=== PATIENT | male | born 1965 | race Caucasian/White ===

== ENCOUNTER 2019-04-28 18:04 | Inpatient (IN) | payer MEDICARE ==
[~2019-04-28] VITALS: Ht 162.6 cm; Wt 76.4 kg
[2019-04-28 18:40] LABS: BASOPHILS 0.1 % (0-2); EOSINOPHILS 0 % (0-7); HEMATOCRIT 30.4 % (42.0-54.0); IMMATURE GRANULOCYTES 0.4 % (0-5); LYMPHOCYTES 8.1 % (15-50); MCH 29.1 pg (26.0-34.0); MCHC 32.9 g/dL (31.0-37.0); MCV 88.4 fL (80.0-100.0); MEAN PLATELET VOLUME 10.9 fL (7.4-10.4); MONOCYTES 7.7 % (2-11); NEUTROPHILS 83.7 % (40-80); RBC 3.44 10x6/uL (4.20-6.10); RDW 16.3 % (11.5-14.5); WBC 16.3 10x3/uL (4.8-10.8)
[2019-04-28 18:42] LABS: PLATELET COUNT 238 10x3/uL (130-400)
[2019-04-28 19:05] LABS: APTT 32.7 SECONDS (22.8-39.4); INR 1.55 (0.85-1.17)
[2019-04-28 19:07] LABS: ALBUMIN 3.6 g/dL (3.4-5.0); ALKALINE PHOSPHATASE 104 U/L (46-116); ALT (SGPT) 15 U/L (10-68); CALC OSMOLALITY 277 mosm/kg (275-300); CALCIUM 9.6 mg/dL (8.5-10.1); CARBON DIOXIDE 29.1 mmol/L (21.0-32.0); CHLORIDE - SERUM 96 mmol/L (98-107); CREATININE - SERUM 6.1 mg/dL (0.6-1.3); GLUCOSE 103 mg/dL (74-106); POTASSIUM - SERUM 4.6 mmol/L (3.5-5.1); PROTEIN - SERUM 8.3 g/dL (6.4-8.2); SODIUM 137 mmol/L (136-145); UREA NITROGEN 25 mg/dL (7-18); eGFR NON AFRICAN AMERICAN 10 mL/min (90-120)
[2019-04-28 19:19] LABS: CREATINE KINASE 72 UL (21-232); MAGNESIUM - SERUM 1.9 mg/dL (1.8-2.4); TROPONIN-I 0.028 ng/mL (0.000-0.060)
[2019-04-28 19:54] LABS: CREATINE KINASE 68 UL (21-232); TROPONIN-I 0.033 ng/mL (0.000-0.060)
[2019-04-28] MEDS ORDERED: AMBIEN10 MG PO (22:25)
[2019-04-28] MEDS ORDERED: ATIVAN1 MG PO (22:26)
[2019-04-28] MEDS ORDERED: PERCOCET 5-3251 TAB PO (22:28)
[2019-04-28 23:29] VITALS: BP 149/73; BMI 28.4
[2019-04-29] VITALS (12 sets, daily range): BP systolic 118–183; BP diastolic 60–79; Ht 162.6 cm; Wt 76.4 kg
[2019-04-29 01:42] LABS: CREATINE KINASE 70 UL (21-232); TROPONIN-I 0.046 ng/mL (0.000-0.060)
[2019-04-29 07:07] LABS: BASOPHILS 0.1 % (0-2); EOSINOPHILS 0 % (0-7); HEMOGLOBIN 10.7 g/dL (13.5-17.5); IMMATURE GRANULOCYTES 0.9 % (0-5); LYMPHOCYTES 9.5 % (15-50); MCH 29.6 pg (26.0-34.0); MCHC 33.4 g/dL (31.0-37.0); MCV 88.6 fL (80.0-100.0); MEAN PLATELET VOLUME 10.7 fL (7.4-10.4); MONOCYTES 10.2 % (2-11); NEUTROPHILS 79.3 % (40-80); PLATELET COUNT 219 10x3/uL (130-400); RBC 3.61 10x6/uL (4.20-6.10); RDW 16.4 % (11.5-14.5); WBC 16.3 10x3/uL (4.8-10.8)
[2019-04-29 07:32] LABS: ALBUMIN 3.5 g/dL (3.4-5.0); ALKALINE PHOSPHATASE 114 U/L (46-116); CALCIUM 9.2 mg/dL (8.5-10.1); CARBON DIOXIDE 26.3 mmol/L (21.0-32.0); CHLORIDE - SERUM 95 mmol/L (98-107); CKMB 1.1 U/L (0.0-3.6); CREATINE KINASE 85 UL (21-232); GLUCOSE 83 mg/dL (74-106); POTASSIUM - SERUM 4.8 mmol/L (3.5-5.1); PROTEIN - SERUM 8.4 g/dL (6.4-8.2); SODIUM 139 mmol/L (136-145)
[2019-04-29 07:33] LABS: CALC OSMOLALITY 285 mosm/kg (275-300); CREATININE - SERUM 7.9 mg/dL (0.6-1.3); UREA NITROGEN 39 mg/dL (7-18)
[2019-04-29 07:34] LABS: ALT (SGPT) 444 U/L (10-68); eGFR NON AFRICAN AMERICAN 8 mL/min (90-120)
[2019-04-29 08:32] LABS: AMYLASE - SERUM 35 U/L (25-115); LIPASE 518 U/L (73-393)
[2019-04-29] MEDS ORDERED: FOSRENOL1000 MG PO (10:04)
[2019-04-29] MEDS ORDERED: LISINOPRIL20 MG PO (10:04)
[2019-04-29] MEDS ORDERED: NEPHRO-VITE RX1 TAB PO (10:05)
[2019-04-29] MEDS ORDERED: OMEPRAZOLE20 M1 PO (10:05)
[2019-04-29] MEDS ORDERED: ZOLOFT100 MG PO (10:05)
[2019-04-29] MEDS ORDERED: LYRICA75 MG PO (10:06)
[2019-04-29] MEDS ORDERED: CATAPRES0.1 MG PO (10:06)
[2019-04-29 10:42] LABS: APTT 36.1 SECONDS (22.8-39.4); INR 1.77 (0.85-1.17)
[2019-04-29 20:55] LABS: PROTEIN - BODY FLUID 6.1 G/DL
[2019-04-29 21:00] LABS: MESOTHELIALS BF 2 %; NEUT - BF 90 %
[2019-04-30] VITALS (24 sets, daily range): BP systolic 98–156; BP diastolic 46–76
[2019-04-30 05:41] LABS: BASOPHILS 0.2 % (0-2); EOSINOPHILS 0.1 % (0-7); HEMATOCRIT 28.7 % (42.0-54.0); HEMOGLOBIN 9.4 g/dL (13.5-17.5); IMMATURE GRANULOCYTES 0.9 % (0-5); LYMPHOCYTES 7.1 % (15-50); MCH 28.9 pg (26.0-34.0); MCHC 32.8 g/dL (31.0-37.0); MCV 88.3 fL (80.0-100.0); MEAN PLATELET VOLUME 10.7 fL (7.4-10.4); MONOCYTES 6.3 % (2-11); NEUTROPHILS 85.4 % (40-80); PLATELET COUNT 177 10x3/uL (130-400); RBC 3.25 10x6/uL (4.20-6.10); RDW 16.2 % (11.5-14.5); WBC 18.5 10x3/uL (4.8-10.8)
[2019-04-30 06:04] LABS: ALBUMIN 2.9 g/dL (3.4-5.0); BILIRUBIN - TOTAL 0.46 mg/dL (0.2-1.3); CALCIUM 8.1 mg/dL (8.5-10.1); CARBON DIOXIDE 25.1 mmol/L (21.0-32.0); CREATININE - SERUM 9.5 mg/dL (0.6-1.3); PHOSPHOROUS 8.9 mg/dL (2.5-4.9); POTASSIUM - SERUM 5.1 mmol/L (3.5-5.1); PROTEIN - SERUM 6.3 g/dL (6.4-8.2)
[2019-04-30 08:34] LABS: LIPASE 1006 U/L (73-393)
--- NOTE | 2019-04-30 08:43 | OP ---
PATIENT NAME: GERALDINE HOWELL MEDICAL RECORD: [id number] :67 LOCATION:D.CVI D.CV03 ADMISSION DATE:04/29/19 SURGEON: ZACHARY GREENBERG MD DATE OF OPERATION: 04/29/2019 SURGEON: Zachary Greenberg MD DYE REEL OPERATOR HELPER: Asa Hutchinson. OPERATION PERFORMED: Subxiphoid pericardial window. PREOPERATIVE DIAGNOSIS: Pericardial effusion and chronic kidney failure. POSTOPERATIVE DIAGNOSIS: Pericardial effusion and chronic kidney failure. ANESTHESIA: General endotracheal anesthesia. ESTIMATED BLOOD LOSS: Minimal. SPECIMENS: Pericardial fluid for aerobic, anaerobic, fungal and AFB cultures, cytology, chemistry, cell count and pericardial biopsy for permanent pathology. CONDITION: Stable. DISPOSITION: ICU. OPERATIVE FINDINGS: 1. Transesophageal echocardiography confirmed circumferential pericardial effusion with possible early right ventricular collapse, no residual fluid after pericardial drainage. 2. A 1 x 1 cm pericardial window, fibrinous debris within the pericardial cavity and a total of 600 cc of bloody appearing pericardial fluid with resultant blood pressure increased by 20-mm after drainage. 3. Drain placed within the pericardial cavity. OPERATIVE INDICATION: Pericardial effusion. DESCRIPTION OF PROCEDURE: The patient was brought to the operating suite. General anesthesia was obtained. The patient was prepped and draped. Vertical incision made over the xiphoid, portion of the xiphoid was removed. Upward retraction on the costal margin. The pericardium was identified, aspirated and an incision was made. Fluid was drained and captured for a specimen. The 1 x 1 cm biopsy was removed. Direct finger palpation revealed some fibrinous debris. Suction was used to remove the remainder of the fluid. A drain was placed through a separate stab wound into the diaphragmatic surface of the pericardium. Marcaine was instilled. Fascia was closed. Subcutaneous tissue was closed. Skin was closed. Dermabond was placed. The needle and sponge counts reported as correct and the patient was taken to the cardiovascular intensive care in stable condition. TRANSINT:[id number] Voice Confirmation ID: [id number] DOCUMENT ID: [id number] OPERATIVE REPORT [id number] GERALDINE HOWELL DANIEL W MD at 0843 CC: SHERMAN DICKSON MD and CHEMO KNOWLES MD [id number] DICTATION DATE: 04/29/19 180 FIRE SUPPORT SPECIALIST: 04/29/19 4931 ADM IN [facility] [address] [id number]
[2019-04-30 08:48] LABS: AMYLASE - SERUM 55 U/L (25-115)
[2019-05-01] VITALS (21 sets, daily range): BP systolic 87–154; BP diastolic 28–68
[2019-05-01 05:53] LABS: HEMATOCRIT 31.9 % (42.0-54.0); HEMOGLOBIN 10.8 g/dL (13.5-17.5); MCH 29.3 pg (26.0-34.0); MCHC 33.9 g/dL (31.0-37.0); MCV 86.4 fL (80.0-100.0); MEAN PLATELET VOLUME 10.7 fL (7.4-10.4); RBC 3.69 10x6/uL (4.20-6.10); RDW 15.8 % (11.5-14.5); WBC 16.9 10x3/uL (4.8-10.8)
[2019-05-01 06:21] LABS: ALBUMIN 3.1 g/dL (3.4-5.0); ANION GAP 18.3 mmol/L (8-16); BILIRUBIN - DIRECT 0.19 mg/dL (0.00-0.30); BILIRUBIN - INDIRECT 0.28 mg/dL (0.00-1.00); BILIRUBIN - TOTAL 0.47 mg/dL (0.2-1.3); CALCIUM 8.7 mg/dL (8.5-10.1); CARBON DIOXIDE 26.5 mmol/L (21.0-32.0); CREATININE - SERUM 7.8 mg/dL (0.6-1.3); PHOSPHOROUS 6.8 mg/dL (2.5-4.9); POTASSIUM - SERUM 3.8 mmol/L (3.5-5.1)
[2019-05-01 07:13] LABS: HEPATITIS C ANTIBODY <0.1 (0.0-0.9)
[2019-05-01 21:06] LABS: ACID FAST SMEAR Negative (()); AFB SPECIMEN PROCESSING Concentration (())
[2019-05-02 03:00] VITALS: BP 100/61
[2019-05-02 06:04] LABS: HEMATOCRIT 26.4 % (42.0-54.0); HEMOGLOBIN 8.8 g/dL (13.5-17.5); MCH 28.7 pg (26.0-34.0); MCHC 33.3 g/dL (31.0-37.0); MEAN PLATELET VOLUME 10.8 fL (7.4-10.4); RBC 3.07 10x6/uL (4.20-6.10); RDW 16.3 % (11.5-14.5); WBC 13.1 10x3/uL (4.8-10.8)
[2019-05-02 06:24] LABS: ANION GAP 21.5 mmol/L (8-16); BILIRUBIN - TOTAL 0.41 mg/dL (0.2-1.3); CALCIUM 8.6 mg/dL (8.5-10.1); CARBON DIOXIDE 22.4 mmol/L (21.0-32.0); CREATININE - SERUM 9.1 mg/dL (0.6-1.3); POTASSIUM - SERUM 3.9 mmol/L (3.5-5.1); PROTEIN - SERUM 6.3 g/dL (6.4-8.2)
[2019-05-02 08:33] VITALS: BP 142/68
[2019-05-02 12:06] VITALS: BP 142/53
[2019-05-02 15:00] VITALS: BP 132/71
[2019-05-02 20:00] VITALS: BP 107/56
[2019-05-03] VITALS: BP 132/53
[2019-05-03 04:00] VITALS: BP 137/71
[2019-05-03 05:33] LABS: HEMOGLOBIN 7.8 g/dL (13.5-17.5); MCH 28.6 pg (26.0-34.0); MCHC 33.9 g/dL (31.0-37.0); MCV 84.2 fL (80.0-100.0); MEAN PLATELET VOLUME 9.8 fL (7.4-10.4); RBC 2.73 10x6/uL (4.20-6.10); RDW 16.1 % (11.5-14.5)
[2019-05-03 06:01] LABS: ALBUMIN 2.8 g/dL (3.4-5.0); ANION GAP 21.5 mmol/L (8-16); BILIRUBIN - TOTAL 0.43 mg/dL (0.2-1.3); CALCIUM 8.6 mg/dL (8.5-10.1); CARBON DIOXIDE 19.8 mmol/L (21.0-32.0); CREATININE - SERUM 10.7 mg/dL (0.6-1.3); POTASSIUM - SERUM 4.3 mmol/L (3.5-5.1); PROTEIN - SERUM 6.5 g/dL (6.4-8.2)
[2019-05-03 08:25] VITALS: BP 131/70
[2019-05-03 14:08] LABS: FUNGUS STAIN Final report (())
[2019-05-03 20:20] VITALS: BP 144/62
[2019-05-04] VITALS: BP 134/62
[2019-05-04 04:00] VITALS: BP 146/63
[2019-05-04 05:21] LABS: HEMATOCRIT 23.4 % (42.0-54.0); HEMOGLOBIN 7.9 g/dL (13.5-17.5); MCH 28.7 pg (26.0-34.0); MCHC 33.8 g/dL (31.0-37.0); MCV 85.1 fL (80.0-100.0); MEAN PLATELET VOLUME 10.2 fL (7.4-10.4); RBC 2.75 10x6/uL (4.20-6.10); RDW 16.3 % (11.5-14.5); WBC 9.3 10x3/uL (4.8-10.8)
[2019-05-04 05:53] LABS: ALBUMIN 2.8 g/dL (3.4-5.0); ANION GAP 16.7 mmol/L (8-16); BILIRUBIN - TOTAL 0.45 mg/dL (0.2-1.3); CALCIUM 8.7 mg/dL (8.5-10.1); CREATININE - SERUM 8.4 mg/dL (0.6-1.3); POTASSIUM - SERUM 4.1 mmol/L (3.5-5.1); PROTEIN - SERUM 6.3 g/dL (6.4-8.2)
[2019-05-04 06:13] LABS: CARBON DIOXIDE 27.4 mmol/L (21.0-32.0)
[2019-05-04 08:00] VITALS: BP 168/77
--- NOTE | 2019-05-04 14:28 | EC ---
PATIENT:GERALDINE HOWELL DATE OF SERVICE: 04/29/19 SEX: M MEDICAL RECORD: [id number] DATE OF : 67 LOCATION:D.M2 D.212 AGE OF PATIENT: 53 ADMISSION DATE: 04/29/19 REFERRING PHYSICIAN: INTERPRETING PHYSICIAN: CHEMO KNOWLES MD ECHOCARDIOGRAM REPORT ECHO CHARGES 4 ECHO COMPLETE Date: 04/28/19 CLINICAL DIAGNOSIS: PLEURAL EFFUSION/CP ECHOCARDIOGRAPHIC MEASUREMENTS (adult normal given) AC root (d.<3.7cm) 3.4 cm LV Septum d (<1.2 cm> 1.6 cm Valve Excursion 2.3 cm LV Septum (systole) 2.1 cm Left Atria (s.<4.0cm> 4.5 cm LVPW d(<1.2cm) 1.6 cm RV (d.<2.3cm) 2.3 cm LVPW (sytole) 2.6 cm LV diastole(<5.6CM) 5.0 cm MV E-F(>70mm/sec) cm LV systole 2.2 cm LVOT Diameter 1.6 cm MV exc.(>10mm) cm Est.ejection fraction (50-75%) % DOPPLER: LVIT cm/sec A 69.0 cm/sec E 168 cm/sec LA cm/sec RVSP 44.2 mmHg LVOT 136 cm/sec AOP1/2T m/s Asc. Ao 241 cm/sec RVOT 66.0 cm/sec RA cm/sec PA 104 cm/sec AV Gradient Peak 23.3 mmHg AV Mean 10.2 mmHg AV Area 1.4 cm MV Gradient Peak 16.0 mmHg MV Mean 4.1 mmHg MV Area cm COMMENTS: Vending Machine Refiller: Mario DAVIDOE Career Manager: 3 Dr. Ellis TAPE# PACS Pericardial Effusion Y DATE OF SERVICE: 04/29/2019 Adequate 2D, color flow imaging, spectral Doppler, and M-Mode LVH is present. LV internal dimension is normal. Wall motion is normal. EF is greater than or equal to 55%. Aortic valve sclerosis is without stenosis by Doppler interrogation. Left atrium is dilated at 4.5 cm. Mitral valve is thickened. Mitral annular calcification. Mild MR. Right-sided chambers are grossly normal. Mild TR. Note is made of moderate pericardial effusion with no evidence of hemodynamic compromise. ECHOCARDIOGRAM REPORT [id number] GERALDINE HOWELL TRANSINT:[id number] Voice Confirmation ID: [id number] DOCUMENT ID: [id number] CHEMO KNOWLES MD at 1428 CC: [id number] DICTATION DATE: 04/29/[address] CONTRACTOR: 04/29/19 1529 ADM IN [facility] [address] [place] [address]
--- NOTE | 2019-05-04 16:29 | MORECARE ---
CASE MANAGEMENT DISCHARGE SUMMARY PATIENT: GERALDINE HOWELL UNIT: [id number] ADM DATE: 04/29/19 AGE: 53 : 67 SEX: M ROOM/BED: D.[facility] AUTHOR: LIZBTE MCCOY PHYSICIAN: REFERRING PHYSICIAN: AMY WHITE MD DATE OF SERVICE: 05/04/19 Discharge Plan Patient Name: GERALDINE HOWELL Facility: [facility]:[place] : 1965 Planned Disposition: Home Anticipated Discharge Date: 05/05/19 Discharge Date: Expected LOS: 6 Initial Reviewer: [email or web address] Initial Review Date: 04/28/2019 Generated: 05/04/19 5:29 pm DCPIA - Discharge Planning Initial Assessment Updated by [id number]: Juan F Craven on 05/04/19 4:28 pm * Is the patient Alert and Oriented? Yes * How many steps to enter\exit or inside your home? 0-O / 2-I * PCP DR. DAMON CAMPA * Pharmacy [facility] [place] * Preadmission Environment Home with Family * ADLs Independent * Equipment Cane * Other Equipment NO MEDICAL EQUIPMENT PROVIDER PREFERNCE (USE ONE IN [place] IF NEEDED) * List name and contact numbers for known caregivers / representatives who currently or will assist patient after discharge: GURPREET HOWELL, MOTHER, * Verbal permission to speak to the caregivers and representatives has been obtained from the patient. N/A * Community resources currently utilized Other * Please name any agencies selected above. OUTPATIENT DIALYSIS, [facility], MWF, 0600, DRIVES SELF * Additional services required to return to the preadmission environment? No * Can the patient safely return to the preadmission environment? Yes * Has this patient been hospitalized within the prior 30 days at any hospital? No Coverage Notice Reviewer: [id number] - Juan F Craven Notice Issued Date-Time: 05/04/2019 14:55 Notice Type: IM Discharge Notice Notice Delivered To: Patient Relationship to Patient: Assistant Produce Manager Name: Delivery Method: HAND - Hand Delivered Kelsie Days: Prior Verbal Notification: Recipient Understood Notice: Yes Recipient Signature: Yes Med Rec Note Co-signed by Attending: Coverage Notice Comment: Patient Name: GERALDINE HOWELL Page [phone] at 1629 All edits/amendments must be made on the electronic document DICTATION DATE: 05/04/191628 APIGEE DEVELOPER: BERYL 05/04/191628 RPT#: [id number] DC DATE: STATUS: ADM IN [facility] [address] [place] [address] END OF REPORT
--- NOTE | 2019-05-04 16:38 | MORECARE ---
CASE MANAGEMENT DISCHARGE SUMMARY PATIENT: GERALDINE HOWELL UNIT: [id number] ADM DATE: 04/29/19 AGE: 53 : 67 SEX: M ROOM/BED: D.2121 AUTHOR: DARIUSDOC PHYSICIAN: REFERRING PHYSICIAN: AMY KC MD DATE OF SERVICE: 05/04/19 Discharge Plan Patient Name: GERALDINE HOWELL Facility: [facility]:[place] : 1965 Planned Disposition: Home Anticipated Discharge Date: 05/05/19 Discharge Date: Expected LOS: 6 Initial Reviewer: [email or web address] Initial Review Date: 04/28/2019 Generated: 05/04/19 5:38 pm Comments DCP- Discharge Planning Updated by [email or web address]: Juan F Craven on 05/04/19 3:[address] Patient Name: GERALDINE HOWELL Admission Status: ER Accout number: [id number] Admission Date: 04-29-2019 : 1965 Admission Diagnosis:PERICARDIAL EFFUSION (NONINFLAMMATORY) Attending: Amy Kc Current LOS: 5 Anticipated DC Date: 05-05-2019 Planned Disposition: Home Primary Insurance: MEDICARE A & B Discharge Planning Comments: CM MET WITH PT IN ROOM TO DISCUSS DISCHARGE PLANNING AND NEEDS. PT REPORTS LIVING AT HOME INDEPENDENTLY WITH HIS MOTHER. PT HAS A CANE THAT HE USES SOMETIMES WITH NO MEDICAL EQUIPMENT PROVIDER PREFERENCE. PT HAS NO OUTSIDE SERVICES ASSISTING IN THE HOME. PT GOES TO OUTPATIENT DIALYSIS IN [facility], 0600AM SCHEDULE, PT DRIVES SELF. CM DISCUSSED AVAILABILITY OF HOME HEALTH, REHAB SERVICES AND MEDICAL EQUIPMENT. PT DENIES DISCHARGE NEEDS, REPORTS HIS SISTER WILL PICK HIM UP FOR DISCHARGE HOME. IMPORTANT MESSAGE FROM MEDICARE PROVIDED AND EXPLAINED. PT PLANS TO DISCHARGE HOME WITH MOTHER, HAS NO ANTICIPATED DISCHARGE NEEDS. FAMILY TO TRANSPORT HOME. CM TO FOLLOW AND ASSIST IF NEEDED. Mailroom Coordinator: Juan F Craven DCPIA - Discharge Planning Initial Assessment Updated by [email or web address]: Juan F Craven on 05/04/19 4:28 pm * Is the patient Alert and Oriented? Yes * How many steps to enter\exit or inside your home? 0-O / 2-I * PCP DR. DAMON CAMPA * Pharmacy [facility] [place] * Preadmission Environment Home with Family * ADLs Independent * Equipment Cane * Other Equipment NO MEDICAL EQUIPMENT PROVIDER PREFERNCE (USE ONE IN [place] IF NEEDED) * List name and contact numbers for known caregivers / representatives who currently or will assist patient after discharge: GURPREET OHWELL, MOTHER, * Verbal permission to speak to the caregivers and representatives has been obtained from the patient. N/A * Community resources currently utilized Other * Please name any agencies selected above. [facility], M[facility], 0600, DRIVES SELF * Additional services required to return to the preadmission environment? No * Can the patient safely return to the preadmission environment? Yes * Has this patient been hospitalized within the prior 30 days at any hospital? No Coverage Notice Reviewer: [email or web address] Lisa Craven Notice Issued Date-Time: 05/04/2019 14:55 Notice Type: IM Discharge Notice Notice Delivered To: Patient Relationship to Patient: Crematory Attendant Name: Delivery Method: HAND - Hand Delivered Kelsie Days: Prior Verbal Notification: Recipient Understood Notice: Yes Recipient Signature: Yes Med Rec Note Co-signed by Attending: Coverage Notice Comment: Last DP export: 05/04/19 3:29 pm Patient Name: GERALDINE HOWELL Page [phone] at 1638 All edits/amendments must be made on the electronic document DICTATION DATE: 05/04/191637 SUPERVISOR GRAIN AND YEAST PLANTS: BERYL 05/04/191637 RPT#: [id number] DC DATE: STATUS: ADM IN [facility] [address] [place] [address] END OF REPORT
[2019-05-04 20:00] VITALS: BP 160/72
[2019-05-05] VITALS: BP 173/80
[2019-05-05 04:30] VITALS: BP 187/80
[2019-05-05 06:37] LABS: BASOPHILS 0.3 % (0-2); HEMATOCRIT 24.7 % (42.0-54.0); HEMOGLOBIN 8.1 g/dL (13.5-17.5); IMMATURE GRANULOCYTES 0.5 % (0-5); MCHC 32.8 g/dL (31.0-37.0); MCV 85.5 fL (80.0-100.0); MEAN PLATELET VOLUME 10.4 fL (7.4-10.4); MONOCYTES 13.2 % (2-11); PLATELET COUNT 140 10x3/uL (130-400); RBC 2.89 10x6/uL (4.20-6.10); RDW 16.6 % (11.5-14.5); WBC 9.2 10x3/uL (4.8-10.8)
[2019-05-05 07:15] LABS: ALBUMIN 2.8 g/dL (3.4-5.0); BILIRUBIN - TOTAL 0.46 mg/dL (0.2-1.3); CALCIUM 9.5 mg/dL (8.5-10.1); CARBON DIOXIDE 27.5 mmol/L (21.0-32.0); CREATININE - SERUM 7.4 mg/dL (0.6-1.3); PHOSPHOROUS 5.5 mg/dL (2.5-4.9); POTASSIUM - SERUM 3.5 mmol/L (3.5-5.1); PROTEIN - SERUM 6.8 g/dL (6.4-8.2)
[2019-05-05 07:56] VITALS: BP 174/76
[2019-05-05 11:26] VITALS: BP 188/83
[2019-05-05 20:00] VITALS: BP 203/78
[2019-05-06] VITALS: BP 169/76
[2019-05-06 04:30] VITALS: BP 165/79
[2019-05-06 05:52] LABS: AMYLASE - SERUM 114 U/L (25-115)
[2019-05-06 05:53] LABS: LIPASE 2174 U/L (73-393)
[2019-05-06 08:00] VITALS: BP 158/69
--- NOTE | 2019-05-07 07:06 | DS ---
PATIENT:GERALDINE REGALADO :[birth year] MEDICAL RECORD: [id number] DISCHARGE SUMMARY ADMISSION DATE: 04/29/19 DISCHARGE DATE: 05/06/19 HISTORY OF PRESENT ILLNESS: Mr. Regalado is a 53-year-old white male with end-stage renal disease, chronic dialysis who came to the Emergency Room with recurrent nausea, vomiting, and chest pain, found on CT to have a large pericardial effusion in [place] and transferred here. HOSPITAL COURSE: The patient was seen by Dr. Larios and cardiology confirmed a large pericardial effusion. His amylase and lipase were also elevated. He did have a pericardial window done by Dr. Larios, it was 600 cc of pericardial fluid removed. Culture thus far has been negative. His amylase and lipase all normal, was improving at the time of discharge, his lipase was still elevated, but his amylase was normal. He was eating a regular diet. His abdominal ultrasound that revealed hepatosplenomegaly, otherwise negative. He underwent acute dialysis without difficulty. He was able to restart on his home meds. He was otherwise stable for discharge. DISCHARGE DIAGNOSES: 1. Chest pain due to pericardial effusion status post pericardial window. 2. Elevated amylase and lipase, etiology unclear. X-rays negative. 3. End-stage renal disease. 4. Hypertension. 5. End-stage renal disease. PLAN: The patient will be discharged today. He will resume his home meds, diet. I will see him on dialysis in [place] next week. He will be in [place] [facility] tomorrow. He will resume his home medications. TRANSINT:[id number] Voice Confirmation ID: [id number] DOCUMENT ID: [id number] SHERMAN DICKSON MD at 0706 CC: [id number] DICTATION DATE: 05/06/19 08 ANTHROPOLOGY FACULTY MEMBER: 05/07/19 0204 DIS IN [id number] [place] [address]
--- NOTE | 2019-05-07 07:56 | MORECARE ---
CASE MANAGEMENT DISCHARGE SUMMARY PATIENT: GERALDINE HOWELL UNIT: [id number] ADM DATE: 04/29/19 AGE: 53 : 67 SEX: M ROOM/BED: D.2121 AUTHOR: LIZBET MCCOY PHYSICIAN: REFERRING PHYSICIAN: AMY KC MD DATE OF SERVICE: 05/07/19 Discharge Plan Patient Name: GERALDINE HOWELL Facility: [facility]:[place] : 1965 Planned Disposition: Home Anticipated Discharge Date: 05/06/19 Discharge Date: 05/06/2019 Expected LOS: 7 Initial Reviewer: [email or web address] Initial Review Date: 04/28/2019 Generated: 05/07/19 8:56 am DCP- Discharge Planning Updated by [email or web address]: Juan F Craven on 05/04/19 3:[address] Patient Name: GERALDINE HOWELL Admission Status: ER Accout number: [id number] Admission Date: 04-29-2019 : 1965 Admission Diagnosis:PERICARDIAL EFFUSION (NONINFLAMMATORY) Attending: Amy Kc Current LOS: 5 Anticipated DC Date: 05-05-2019 Planned Disposition: Home Primary Insurance: MEDICARE A & B Discharge Planning Comments: CM MET WITH PT IN ROOM TO DISCUSS DISCHARGE PLANNING AND NEEDS. PT REPORTS LIVING AT HOME INDEPENDENTLY WITH HIS MOTHER. PT HAS A CANE THAT HE USES SOMETIMES WITH NO MEDICAL EQUIPMENT PROVIDER PREFERENCE. PT HAS NO OUTSIDE SERVICES ASSISTING IN THE HOME. PT GOES TO OUTPATIENT DIALYSIS IN [facility], 0600AM SCHEDULE, PT DRIVES SELF. CM DISCUSSED AVAILABILITY OF HOME HEALTH, REHAB SERVICES AND MEDICAL EQUIPMENT. PT DENIES DISCHARGE NEEDS, REPORTS HIS SISTER WILL PICK HIM UP FOR DISCHARGE HOME. IMPORTANT MESSAGE FROM MEDICARE PROVIDED AND EXPLAINED. PT PLANS TO DISCHARGE HOME WITH MOTHER, HAS NO ANTICIPATED DISCHARGE NEEDS. FAMILY TO TRANSPORT HOME. CM TO FOLLOW AND ASSIST IF NEEDED. Crusher Assembler: Juan F Craven DCPIA - Discharge Planning Initial Assessment Updated by [id number]: Juan F Craven on 05/04/19 4:28 pm * Is the patient Alert and Oriented? Yes * How many steps to enter\exit or inside your home? 0-O / 2-I * PCP DR. DAMON CAMPA * Pharmacy [facility] [place] * Preadmission Environment Home with Family * ADLs Independent * Equipment Cane * Other Equipment NO MEDICAL EQUIPMENT PROVIDER PREFERNCE (USE ONE IN [place] IF NEEDED) * List name and contact numbers for known caregivers / representatives who currently or will assist patient after discharge: GURPREET HOWELL, MOTHER, * Verbal permission to speak to the caregivers and representatives has been obtained from the patient. N/A * Community resources currently utilized Other * Please name any agencies selected above. [facility], [facility], [facility], 0600, DRIVES SELF * Additional services required to return to the preadmission environment? No * Can the patient safely return to the preadmission environment? Yes * Has this patient been hospitalized within the prior 30 days at any hospital? No Coverage Notice Reviewer: [email or web address] Lisa Craven Notice Issued Date-Time: 05/04/2019 14:55 Notice Type: IM Discharge Notice Notice Delivered To: Patient Relationship to Patient: Consumer Studies Professor Name: Delivery Method: HAND - Hand Delivered Kelsie Days: Prior Verbal Notification: Recipient Understood Notice: Yes Recipient Signature: Yes Med Rec Note Co-signed by Attending: Coverage Notice Comment: Last DP export: 05/04/19 3:38 pm Patient Name: GERALDINE HOWELL Page [phone] at 0756 All edits/amendments must be made on the electronic document DICTATION DATE: 05/07/19754 ASPHALT PAVING FOREMAN: BERYL 05/07/19754 RPT#: [id number] DC DATE:05/06/19 STATUS: DIS IN [facility] [address] [place] [address] END OF REPORT
--- NOTE | 2019-05-12 14:31 | TEE ---
PATIENT:GERALDINE HOWELL MEDICAL RECORD: [id number] LOCATION:D. D.212 AGE OF PATIENT: 53 ADMISSION DATE: 04/29/19 SEX: M REFERRING PHYSICIAN: INTERPRETING PHYSICIAN: JOSE GARCIA MD TRANSESOPHAGEAL ECHOCARDIOGRAM Date: 04/29/19 OLEKSANDR CHARGE Y INDICATIONS: PERICARDIAL WINDOW PREMEDICATIONS: PATIENT'S RESPONSE PROCEDURE DOPPLER MEASUREMENTS: LVIT LA PA 104 RA LVOT 136 RVOT 66.0 Asc. Ao 241 AV Gradient Peak 23.3 AV Mean 10.2 AV Area 1.4 MV Gradient Peak 16.0 MV Mean 4.1 MV Area INTERPRETATION: Doppler: 2-D: COLOR FLOW DOPPLER NORMAL SALINE STUDY: MISCELLANOUS: DIAGNOSIS: PLAN: Cloth Shader:Mary Ellis Direct Chill Caster: Mario HONRER COMMENTS: DATE OF SERVICE: 04/29/2019 PROCEDURE: Transesophageal echo evaluation during pericardial window procedure. FINDINGS: 1. Left ventricular chamber size is within normal limits. Left ventricular systolic function is normal. Overall ejection fraction estimated at 55% to 60%. 2. Left atrium, right atrium, and right ventricular chamber sizes are within normal limits. TRANSESOPHAGEAL ECHOCARDIOGRAM REPORT [id number] GERALDINE HOWELL 3. Valvular structures have normal structure and motion. 4. Doppler interrogation reveals no significant valvular insufficiency or stenosis. 5. Moderate pericardial effusion is present. After pericardial window was present, no discernible pericardial effusion was present any longer. TRANSINT:[id number] Voice Confirmation ID: [id number] DOCUMENT ID: [id number] at 1431 CC: [id number] DICTATION DATE: 04/30/1942 BEVERAGE SALES CONSULTANT: 04/30/19 2359 DIS IN [address] [place] [address]
[2019-05-28 16:08] LABS: FUNGUS MYCOLOGY CULTURE Final report (())
== END 2019-05-06 10:50 | disposition home or self-care (01) | DRG 270 ==
LOC: D.ER 18:04 → D.M2 19:02 → OBSVTIME 19:02 → D.M2 04-29 08:52 → D.CVICU 04-29 08:52 → D.M2 05-02 06:04
PROVIDERS: Family Medicine; Internal Medicine; Internal Medicine Nephrology; Thoracic Surgery (Cardiothoracic Vascular Surgery); ADMIT Internal Medicine Nephrology; ATTEND Internal Medicine Nephrology
PROC: B24BZZ4 Ultrasonography of Heart with Aorta, Transesophageal (ICD-10-PCS; 2019-04-29)
PROC: 0W9D0ZZ Drainage of Pericardial Cavity, Open Approach (ICD-10-PCS; principal; 2019-04-29 15:00)
DX: I31.3 Pericardial effusion (noninflammatory) (principal); N18.6 End stage renal disease; I12.0 Hypertensive chronic kidney disease with stage 5 chronic kidney disease or end stage renal disease; Z99.2 Dependence on renal dialysis; I25.10 Atherosclerotic heart disease of native coronary artery without angina pectoris; J44.9 Chronic obstructive pulmonary disease, unspecified; D63.1 Anemia in chronic kidney disease; R74.8 Abnormal levels of other serum enzymes

== ENCOUNTER 2020-02-20 22:26 | Inpatient (IN) | payer MEDICARE ==
[~2020-02-20] VITALS: Ht 162.6 cm; Wt 79.2 kg
--- NOTE | 2020-02-20 | NUR ---
A&O X 4. PT SOB. REPORTS PAIN/NAUSEA. SPO2 93% ON 10L HIGHFLOW. BP 193/101. INCONT BM, REPORTS NEED TO PASS ANOTHER BM. HERNESTO DURAN PAGED.
--- NOTE | ~2020-02-20 | TEE ---
PATIENT:GERALDINE HOWELL MEDICAL RECORD: [id number] LOCATION:[place] [address] AGE OF PATIENT: 54 ADMISSION DATE: 02/20/20 SEX: M REFERRING PHYSICIAN: INTERPRETING PHYSICIAN: MAMADOU GOODRICH MD TRANSESOPHAGEAL ECHOCARDIOGRAM Date: 02/25/20 OLEKSANDR CHARGE Y INDICATIONS: CABG PREMEDICATIONS: PATIENT'S RESPONSE PROCEDURE DOPPLER MEASUREMENTS: LVIT LA PA 90 RA LVOT 105 RVOT 86 Asc. Ao 166 AV Gradient Peak 11.1 AV Mean 4.9 AV Area 1.4 MV Gradient Peak 18.9 MV Mean 9.1 MV Area INTERPRETATION: Doppler: 2-D: COLOR FLOW DOPPLER NORMAL SALINE STUDY: MISCELLANOUS: DIAGNOSIS: PLAN: Field Nurse:Radha Goodrich Licensing Officer: Vipin JAFFE COMMENTS: DATE OF SERVICE: The transesophageal echocardiogram during coronary artery bypass grafting. Left ventricle shows mild left ventricular hypertrophy. Left atrium is dilated. Pre-CABG. The ejection fraction to 45% with mild aortic insufficiency and trace TRANSESOPHAGEAL ECHOCARDIOGRAM REPORT [id number] GERALDINE HOWELL tricuspid regurgitation and mild mitral regurgitation. Post-coronary artery bypass grafting. The ejection fraction is 55% to 60%. There is mild mitral regurgitation and trace tricuspid regurgitation. Dimensions of the left ventricle were maintained. TRANSINT:[id number] Voice Confirmation ID: [id number] DOCUMENT ID: [id number] MAMADOU GOODRICH MD CC: [id number] DICTATION DATE: 02/25/201747 GLASS CARRIER: 02/26/20 0506 ADM IN [facility] [address] [place] [address]
--- NOTE | ~2020-02-20 | HEMODYNAMI ---
PATIENT:GERALDINE HOWELL MEDICAL RECORD: [id number] : 67 LOC[id number] ADMISSION DATE: 02/20/20 Generatedon:02/23/202010:18 Patient name: GERALDINE HOWELL Patient #: [id number] SSN: [id number] : 1965 Date of study: 02/23/2020 Page: Of Hemodynamic Procedure Report Patient Data Patient Demographics Procedure consent was obtained First Name: GERALDINE Gender: Male Last Name: DANTE : 1965 Middle Initial: MONALISA Age: 54 year(s) Patient #: [id number] Race: SSN: [id number] Additional ID: [id number] Contact details [address]: [address] [place] [address] State: [place] City: [place] Zip code: [address] Past Medical History Allergies Allergen Reaction Date Comments Reported Other allergy 02/23/2020 PCN, SULFA, SUDAFED Admission Admission Data Admission Date: 02/20/2020 Admission Time: 23:06 Arrival Date: 02/23/2020 Arrival Time: 0:00 Admit Source: Other Insurance Payor: Medicare Room #: D.2134 [facility] #: [id number] Height (in.): 64 BSA: 1.74 (m2) Height (cm.): 162.56 BMI: 26.09 (kg/m2) Weight (lbs.): 151.99 Weight (kg.): 68.94 Lab Results Lab Result Date: 02/23/2020 Lab Result Time: 0:00 Biochemistry Name Units Result Min Max BUN mg/dl 43 --(----)-* 7 18 Creatinine mg/dl 8.9 --(----)-* 0.6 1.3 eGFR ml/min 7.728163 *-(----)-- 90 120 NONAFRICAN CBC Name Units Result Min Max Hematocrit % 32.3 *-(----)-- 42 54 Hemoglobin g/dl 10.1 *-(----)-- 13.5 17.5 Procedure Procedure Types Cath Procedure Diagnostic Procedure [facility] w/Coronaries Sedation Charges Moderate Sedation up to 15 minutes Peripheral Cath Diagnostic Procedure Abd/Extremity Aortagram Procedure Description Procedure Date Procedure Date: 02/23/2020 Procedure Start Time: 9:48 Procedure End Time: 10:16 Procedure Staff Name Function Kalyan Conner MD Performing Physician Emile Garcia RN Nurse Sophie Smith RT Scrub Traci Ziegler RT Monitor Indication COPD CAD Procedure Data Cath Procedure Fluoroscopy Diagnostic fluoroscopy Total fluoroscopy Time: 4.7 time: 4.7 min min Diagnostic fluoroscopy Total fluoroscopy dose: 334 dose: 334 mGy mGy Contrast Material Contrast Material Type Amount (ml) Isovue 370 45 Entry Location Entry Primary Successful Side Size Upsize Upsize Entry Closure Succes sful Closure Location (Fr) 1 (Fr) 2 (Fr) Remarks Device Remarks Femoral Right 6 Fr 6 Fr Exoseal artery Long Short Estimated blood loss: 5 ml Diagnostic catheters Device Type Used For End Catheter Placement MULTIPACK Pigtail 5 Fr Procedure catheter MULTIPACK JL 4.0 5Fr Procedure catheter MULTIPACK 3DRC 5Fr Procedure catheter Procedure Complications No complications Procedure Medications Medication Administration Route Dosage Oxygen etCO2 Nasal cannula 3 l/min Plavix P.O. 300 mg Lidocaine 2% added to field 20 Heparin Flush Bag added to field 2 bags (1000units/500ml NS) 0.9% NaCl I.V. Versed I.V. 0.5 mg Hemodynamics Rest BSA: 1.74 (m2) HGB: 10.1 (g/dl) O2 Consumption: Estimated: 205.06 (ml/min) O2 Co nsumption indexed: Estimated:117.85 (ml/min/m) Heart Rate: 67 (bpm) Pressure Samples Time Site Value (mmHg) Purpose Heart Use Rate(bpm) 9:57 LV 157/-2,28 Snapshot 66 9:58 AO 141/68(95) Pullback 65 9:58 LV 139/16,24 Pullback 65 Gradients Valve Time Site 1 Site 2 Mean SEP/DFP Peak To Heart Use (mmHg) (sec/min) Peak Rate (mmHg) (bpm) Aortic 9:58 LV AO 0 15 0 65 139/16,24 141/68(95) Calculations Valve P-P Mean Valve Index Valve Source Name Gradient Area Flow (cm2) Aortic 0 0 0 0 Snapshots Pre Cath Intra NCS Post Cath Vital Signs Time Heart Resp SPO2 etCO2 NIBP (mmHg) Rhythm Pain Sedation Rate (ipm) (%) (mmHg) Status Level (bpm) 9:31:09 67 13 88 33.6 129/81(107) NSR 0 (11) 10(A) , No pain 9:35:42 66 19 90 32.9 133/70(95) NSR 0 (11) 10(A) , No pain 9:40:12 67 36 90 32.1 126/77(104) NSR 0 (11) 10(A) , No pain 9:44:42 66 17 92 28.4 133/70(100) NSR 0 (11) 10(A) , No pain 9:49:14 65 17 93 32.9 139/117(127) NSR 0 (11) 10(A) , No pain 9:54:00 65 21 93 23.9 135/54(104) NSR 0 (11) 10(A) , No pain 10:00:15 65 22 94 29.1 94/53(72) NSR 0 (11) 10(A) , No pain 10:05:40 65 19 95 27.7 131/89(104) NSR 0 (11) 10(A) , No pain 10:11:32 66 19 94 27.6 93/53(88) NSR 0 (11) 10(A) , No pain 10:16:58 65 22 93 28.4 137/79(109) NSR 0 (11) 10(A) , No pain Medications Time Medication Route Dose Verified Delivered Reason Notes Effe ctiveness by by 9:32:35 Oxygen etCO2 3 Norred Buffie used for Nasal l/min Ubaldo Garcia RN procedure cannula 9:32:42 Plavix P.O. 300 Norred Buffie Per mg Ubaldo Garcia RN physician 9:32:53 Lidocaine 2% added 20ml Norred Norred for local to vial Ubaldo Conner MD anesthetic field 9:32:59 Heparin Flush added 2 Norred Norred used for Bag to bags Ubaldo Conner MD procedure (1000units/500ml field NS) 9:33:08 0.9% NaCl I.V. kvo Norred Buffie Per ml/hr Ubaldo Garcia RN physician 9:45:45 Versed I.V. 0.5 Kalyan perez mg Ubaldo Garcia RN sedation Procedure Log Time Note 8:34:21 Informed consent obtained and on chart 8:34:39 Diagnostic Cath Status : Elective 8:35:32 Indication : COPD 8:35:37 Indication : CAD 8:36:25 Lab Result : Hemoglobin 10.1 g/dl 8:36:25 Lab Result : eGFR NONAFRICAN 7.228558 ml/min 8:36:25 Lab Result : BUN 43 mg/dl 8:36:25 Lab Result : Creatinine 8.9 mg/dl 8:36:26 Lab Result : Hematocrit 32.3 % 8:36:31 Admit Source: Other 8:36:34 Patient Height : 64 inches 8:36:39 Patient Weight : 151.99 lbs 8:36:44 Arrival Date: 02/23/2020 12:00:00 AM 8:37:08 Insurance Payor : Medicare 8:40:48 Time tracking: Regular hours (M-F 7:00 - 5:00) 8:40:53 Plan of Care:Hemodynamics will remain stable., Cardiac rhythm will remain stable., Comfort level will be maintained., Respiratory function will remain adequate., Patient/ family verbilizes understanding of procedure., Procedure tolerated without complication., Recovers from procedure without complications.. 8:41:01 Procedure Status Elective Heart Cath (OP). 8:42:52 Lab results completed and on chart. 8:42:57 Risk of Mortality: 1.9 8:43:00 Risk of blood transfusion: 7.8 8:43:04 Risk of JULIO: 19.8 8:46:19 Stress Test: no; N/A ? 9:12:48 Emile Garcia RN sent for patient. Start room use. 9:21:22 Patient received from Med II to CCL 1 Alert and oriented. Tansferred to table in Supine position. 9:21:24 Warm blankets applied, and jordan hugger turned on for patient comfort. 9:21:24 Correct patient and procedure confirmed by team. 9:21:24 ECG and BP/O2 sat monitors applied to patient. 9:29:41 Vital chart was started 9:32:35 Oxygen 3 l/min etCO2 Nasal cannula was administered by Emile Garcia RN; used for procedure; Verbal order read back and verified. 9:32:42 Plavix 300 mg P.O. was administered by Emile Garcia RN; Per physician; Verbal order read back and verified. 9:32:53 Lidocaine 2% 20ml vial added to field was administered by Kalyan Conner MD; for local anesthetic; Verbal order read back and verified. 9:32:59 Heparin Flush Bag (1000units/500ml NS) 2 bags added to field was administered by Kalyan Conner MD; used for procedure; Verbal order read back and verified. 9:33:08 0.9% NaCl kvo ml/hr I.V. was administered by Emile Garcia RN; Per physician; Verbal order read back and verified. 9:39:22 Baseline sample Acquired. 9:39:23 Full Disclosure recording started 9:39:34 H&P Date Dictated: 02/20/2020 Within 30 days and on chart.. 9:39:35 Pre-procedure instructions explained to patient. 9:39:36 Pre-op teaching completed and patient verbalized understanding. 9:39:39 Family unavailable. 9:39:40 Patient NPO since Midnight. 9:39:52 Patient allergic to Other allergyPCN, SULFA, SUDAFED 9:39:55 Is the patient allergic to Iodine/contrast media? No. 9:39:57 Was the patient premedicated? N/A 9:39:59 Is patient on blood thinner?Yes 9:40:02 ACC The patient was administered the following blood thiners within the last 24 hours: ACCPlavix 9:40:04 Patient diabetic? No. 9:40:05 If diabetic: On Metformin? N/A 9:40:07 ----Pre-sedation anethsthesia assessment.---- 9:40:11 Previous problem with sedation/anesthesia? No ? 9:40:15 Snore? Unknown 9:40:17 Sleep apnea? Unknown 9:40:18 Deviated septum? No 9:40:20 Opens mouth fully? Yes 9:40:21 Sticks out tongue? Yes 9:40:30 Airway obstruction? Yes COPD 9:40:33 Dentures? No ? 9:40:36 Modified Jamison's test Ulnar < 7 seconds 9:40:38 Patient pain scale 0/10 ?. 9:40:48 IV patent on arrival in right antecubital with 0.9% NaCl at O. 9:40:55 Right Radial & Right Groin area was prepped with chlora-prep and draped in sterile fashion 9:40:57 Alarms reviewed by R. N. 9:40:57 Sharps counted by scrub and verified by R.N. 9:41:00 Use device set Radial Dx or PCI 9:41:02 ACIST Syringe (35354) opened to sterile field. 9:41:02 Medline Cath Pack ([id number]) opened to sterile field. 9:41:03 Bag Decanter (2002S) opened to sterile field. 9:41:03 ACIST Hand Control (37681) opened to sterile field. 9:41:04 ACIST Manifold (15463) opened to sterile field. 9:41:05 Tegaderm 4 x 4 (1626W) opened to sterile field. 9:41:06 MBrace Wrist Support ([id number]) opened to sterile field. 9:41:07 EMERALD Guide Wire (345-141) opened to sterile field. 9:41:08 SHEATH 6FR RAIN (0668189) opened to sterile field. 9:41:14 --------ALL STOP TIME OUT------ 9:41:16 Final Timeout: patient, procedure, and site verified with staff and physician. All members of the team are in agreement. 9:41:18 Right Radial & Right Groin site verified by team. 9:41:21 Fire Safety Assessment: A--An alcohol-based skin anteseptic being used preoperatively., C--Open oxygen or nitrous oxide is being used., D--An ESU, laser, or fiber-optic light is being used. 9:41:25 Physical assessment completed. ASA score P 2 - A patient with mild systemic disease as per Kalyan Conner MD. 9:41:30 4) 15-29 Severley reduced kidney function. 9:41:32 Maximum allowable contrast dose (3.7 X eGFR X 0.75)19 ml. 9:41:36 Sedation plan: IV Moderate Sedation Medication:Versed, Fentanyl 9:45:45 Versed 0.5 mg I.V. was administered by Emile Garcia RN; for sedation; Verbal order read back and verified. 9:48:00 Rhythm: sinus rhythm 9:48:06 Procedure started. 9:48:12 Local anesthetic to right radial artery with Lidocaine 2% by Kalyan Conner MD.INITIAL ACCESS ONLY 9:49:23 RADIAL NO GODD PROCEDDING TO GROIN. 9:49:28 Local anesthetic to right femoral artery with Lidocaine 2% by Kalyan Conner MD.ADDITIONAL ACCESS 9:50:22 MICROPUNCTURE 4FR Cook ([id number]) opened to sterile field. 9:51:28 Access obtained with 4Fr micropunture. 9:52:07 Use device set Femoral Dx 9:52:10 SHEATH 5FR Columbia (TSP753) opened to sterile field. 9:52:14 DIAGNOSTIC Multipack 5Fr catheter set (YH9501) opened to sterile field. 9:53:36 GLIDE WIRE Super Stiff Angled 260cm (WX3330) opened to sterile field. 9:53:58 GLIDEWIRE ANGLES STIFF 260 wire advanced. 9:55:02 SHEATH 6FR ARROW 45cm (CL-76028) opened to sterile field. 9:55:17 A 6 Fr Long sheath was inserted into the Right Femoral artery 9:57:10 Zero performed for pressure channel P1 9:57:50 LV hemodynamics recorded. 9:57:51 A MULTIPACK Pigtail 5 Fr catheter was advanced over the wire and used for Procedure. 9:57:53 LV gram done using NUNEZ 9:57:56 Injector settings: Ml/sec: 12, Volume: 8, 9:58:39 EF : 60 % 9:58:42 Catheter exchanged over wire. 9:58:53 A MULTIPACK JL 4.0 5Fr catheter was advanced over the wire and used for Procedure. 9:59:39 LCA angiography performed. 9:59:52 Injector settings: Ml/sec: 2, Volume: 4, 10:01:52 Catheter exchanged over wire. 10:02:01 A MULTIPACK 3DRC 5Fr catheter was advanced over the wire and used for Procedure. 10:02:49 RCA angiography performed. 10:02:51 Injector settings: Ml/sec: 2, Volume: 4, 10:02:55 ACCDominant side:Right 10:04:38 Abdominal angiogram w/ runoff was performed. 10:05:16 Sheath upsized to a 6 Fr Short. 10:06:28 EXCHANGING 6FR LONG SHEATH FOR 6 FR SHORT SHEATH. 10:06:45 Sheath removed intact; hemostasis achieved with Exoseal to the Right Femoral artery. 10:07:20 EXOSEAL 6Fr (EX600) opened to sterile field. 10:07:35 Procedure ended.(Physican Out) 10:07:46 Fluoroscopy time 04.70 minutes. 10:07:50 Fluoroscopy dose: 334 mGy 10:07:50 Flurop Dose total: 334 10:07:56 Dose Area Product 59772 mGy/cm. 10:08:14 Contrast amount:Isovue 370 45ml. 10:08:16 Maximum allowable dose exceeded? Yes. 10:08:17 Sharps counted by scrub and verified by R.N. 10:08:34 Post-op/insertion site Right Femoral artery dressed using a 4 x 4 and Tegaderm. 10:08:40 Post right femoral artery:stable, soft, clean and dry 10:09:21 Post Procedure Pulses reassessed and unchanged 10:09:27 Post-procedure physical assessment completed. ASA score P 2 - A patient with mild systemic disease as per Kalyan Conner MD. 10:09:34 Post procedure rhythm: unchanged. 10:09:37 Estimated blood loss: 5 ml 10:09:38 Post procedure instruction explained to patient.Patient verbalizes understanding. 10:09:39 Patient needs reinforcement of post procedure teaching. 10:10:31 Procedure type changed to Cath procedure, Diagnostic procedure, LHC, C w/Coronaries, Sedation Charges, Moderate Sedation up to 15 minutes, Peripheral Cath Diagnostic Procedure, Abd/Extremity, Aortagram 10:16:09 Procedure and supply charges have been captured, reviewed, submitted and are correct. 10:16:13 Procedure Complication : No complications 10:16:16 Vital chart was stopped 10:16:29 [facility] Findings: MVD- CABG consult 10:16:31 Operative report dictated upon procedure completion. 10:16:31 See physician's report for complete and final results. 10:16:33 Report given to Med II. 10:16:37 Patient transfered to Med II with Bed. 10:16:45 Procedure ended. 10:16:45 Full Disclosure recording stopped 10:16:55 End room use (Document Last) 10:17:43 End room use (Document Last) 10:18:21 End room use (Document Last) Device Usage Item Name Manufacture Quantity Catalog Hospital Part Current Mini mal Lot# / Number Charge Number Stock Stock Serial# Code ACIST Syringe Acist 1 87170 207203 450877 811362 20 (82579) Medical Systems Inc Medline Cath Medline 1 [id number] 654846 88847 573848 5 Pack ([id number]) Bag Decanter Microtek 1 2001S 776908 64008 001562 5 (2001S) Medical Inc. ACIST Hand Acist 1 83175 059502 598360 263903 5 Control Medical (90316) Systems Inc ACIST Acist 1 07497 311377 306721 099815 5 Manifold Medical (81725) Systems Inc Tegaderm 4 x 3M 1 1626W 520136 097680 243887 5 4 (1626W) MBrace Wrist Advanced 1 140-0250-00 961023 80755 986582 5 Support Vascular (407694890) Dynamics EMERALD Guide Cardinal 1 502-455 913352 312132 952857 5 WolfGIS (502-455) SHEATH 6FR Cardinal 1 1276316 366571 7308990 507586 5 [facility] (7817235) MICROPUNCTURE Cook Medical 1 W91270 284300 678752 740958 5 4FR Cook (J44143) SHEATH 5FR Terumo 1 ETV032 763175 523810 228550 5 Columbia (YLA358) DIAGNOSTIC Cardinal 1 EF0631 612590 73439 881665 30 Multipack 5Fr Health catheter set (NU7644) GLIDE WIRE Terumo 1 RR9778 209820 285678 603067 5 Super Stiff Angled 260cm (YI4643) SHEATH 6FR Teleflex 1 CL-38553 905639 876509 638070 5 ARROW 45cm (CL-02235) MULTIPACK Cardinal 1 529433 5 Pigtail 5 Fr Health catheter MULTIPACK JL Cardinal 1 847412 5 4.0 5Fr Health catheter MULTIPACK Cardinal 1 717573 5 3DRC 5Fr Health catheter EXOSEAL 6Fr Cardinal 1 EX600 571707 354771 021827 10 (EX600) Health Signature Audit [place] Stage Time Signature Unsigned Intra-Procedure 02/23/2020 Traci Ziegler 10:17:43 AM RT(R) Intra-Procedure 02/23/2020 Emile Garcia RN 10:18:21 AM Intra-Procedure 02/23/2020 Kalyan Conner MD 10:18:55 AM [place] [id number] [place] [address]
[~2020-02-20 22:26] MED LIST: AMBIEN10 MG PO; ATIVAN1 MG PO; CATAPRES0.1 MG PO; FOSRENOL1000 MG PO; LISINOPRIL20 MG PO; LYRICA75 MG PO; NEPHRO-VITE RX1 TAB PO; OMEPRAZOLE20 M1 PO; PERCOCET 5-3251 TAB PO; ZOLOFT100 MG PO
[2020-02-20] MEDS ORDERED: LISINOPRIL40 MG PO (22:45)
[2020-02-20 22:46] LABS: HEMATOCRIT 38.1 % (42.0-54.0); HEMOGLOBIN 12.2 g/dL (13.5-17.5); LYMPHOCYTES 4.9 % (15-50); MCH 30.6 pg (26.0-34.0); MCV 95.5 fL (80.0-100.0); MEAN PLATELET VOLUME 8.2 fL (7.4-10.4); PLATELET COUNT 224 10x3/uL (130-400); RBC 3.99 10x6/uL (4.20-6.10); RDW 17.8 % (11.5-14.5); WBC 17.9 10x3/uL (4.8-10.8)
[2020-02-20] MEDS ORDERED: HYDROCODON-ACE1 EAC7 PO (22:47)
[2020-02-20] MEDS ORDERED: NORMODYNE / TR200 MG PO (22:47)
[2020-02-20] MEDS ORDERED: LIPITOR20 MG PO (22:47)
[2020-02-20] MEDS ORDERED: HYDRALAZINE HCL25 MG PO (22:48)
[2020-02-20] MEDS ORDERED: BENTYL 20 MG TA20 MG PO (22:48)
[2020-02-20] MEDS ORDERED: NORVASC5 MG PO (22:49)
[2020-02-20] MEDS ORDERED: PLAVIX75 MG PO (22:49)
[2020-02-20] MEDS ORDERED: BAYER CHEWABLE81 MG PO (22:49)
[2020-02-20] MEDS ORDERED: RENA-VITE TABL0.8 MG PO (22:50)
[2020-02-20] MEDS ORDERED: TEMAZEPAM30 MG PO (22:50)
[2020-02-20] MEDS ORDERED: FUROSEMIDE40 MG PO (22:51)
[2020-02-20] MEDS ORDERED: GABAPENTIN100 MG PO (22:51)
[2020-02-20 22:55] LABS: APTT 33.2 SECONDS (22.8-39.4); INR 1.17 (0.85-1.17); PROTIME 14.9 SECONDS (11.6-15.0)
[2020-02-20 22:56] LABS: D-DIMER-QUANTITATIVE 1.22 ug/mLFEU (0.20-0.54)
[2020-02-20 23:06] LABS: ANION GAP 28.3 mmol/L (8-16); CALCIUM 8.6 mg/dL (8.5-10.1); CARBON DIOXIDE 24.9 mmol/L (21.0-32.0); CREATININE - SERUM 10.6 mg/dL (0.6-1.3); POTASSIUM - SERUM 5.2 mmol/L (3.5-5.1)
[2020-02-20 23:08] VITALS: BP 187/96
[2020-02-20 23:18] LABS: ALBUMIN 3.4 g/dL (3.4-5.0); BILIRUBIN - TOTAL 0.49 mg/dL (0.2-1.3); C-REACTIVE PROTEIN 12.6 mg/dL (0.0-0.9); MAGNESIUM - SERUM 1.7 mg/dL (1.8-2.4); PROTEIN - SERUM 8.2 g/dL (6.4-8.2)
[2020-02-20 23:25] LABS: TROPONIN-I 0.237 ng/mL (0.000-0.060)
[2020-02-21 02:18] VITALS: BP 155/84
--- NOTE | 2020-02-21 03:54 | NUR ---
STANDBY ASSIST TO BSC, NO SOB NOTED. CTM.
[2020-02-21 04:00] VITALS: BP 175/89
--- NOTE | 2020-02-21 04:40 | NUR ---
DR. GOODE INTO SEE/ASSESS PATIENT. STATES WILL CALL CARDIOLOGY PERSONALLY FOR CONSULT.
[2020-02-21 05:02] VITALS: BP 193/101; BMI 31.4
[2020-02-21 06:30] LABS: HEMATOCRIT 33.9 % (42.0-54.0); HEMOGLOBIN 10.9 g/dL (13.5-17.5); LYMPHOCYTES 8.4 % (15-50); MCH 30.6 pg (26.0-34.0); MCHC 32.2 g/dL (31.0-37.0); MCV 95.2 fL (80.0-100.0); MEAN PLATELET VOLUME 8.7 fL (7.4-10.4); NEUTROPHILS 86.1 % (40-80); PLATELET COUNT 218 10x3/uL (130-400); RBC 3.56 10x6/uL (4.20-6.10); RDW 18.1 % (11.5-14.5); WBC 15.3 10x3/uL (4.8-10.8)
[2020-02-21 06:58] LABS: ALBUMIN 2.9 g/dL (3.4-5.0); ANION GAP 29.6 mmol/L (8-16); BILIRUBIN - TOTAL 0.4 mg/dL (0.2-1.3); CALCIUM 8.4 mg/dL (8.5-10.1); CARBON DIOXIDE 25.2 mmol/L (21.0-32.0); CREATININE - SERUM 10.8 mg/dL (0.6-1.3); POTASSIUM - SERUM 5.8 mmol/L (3.5-5.1); PROTEIN - SERUM 6.8 g/dL (6.4-8.2)
[2020-02-21 07:48] LABS: TROPONIN-I 5.549 ng/mL (0.000-0.060)
[2020-02-21 07:49] LABS: PHOSPHOROUS 11.8 mg/dL (2.5-4.9)
[2020-02-21 09:13] VITALS: BP 173/90
[2020-02-21 12:39] LABS: % SATURATION 14 % (15-55); IRON 23 ug/dl (35-150); TOTAL IRON BIND CAPACITY 162 ug/dl (260-445); UNSAT IRON BIND CAPACITY 139 ug/dl (150-375)
--- NOTE | 2020-02-21 12:52 | NUR ---
I have reviewed this patient and I concur with the Shift Assessment completed by the Licensed Practical Nurse today this shift.
[2020-02-21 13:05] LABS: FERRITIN 757 ng/mL (3-244); LDH 267 U/L (85-227)
[2020-02-21 13:12] VITALS: BP 173/90
[2020-02-21 14:00] VITALS: BMI 26.1
--- NOTE | 2020-02-21 15:02 | NUR ---
SPOKE WITH DR. BEARD AND WENT OVER PT'S HOME MED LIST AND SHE STATES TO RESTART ALL MEDS EXCEPT LISIONOPRIL. I VERBALIZED UNDERSTANDING.
--- NOTE | 2020-02-21 15:45 | NUR ---
SCD'S PLACED ON PT'S LEGS BILATERALLY.
--- NOTE | 2020-02-21 15:56 | NUR ---
PT TAKEN TO DIALYSIS VIA BED.
--- NOTE | 2020-02-21 16:34 | NUR ---
UNABLE TO COLLECT URINE. PT ANURIC. UNABLE TO COLLECT VALERIA. PT HAS NOT HAD A BM.
--- NOTE | 2020-02-21 17:40 | NUR ---
DIALYSIS CALLED AND STATES PT'S BP IS 232/93 IF PT HAS PRN MED FOR BP. ASKED VERONICA ALBA IF SHE WANTS HYDRALAZINE 10MG IV OR CLONIDINE 0.1MG PO. SHE STATES TO BRING CLONODINE. WENT TO DIALYSIS AND GAVE PT CLONODINE 0.1MG PO. THIS NURSE STATED TO VERONICA ALBA TO LET ME KNOW IF BP DOESN'T CHANGE AND PT'S NEEDS HYDRALAZINE IV. SHE VERBALIZED UNDERSTANDING AND STATED SHE WOULD.
--- NOTE | 2020-02-21 19:16 | NUR ---
PATIENT IN DIALYSIS, WHITE BOARD UPDATED.
[2020-02-21 20:00] VITALS: BP 190/62
[2020-02-22] VITALS: BP 141/50
[2020-02-22 04:00] VITALS: BP 165/82
[2020-02-22 07:11] LABS: BASOPHILS 0.2 % (0-2); EOSINOPHILS 0.8 % (0-7); HEMATOCRIT 32.3 % (42.0-54.0); HEMOGLOBIN 10.1 g/dL (13.5-17.5); IMMATURE GRANULOCYTES 0.3 % (0-5); LYMPHOCYTES 12.2 % (15-50); MCH 30.1 pg (26.0-34.0); MCHC 31.3 g/dL (31.0-37.0); MCV 96.1 fL (80.0-100.0); MEAN PLATELET VOLUME 9.4 fL (7.4-10.4); MONOCYTES 5.6 % (2-11); NEUTROPHILS 80.9 % (40-80); RBC 3.36 10x6/uL (4.20-6.10); RDW 17.5 % (11.5-14.5)
[2020-02-22 07:18] LABS: PLATELET COUNT 164 10x3/uL (130-400); WBC 10.8 10x3/uL (4.8-10.8)
[2020-02-22 07:32] LABS: ALBUMIN 2.7 g/dL (3.4-5.0); ANION GAP 21.6 mmol/L (8-16); BILIRUBIN - TOTAL 0.34 mg/dL (0.2-1.3); CALCIUM 9.3 mg/dL (8.5-10.1); CARBON DIOXIDE 25.5 mmol/L (21.0-32.0); CREATININE - SERUM 8.9 mg/dL (0.6-1.3); POTASSIUM - SERUM 5.1 mmol/L (3.5-5.1); PROTEIN - SERUM 7.4 g/dL (6.4-8.2)
--- NOTE | 2020-02-22 07:54 | NUR ---
PT SITTING ON SIDE O FBED. HEAD DOWN ON BEDSIDE TABLE. RR EVEN AND UNLABORED ON 5L HF. DENIES NEEDS OR PAIN AT THIS TIME. CALL LIGHT WITHIN REACH. BED IN LOWEST POSITION. WILL CONTINUE TO MONITOR.
[2020-02-22 08:39] VITALS: BP 145/77
--- NOTE | 2020-02-22 09:37 | NUR ---
I have reviewed this patient and I concur with the Shift Assessment completed by the Licensed Practical Nurse today this shift.
--- NOTE | 2020-02-22 11:31 | NUR ---
NO UPDRAFT GIVEN PT IN DIALYSIS
--- NOTE | 2020-02-22 14:02 | EC ---
PATIENT:GERALDINE HOWELL DATE OF SERVICE: 02/20/20 SEX: M MEDICAL RECORD: [id number] DATE OF : 67 LOCATION:D.M2 D.213 AGE OF PATIENT: 54 ADMISSION DATE: 02/20/20 REFERRING PHYSICIAN: INTERPRETING PHYSICIAN: MAMADOU GOODRICH MD ECHOCARDIOGRAM REPORT ECHO CHARGES 4 ECHO COMPLETE Date: 02/21/20 CLINICAL DIAGNOSIS: CHF, PULMONARY EDEMA ECHOCARDIOGRAPHIC MEASUREMENTS (adult normal given) AC root (d.<3.7cm) 3.2 cm LV Septum d (<1.2 cm> 1.0 cm Valve Excursion 1.8 cm LV Septum (systole) 1.4 cm Left Atria (s.<4.0cm> 5.1 cm LVPW d(<1.2cm) 0.6 cm RV (d.<2.3cm) 3.3 cm LVPW (sytole) 0.8 cm LV diastole(<5.6CM) 5.7 cm MV E-F(>70mm/sec) cm LV systole 4.4 cm LVOT Diameter 1.7 cm MV exc.(>10mm) cm Est.ejection fraction (50-75%) % DOPPLER: LVIT cm/sec A 144 cm/sec E 185 cm/sec LA cm/sec RVSP 29.3 mmHg LVOT 105 cm/sec AOP1/2T m/s Asc. Ao 166 cm/sec RVOT 86 cm/sec RA cm/sec PA 90 cm/sec AV Gradient Peak 11.1 mmHg AV Mean 4.9 mmHg AV Area 1.4 cm MV Gradient Peak 18.9 mmHg MV Mean 9.1 mmHg MV Area cm COMMENTS: Tamale Machine Feeder: Vipin JAFFE Customer Support Manager: Radha Goodrich TAPE# PACS Pericardial Effusion N DATE OF SERVICE: 02/21/2020 PROCEDURE: Transthoracic echocardiograph. FINDINGS: Left ventricle shows wall motion abnormalities with inferior posterior hypokinesis. There is fairly enlarged papillary muscle structure which may be normal for the patient. Overall, ejection fraction is in the 40% to 45% range. There is mild mitral regurgitation. Left atrium is severely dilated. ECHOCARDIOGRAM REPORT [id number] GERALDINE HOWELL Tricuspid valve has mild tricuspid regurgitation. The RVSP is 29 mmHg. Right ventricle is mildly dilated. Right atrium is mildly dilated. Pericardium and pulmonary valve appeared to be normal. TRANSINT:[id number] Voice Confirmation ID: [id number] DOCUMENT ID: [id number] MAMADOU GOODRICH MD at 1402 CC: [id number] DICTATION DATE: 02/21/20 1639 [employer] SALES CONSULTANT: 02/22/20 0249 ADM IN [facility] [address] [place] [address]
[2020-02-22 15:29] LABS: ANION GAP 22.4 mmol/L (8-16); CALCIUM 9.2 mg/dL (8.5-10.1); CARBON DIOXIDE 26.6 mmol/L (21.0-32.0); CHOL - HDL RATIO 2.2 ratio (2.3-4.9); CREATININE - SERUM 9.2 mg/dL (0.6-1.3); LDL-HDL RATIO 0.8 ratio (1.5-3.5)
[2020-02-22 16:38] VITALS: BP 185/52
--- NOTE | 2020-02-22 19:56 | NUR ---
PT LYING IN BED AWAKE ALERT AND ORIENTED. N OSIGNS OF DISTRESS NOTED. PT HAS NO COMPLAINTS AT THIS TIME. CALL LIGHT AND OTHER PERSONAL ITEMS WITH IN REACH. WILL CONTINUE TO MONITOR
[2020-02-22 20:00] VITALS: BP 183/79
[2020-02-23] VITALS (15 sets, daily range): BP systolic 149–206; BP diastolic 57–87
--- NOTE | 2020-02-23 00:50 | NUR ---
PT PULLED IV OUT WITH END STILL INTACT WHILE SLEEPING. NO SIGNS OF DISTRESS NOTED. WILL TRY TO RESITE. CONSENT FOR PROCEDURE IS SIGNED AND ON CHART. CALL LIGHT AND OTHER PERSONAL ITEMS WITH IN REACH. WILL CONTINUE TO MONITOR
--- NOTE | 2020-02-23 01:10 | NUR ---
I have reviewed this patient and I concur with the Shift Assessment completed by the Licensed Practical Nurse today this shift.
[2020-02-23 07:22] LABS: ALBUMIN 2.7 g/dL (3.4-5.0); ANION GAP 22.5 mmol/L (8-16); BILIRUBIN - TOTAL 0.44 mg/dL (0.2-1.3); CALCIUM 9.5 mg/dL (8.5-10.1); CARBON DIOXIDE 24.4 mmol/L (21.0-32.0); CREATININE - SERUM 10.4 mg/dL (0.6-1.3); POTASSIUM - SERUM 4.9 mmol/L (3.5-5.1); PROTEIN - SERUM 7.3 g/dL (6.4-8.2)
[2020-02-23 07:43] LABS: BASOPHILS 0.2 % (0-2); EOSINOPHILS 2.9 % (0-7); HEMATOCRIT 30.7 % (42.0-54.0); HEMOGLOBIN 9.8 g/dL (13.5-17.5); IMMATURE GRANULOCYTES 0.3 % (0-5); LYMPHOCYTES 14.6 % (15-50); MCH 30.7 pg (26.0-34.0); MCHC 31.9 g/dL (31.0-37.0); MCV 96.2 fL (80.0-100.0); MEAN PLATELET VOLUME 9.2 fL (7.4-10.4); MONOCYTES 7.6 % (2-11); NEUTROPHILS 74.4 % (40-80); PLATELET COUNT 148 10x3/uL (130-400); RBC 3.19 10x6/uL (4.20-6.10); RDW 16.8 % (11.5-14.5); WBC 10.9 10x3/uL (4.8-10.8)
--- NOTE | 2020-02-23 08:12 | NUR ---
RESTING IN BED, NO DISTRESS NOTED, SL IN PLACE, NPO FOR CATH, CONT TO MONITOR
--- NOTE | 2020-02-23 09:30 | NUR ---
TAKEN TO PRINTED CIRCUIT BOARDS PINNER PER BED,
--- NOTE | 2020-02-23 11:30 | NUR ---
refused dialysis, states my back hurts and i dont feel like it
[2020-02-23 11:57] LABS: PLT FUNCT.(P2Y12) PLAVIX 330 PRU (194-418)
--- NOTE | 2020-02-23 13:47 | MORECARE ---
CASE MANAGEMENT DISCHARGE SUMMARY PATIENT: GERALDINE HOWELL UNIT: [id number] ADM DATE: 02/20/20 AGE: 54 : 67 SEX: M ROOM/BED: D.6223 AUTHOR: DARIUSDOC PHYSICIAN: REFERRING PHYSICIAN: NAVEED MIX MD DATE OF SERVICE: 02/23/20 Discharge Plan Patient Name: GERALDINE HOWELL Facility: [facility]:[place] : 1965 Planned Disposition: Anticipated Discharge Date: Discharge Date: Expected LOS: Initial Reviewer: [email or web address] Initial Review Date: 02/21/2020 Generated: 02/23/20 2:46 pm Comments DCP- Discharge Planning Updated by [email or web address]: Tiffanie Houston on 02/23/20 12:[address] Patient Name: GERALDINE HOWELL Admission Status: ER Accout number: [id number] Admission Date: 02-20-2020 : 1965 Admission Diagnosis:NON-ST ELEVATION (NSTEMI) MYOCARDIAL INFARCTION Attending: NAVEED MIX Current LOS: 3 Anticipated DC Date: Planned Disposition: Primary Insurance: MEDICARE A & B Discharge Planning Comments: CM met with patient to complete initial dc planning assessment. CM educated patient on the CM role and verbal consent given by patient to complete assessment. CM verified patient's address, phone number, and emergency contact phone numbers. Patient lives at home with his mother. 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 At discharge patient plans to return home and feels this is a safe discharge. 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 HALLIE signed for [employer] [facility] for [facility], IP rehab at [facility], and [facility]. Pt has a can, walker, shower chair at home. Pt drives to dialysis [facility] in [place]. Patient denies other known discharge needs at this time. Transportation provider at discharge will be . CM will continue to follow and will assist as needed with dc plans/needs. Biological Science Aide: Tiffanie Houston MSN,RN,CM DCPIA - Discharge Planning Initial Assessment Updated by [email or web address]: Tiffanie Houston on 02/23/20 1:41 pm * Is the patient Alert and Oriented? Yes * How many steps to enter\exit or inside your home? 4/0 * PCP Juan * [facility] in [place] * Preadmission Environment Home with Family * ADLs Independent * Equipment Cane Grab Bars Rolling Walker Shower Chair Walker * List name and contact numbers for known caregivers / representatives who currently or will assist patient after discharge: Annalee Steiner [phone] * Verbal permission to speak to the caregivers and representatives has been obtained from the patient. Yes * Community resources currently utilized None * Additional services required to return to the preadmission environment? Yes * Can the patient safely return to the preadmission environment? Yes * Has this patient been hospitalized within the prior 30 days at any hospital? No Patient Name: GERALDINE HOWELL Page 11601 at 1347 All edits/amendments must be made on the electronic document DICTATION DATE: 02/23/20 1346 PNEUMATIC TOOL OPERATOR: BERYL 02/23/20 1346 RPT#: [id number] DC DATE: STATUS: ADM IN [facility] [address] [place] [address] END OF REPORT
--- NOTE | 2020-02-23 14:20 | NUR ---
Nutrition Follow-up: Cath this AM; noted CTS recs CABG. Diet: Renal/AHA PO intake: 100% x 3 yesterday Wt: 156# (02/22); 152# (02/19 - stated) Last recorded BM: 02/20 Labs noted: K+ 4.9, Alb 2.7 Meds noted: Lasix, Protonix, Nephrovite -Encourage PO intake and honor food preferences within diet restrictions. -Monitor wt. -RD following.
--- NOTE | 2020-02-23 19:32 | NUR ---
PT RESTING IIN BED QUIETLY WITH EYES CLOSED. EASILY AWAKEN WITH VOICE STIMULATION. NO SIGNS OR SYMPTOMS OF DISTRESS NOTED. RESPIRATIONS EVEN AND UNLABORED. PT HAS NO COMPLAINTS AT THIS TIME. CALL LIGHT AND OTHER PERSONAL ITEMS WITH IN REACH. BED IS IN ITS LOWEST POSITON. SIDE RAILSx2. WILL CONTINUE TO MONITOR
[2020-02-24] VITALS (35 sets, daily range): BP systolic 125–221; BP diastolic 58–87; Ht 162.6 cm; Wt 79.2 kg
[2020-02-24 05:28] LABS: BASOPHILS 0.3 % (0-2); EOSINOPHILS 2.5 % (0-7); HEMATOCRIT 29.4 % (42.0-54.0); HEMOGLOBIN 9.3 g/dL (13.5-17.5); IMMATURE GRANULOCYTES 0.3 % (0-5); LYMPHOCYTES 10.8 % (15-50); MCHC 31.6 g/dL (31.0-37.0); MCV 94.8 fL (80.0-100.0); MEAN PLATELET VOLUME 9.6 fL (7.4-10.4); MONOCYTES 7.2 % (2-11); NEUTROPHILS 78.9 % (40-80); PLATELET COUNT 176 10x3/uL (130-400); RDW 16.8 % (11.5-14.5)
[2020-02-24 05:37] LABS: INR 1.2 (0.85-1.17); PROTIME 15.2 SECONDS (11.6-15.0)
[2020-02-24 05:38] LABS: APTT 49.6 SECONDS (22.8-39.4)
[2020-02-24 06:10] LABS: ALBUMIN 2.7 g/dL (3.4-5.0); ANION GAP 23.6 mmol/L (8-16); BILIRUBIN - TOTAL 0.48 mg/dL (0.2-1.3); CALCIUM 9.3 mg/dL (8.5-10.1); CARBON DIOXIDE 23.9 mmol/L (21.0-32.0); CREATININE - SERUM 12.3 mg/dL (0.6-1.3); POTASSIUM - SERUM 5.5 mmol/L (3.5-5.1); PROTEIN - SERUM 6.8 g/dL (6.4-8.2); T4 THYROXIN - FREE 0.66 ng/dL (0.76-1.46); THYROID STIMULATING HORMONE 1.49 uIU/mL (0.36-3.74); URIC ACID 6.5 mg/dL (2.6-7.2)
[2020-02-24 06:43] LABS: PHOSPHOROUS 10.9 mg/dL (2.5-4.9)
--- NOTE | 2020-02-24 10:10 | NUR ---
LAB CALLED TO [facility] FOR RENAL. WILL HAVE DIALYSIS THIS AFTERNOON.
--- NOTE | 2020-02-24 11:45 | NUR ---
PT HAS HX OF PVD. BOTH LOWER LEGS ARE DISCOLORED AND HAIRLESS. ON THE LEFT GREAT TOE IS A WOUND MEASURING 0.5CM X 0.5CM. IT IS COVERED WITH SOFT SCAB AND NO DRAINAGE OR ODOR IS NOTED. IN BETWEEN #3 & #4 TOES IS AN OPEN AREA THAT IS SLIGHTLY MACERATED. HE IS UNSURE HOW EITHER OF THESE WOUNDS STARTED, BUT SAYS HE HAS HAD THEM FOR "MONTHS". LEFT #2 TOE HAS BEEN AMPUTATED AND IS COMPLETELY HEALED. RECOMMENDED CALCIUM ALGINATE BETWEEN #3 AND #4 TOES TO HELP IT DRY AND COVERING WOUND ON LEFT GREAT TOE FOR PROTECTION. WOUND CARE WILL CONTINUE MONITORING.
--- NOTE | 2020-02-24 15:40 | NUR ---
PT ARRIVED TO UNIT IN WHEELCHAIR ACCOMPANIED BY DIALYSIS STAFF. TRANSFERRED OVER TO CVICU BED UNDER OWN POWER. HOOKED UP TO MONITOR. BP SYSTOLIC ELEVATED IN 200'S. NO COMPLAINTS NOTED AT THIS TIME. WILL CONTINUE TO MONITOR
--- NOTE | 2020-02-24 15:55 | NUR ---
CALLED DR GOODRICH. UPDATED ON PT VITALS. ORDER RECEIVED TO GIVE 5MG LOPRESSOR IV X1. WILL CONTINUE TO MONITOR
--- NOTE | 2020-02-24 18:30 | NUR ---
SPOKE WITH DR GREENBERG CONCERNING PT BP. UPDATE GIVEN. NEW ORDERS RECEIVED TO START PT ON NITRO DRIP AND GIVE 10MG LOPRESSOR IV PUSH X1. DR FLOOD AT BEDSIDE. UPDATE GIVEN. NO NEW ORDERS FROM DR FLOOD. WILL CONTINUE TO MONITOR
--- NOTE | 2020-02-24 19:00 | NUR ---
REPORT RECEIVED. RECEIVED PATIENT IN BED, AWAKE AND ALERT. ORIENTED X 4. ASSESSMENT COMPLETED PER FLOW SHEET WITH NO ACUTE DISTRESS OBSERVED. CONTINUES HYPERTENSIVE WITH IV NITRO GTT TITRATED TO EFFECT. MONITORS CONNECTED TO PATIENT WITH ALARMS SET. CALL LIGHT IN REACH AND ABLE TO UTILIZE TO MAKE NEEDS KNOWN. WILL CONTINUE CURRENT POC
--- NOTE | 2020-02-24 21:00 | NUR ---
AWAKE AND ALERT. PM MEDS TAKEN WITHOUT DIFF. CALL LIGHT IN REACH
--- NOTE | 2020-02-24 23:00 | NUR ---
RESTING WITH EYES CLOSED, EASILY ROUSED AND ALERT. REASSESSMENT COMPLETED PER FLOW SHEET WITH NO ACUTE DISTRESS OBSERVED. VSS. CALL LIGHT IN REACH
[2020-02-25] VITALS (66 sets, daily range): BP systolic 113–186; BP diastolic 44–82
--- NOTE | 2020-02-25 03:00 | NUR ---
REASSESSMENT COMPLETED PER FLOW SHEET WITH NO ACUTE DISTRESS OBSERVED. VSS. CALL LIGHT IN REACH
--- NOTE | 2020-02-25 05:00 | NUR ---
AWAKE AND ALERT. CHG BATH GIVEN AND CLIPPED FOR OR THIS AM. JOHNNY WELL. CALL LIGHT IN REACH
[2020-02-25 05:50] LABS: BASOPHILS 0.3 % (0-2); EOSINOPHILS 3.6 % (0-7); HEMATOCRIT 28.5 % (42.0-54.0); IMMATURE GRANULOCYTES 0.4 % (0-5); LYMPHOCYTES 14.4 % (15-50); MCH 30.1 pg (26.0-34.0); MCHC 31.6 g/dL (31.0-37.0); MCV 95.3 fL (80.0-100.0); MEAN PLATELET VOLUME 9.2 fL (7.4-10.4); MONOCYTES 8.3 % (2-11); PLATELET COUNT 174 10x3/uL (130-400); RBC 2.99 10x6/uL (4.20-6.10); RDW 16.6 % (11.5-14.5)
[2020-02-25 05:51] LABS: WBC 7.4 10x3/uL (4.8-10.8)
[2020-02-25 05:52] LABS: ALBUMIN 2.6 g/dL (3.4-5.0); BILIRUBIN - TOTAL 0.52 mg/dL (0.2-1.3); CARBON DIOXIDE 22.2 mmol/L (21.0-32.0); CREATININE - SERUM 9.5 mg/dL (0.6-1.3); POTASSIUM - SERUM 5.2 mmol/L (3.5-5.1); PROTEIN - SERUM 7.2 g/dL (6.4-8.2)
--- NOTE | 2020-02-25 06:30 | NUR ---
PT TO OR VIA BED. ACCOMPANIED BY OR STAFF
--- NOTE | 2020-02-25 11:21 | NUR ---
Nutrition Follow-up: CABG today. HD yesterday. Wt: 168.6# (02/24); 156# (02/22) Last recorded BM: 02/20 Labs noted: Na 133, K+ 5.2, Alb 2.6 Meds noted: Lasix, Protonix, Nephrovite -Rec ADAT to renal when medically feasible following surgery. -Monitor wt. -RD following.
--- NOTE | 2020-02-25 14:45 | NUR ---
REC'D FROM OR VIA BED ACCOMPANIED BY OR TEAM. SEDATED. PLACED ON VENT AND MONITOR. VITALS OBTAINED.
--- NOTE | 2020-02-25 19:00 | NUR ---
REPORT RECEIVED. RECEIVED PATIENT IN BED, SEDATED/INTUBATED. ETT INTACT/SECURE/PATENT CONNECTED TO MECHANICAL VENT AT ORDERED SETTINGS. MEDIASTINAL CHEST TUBES INTACT/SECURE/PATENT DRAINING SMALL AMOUNT OF BLOODY DRAINAGE INTO COLLECTION CHAMBERS. CT TO 20CM WALL SUCTION WITH NO AIR LEAK OBSERVED. ASSESSMENT COMPLETED PER FLOW SHEET WITH NO ACUTE DISTRESS OBSERVED. MONITORS CONNECTED TO PAITENT WITH ALARMS SET.VSS.
--- NOTE | 2020-02-25 21:00 | NUR ---
SEDATED/INTUBATED. VSS.
--- NOTE | 2020-02-25 23:00 | NUR ---
REASSESSMENT COMPLETED PER FLOW SHEET WITH NO ACUTE DISTRESS OBSERVED. VSS. SEDATED/INTUBATED. CONTINUE CURRENT POC
[2020-02-26] VITALS (95 sets, daily range): BP systolic 114–149; BP diastolic 43–93
--- NOTE | 2020-02-26 01:00 | NUR ---
SEDATED/INTUBATED. VSS. CONT CURRENT POC
--- NOTE | 2020-02-26 03:00 | NUR ---
SEDATED/INTUBATED. REASSESSMENT COMPLETED PER FLOW SHEET WITH NO ACUTE DISTRESS OBSERVED. VSS.
--- NOTE | 2020-02-26 05:00 | NUR ---
SEDATED/INTUBATED. ORAL CARE GIVEN. CHG BATH, LINEN CHANGE, AND DRSG CHANGE PERFORMED. TURNED AND POSITIONED FOR COMFORT. JOHNNY WELL. VSS
[2020-02-26 05:07] LABS: HEMATOCRIT 25.9 % (42.0-54.0); HEMOGLOBIN 8.3 g/dL (13.5-17.5); MCH 30.1 pg (26.0-34.0); MCV 93.8 fL (80.0-100.0); MEAN PLATELET VOLUME 9.1 fL (7.4-10.4); RBC 2.76 10x6/uL (4.20-6.10); RDW 18.1 % (11.5-14.5)
[2020-02-26 05:08] LABS: WBC 12.6 10x3/uL (4.8-10.8)
[2020-02-26 05:31] LABS: ALBUMIN 2.6 g/dL (3.4-5.0); ANION GAP 22.5 mmol/L (8-16); BILIRUBIN - TOTAL 0.6 mg/dL (0.2-1.3); CALCIUM 9.5 mg/dL (8.5-10.1); CARBON DIOXIDE 23.7 mmol/L (21.0-32.0); CREATININE - SERUM 10.1 mg/dL (0.6-1.3); POTASSIUM - SERUM 6.2 mmol/L (3.5-5.1); PROTEIN - SERUM 6.3 g/dL (6.4-8.2)
--- NOTE | 2020-02-26 06:10 | NUR ---
INFORMED DR. GREENBERG OF SERUM POTASSIUM 6.2. NO NEW ORDERS
--- NOTE | 2020-02-26 06:18 | NUR ---
TRANSIT BUS DRIVER MD FOR DR. KISHA GARIBAY
--- NOTE | 2020-02-26 06:48 | NUR ---
ARISTIDES ERIC IN TO SEE PATIENT. INFORMED OF POTASSIUM 6.2.
--- NOTE | 2020-02-26 08:29 | NUR ---
0700 PT RECIEVED SEDATED ON VENT ETT SECURED, R IJ CVL DRESSING CDI SWAM HARRY CATHETER LOCKED, APPROX 50CM, SEE IV FLOWSHEET FOR DETAILS, MIDSTERNAL AND SUBSTERNAL DRESSINGS CDI, SUBSTERNAL DRESSING CHANGED BY EPIC PROFESSIONAL, CTX3 WITH 2 Y'D TOGETHER AND ONE SINGLE TO 20CM SUCTION NO AIR LEAK BLOODY DRAINAGE, TIFFANIE DRAIN COMPRESSED, TPM WIRES ATTACHED AND TPM OFF, JORGENSEN CATHETER IN PLACE NO URINE OUTPUT, R BRACHIAL A LINE ZEROED, GOOD WAVEFORM, LUE FISTULA THRILL AND BRUIT PRESENT, TEDS/SCDS IN PLACE, WOUNDS TO L FOOT PRESENT 0800 PTS SISTER CALLED FOR UPDATE [address] GREENBERG, ORDERS TO DC AMIO IV AND PO, KEEP SBP<150, UPDATED ON ABGS, CALLED [facility]NAL TO ASK WHEN DIALYSIS WAS AND ARISTIDES ERIC STATED SHE HAD TOLD THEM TO DO PT FIRST AND THAT SHOULD BE ANY TIME NOW, DR GREENBERG NOTIFIED, STATED TO WEAN VENT AFTER DIALYSIS. RT AWARE.
[2020-02-26 09:13] LABS: BASOPHILS 0.3 % (0-2); EOSINOPHILS 0.5 % (0-7); HEMATOCRIT 25.9 % (42.0-54.0); HEMOGLOBIN 8.3 g/dL (13.5-17.5); IMMATURE GRANULOCYTES 0.4 % (0-5); LYMPHOCYTES 7.1 % (15-50); MCH 29.9 pg (26.0-34.0); MCV 93.2 fL (80.0-100.0); MEAN PLATELET VOLUME 9.1 fL (7.4-10.4); MONOCYTES 8.3 % (2-11); NEUTROPHILS 83.4 % (40-80); PLATELET COUNT 207 10x3/uL (130-400); RBC 2.78 10x6/uL (4.20-6.10)
[2020-02-26 09:31] LABS: ALBUMIN 2.6 g/dL (3.4-5.0); ANION GAP 21.8 mmol/L (8-16); BILIRUBIN - TOTAL 0.62 mg/dL (0.2-1.3); CALCIUM 9.5 mg/dL (8.5-10.1); CARBON DIOXIDE 24.5 mmol/L (21.0-32.0); CREATININE - SERUM 10.4 mg/dL (0.6-1.3); PROTEIN - SERUM 6.3 g/dL (6.4-8.2)
[2020-02-26 09:33] LABS: POTASSIUM - SERUM 6.3 mmol/L (3.5-5.1)
--- NOTE | 2020-02-26 09:44 | NUR ---
DIALYSIS NURSE IN ROOM
--- NOTE | 2020-02-26 10:06 | NUR ---
WILL GIVE ROCEPHIN AFTER DIALYSIS
--- NOTE | 2020-02-26 11:44 | NUR ---
DR GREENBERG IN ROOM, NEW ORDERS TO LOWER DOPAMINE TO 1MCG/KG/MIN, NO NEW ORDERS
--- NOTE | 2020-02-26 11:45 | OP ---
PATIENT NAME: GERALDINE HOWELL MEDICAL RECORD: [id number] :67 LOCATION:[id number] ADMISSION DATE:02/20/20 SURGEON: ZACHARY GREENBERG MD DATE OF OPERATION: 02/25/2020 SURGEON: Zachary Greenberg MD DOUGHNUT MACHINE OPERATOR: Stephania Thorne MD PROCEDURE PERFORMED: 1. Coronary artery bypass graft times 1 (left internal mammary to LAD utilizing beating heart technique). 2. Endoscopic saphenous vein harvest. 3. Right common femoral artery exposure. ANESTHESIA: General endotracheal anesthesia. ESTIMATED BLOOD LOSS: Total cardiopulmonary bypass with Cell Saver, 2 packed red blood cells, 2 FFP, and 3 platelets. PREOPERATIVE DIAGNOSIS: Myocardial infarction, coronary artery disease, chronic kidney failure with dialysis, anticoagulation with Plavix, and severe peripheral vascular disease. COMPLICATIONS: Coagulopathy. CONDITION: Critical. DISPOSITION: CV ICU. OPERATIVE FINDINGS: 1. Transesophageal echocardiography revealed 40-45% ejection fraction, 1+ mitral regurgitation and aortic insufficiency. 2. Good quality greater saphenous vein harvested endoscopically. 3. Good quality left internal mammary artery. 4. Previous pericarditis with dense intrapericardial adhesions. 5. Severely calcified ascending aorta. The right common femoral was exposed for cannulation, but also had severe disease. Clamping of the ascending aorta was deemed unwise due to the calcification, but one soft, relatively calcium free area in the mid ascending aorta was used for cannulation and the patient was placed on cardiopulmonary bypass to allow dissection of the heart from the severe intrapericardial adhesions. 6. The LAD was 4-5 mm in the intraepicardial tissue and had to be dissected out from where it was calcified in the proximal to mid vessel all the way down to the distal utilizing the off pump system. The softest site on the artery was used for the anastomosis. A 2 mm probe passed proximally. A 1.5 mm probe passed distally and pumped assisted beating heart anastomosis was performed. 7. The PDA was not palpable and dissection in the inferior wall of the heart revealed no vessel for coronary artery bypass graft. 8. Coagulopathy after separation from cardiopulmonary bypass requiring platelets and FFP. Blood was noted to be clotting prior to closing the chest and after platelet of FFP transfusions. Good Doppler signal in the internal mammary prior to closing the chest. 9. Atrial paced due to bradycardia. OPERATIVE REPORT [id number] GERALDINE HOWELL OPERATIVE INDICATION: Severe left main coronary artery disease with acute coronary syndrome. DESCRIPTION OF PROCEDURE: The patient was brought to the operating suite. General anesthesia was obtained, the patient was prepped and draped. The greater saphenous vein harvested endoscopically from the right lower extremity. Side branches were divided with electrocautery. Vessel was removed. Side branches were tied. Thin sites were oversewn. Later, the leg was closed in 2 layers. Median sternotomy incision was made connecting with the old pericardial window incision. Subcutaneous tissue was divided with electrocautery. Sternum was divided with a saw. Hemostasis along the edge of the sternum was performed. Left hemisternum was elevated. Left pleural cavity was entered. Left internal mammary artery and veins were taken down as a pedicle graft. Sternal retractor was placed. The prepericardial fat was opened and the large innominate vein was dissected out to ensure no tension. The pericardium was opened over the aorta and with relative ease was dissected off the ascending aorta; however the aorta was noted to be near circumferentially calcified for the distal third and some calcium in the right lateral wall extending down below the midpoint. The right atrium was dissected out, but attempts to dissect on the diaphragmatic surface or even across the anterior portion of the right ventricle to the LAD, which was shifted significantly to the left and was palpable through the left pleural space was unsuccessful due to hypotension. Due to the ascending aortic calcification, exposure of the right common femoral artery was made with a cutdown but the vessel had severe disease and it was felt that likely would require an endarterectomy and patch so the softest spot on the mid ascending aorta was identified. Heparin was given. The aorta was cannulated. Dual stage venous cannula was inserted and after activated clotting time was appropriately elevated, the patient was placed on cardiopulmonary bypass to decompress the heart. The remainder of the right atrium inferior cava diaphragmatic surface and the left side of the heart were dissected free. The heart was elevated on a laparotomy pad. The internal mammary was divided and made ready for anastomosis. Opening of the left pericardium was made. The inflow to LAD was occluded and the vessel was opened. End-to-side anastomosis was performed. Good Doppler signal was noted. Pedicles tacked to the heart. Good Doppler signal after removing the inflow occlusion and the heart was then returned to the anatomic position. Attempt was made to visualize an inferior wall vessel again by dissecting down the right coronary artery, but no sizable vessel with no calcification was noted. There was some firm areas, but no vessel was identified. It was felt also be deep within the epicardial fat as was the LAD and as this vessel appeared to be amenable to later percutaneous intervention, any further effort for coronary bypass graft was aborted. The patient was stable. He was fully rewarmed. He was weaned from cardiopulmonary bypass. The patient was decannulated. The cannula sites were oversewn. Atrial pacing wires were placed and the patient was paced. Ventricular pacing wires were placed. Thorough irrigation was undertaken. Left chest was evacuated and irrigated. The internal mammary harvest site was inspected for bleeding. Drains were placed in the mediastinum with pleural cavity. The sternum was closed with wires. Fascia was closed. Subcutaneous tissue was closed. Skin was closed. Dermabond was placed. The needle and sponge counts were correct. OPERATIVE REPORT [id number] GERALDINE HOWELL The patient was taken to ICU in stable condition. TRANSINT:[id number] Voice Confirmation ID: [id number] DOCUMENT ID: [id number] ZACHARY GREENBERG MD at 1145 CC: AXEL MACEDO M.D. and SUSANA BEARD DO [id number] DICTATION DATE: 02/25/20 1402 PHARMACOEPIDEMIOLOGIST: 02/25/20 1915 ADM IN [place] [id number] [place] [id number]
--- NOTE | 2020-02-26 12:29 | NUR ---
DR FLOOD IN ROOM OK TO WEAN VENT AFTER DIALYSIS, RT IN ROOM AND AWARE
--- NOTE | 2020-02-26 13:16 | NUR ---
dialysis done, pt repositioned, rt notified
--- NOTE | 2020-02-26 13:59 | NUR ---
RT ATTEMPTED TO WEAN VENT, DECREASED SEDATION, PT UNABLE TO FOLLOW COMMANDS, BEGAN BUCKING IN BED, CHEWING ETT, BROKE SCDS, KICKING AT STAFF, ATTEMPTED TO REORIENT SEVERAL TIMES WITH SEVERAL STAFF MEMBERS, BITE BLOCK PLACED BY RT, PAGED AND SPOKE WITH DR FLOOD, ORDERS TO PLACE BACK ON A RATE AND SEDATE.
--- NOTE | 2020-02-26 15:11 | NUR ---
PT CONTINUALLY ATTEMPTING TO SIT UPRIGHT, ALARMING VENT AND KICKING LEGS, DR ALEENA GARIBAY, ORDERS FOR VERSED
--- NOTE | 2020-02-26 17:59 | NUR ---
UPDATED DR GREENBERG ON PT, ORDERS TO DC DOPAMINE AND USE HYDRALAZINE PRN TO WEAN GTTS
--- NOTE | 2020-02-26 19:00 | NUR ---
REPORT RECEIVED. RECEIVED PATIENT IN BED SEDATED/INTUBATED. ETT INTACT/SECURE/PATENT CONNECTED TO MECHANICAL VENT AT ORDERED SETTINGS MEDIASTINAL CHEST TUBES INTACT/SECURE/PATENT DRAINING SMALL AMOUNT OF BLOODY FLUID INTO COLLECTION CHAMBERS. CT TO 20 CM WALL SUCTION WITH NO AIR LEAKS SEEN. ASSESSMENT COMPLETED PER FLOW SHEET WITH NO ACUTE DISTRESS OBSERVED. MONITORS CONNECTED TO PATIENT WITH ALARMS SET. VSS
--- NOTE | 2020-02-26 20:15 | NUR ---
DR. GREENBERG UPDATED ON PATIENT NEW ORDERS RECEIVED
--- NOTE | 2020-02-26 20:30 | NUR ---
PHARMACY NOT OPEN. NEW ORDER FAXED TO BLUE LINE OPERATOR
--- NOTE | 2020-02-26 23:00 | NUR ---
SEDATED/INTUBATED. REASSESSMENT COMPLETED PER FLOW SHEET WITH NO ACUTE DISTRESS OBSERVED. VSS.
[2020-02-27] VITALS (109 sets, daily range): BP systolic 123–169; BP diastolic 29–578
--- NOTE | 2020-02-27 00:35 | NUR ---
MIXED VENOUS GAS DRAWN FOR VIGILANCE CALIBRATION NURSE MERLIN NOTIFIED
--- NOTE | 2020-02-27 00:35 | NUR ---
VIGILANCE DISCONNECTED ACCIDENTALLY. VIGILANCE RECALIBRATED SVO2 CURRENTLY 75
--- NOTE | 2020-02-27 01:00 | NUR ---
SEDATED/INTUBATED. ORAL CARE GIVEN. TURNED AND POSITIONED FOR COMFORT. VSS
--- NOTE | 2020-02-27 03:00 | NUR ---
SEDATED/INTUBATED. REASSESSMENT COMPLETED PER FLOW SHEET WITH NO ACUTE DISTRESS OBSERVED. VSS.
--- NOTE | 2020-02-27 05:00 | NUR ---
SEDATED/INTUBATED. CHG BATH, ORAL CARE AND LINEN CHANGE PROVIDED. SUBSTERNAL DRSG CHANGE AND MELINDA A LINE DRSG CHANGED. JOHNNY WELL . VSS
[2020-02-27 06:47] LABS: BASOPHILS 0.3 % (0-2); HEMATOCRIT 26.4 % (42.0-54.0); HEMOGLOBIN 8.3 g/dL (13.5-17.5); IMMATURE GRANULOCYTES 0.8 % (0-5); LYMPHOCYTES 5.3 % (15-50); MCH 29.7 pg (26.0-34.0); MCHC 31.4 g/dL (31.0-37.0); MCV 94.6 fL (80.0-100.0); MEAN PLATELET VOLUME 9.2 fL (7.4-10.4); MONOCYTES 9.7 % (2-11); NEUTROPHILS 80.9 % (40-80); PLATELET COUNT 230 10x3/uL (130-400); RBC 2.79 10x6/uL (4.20-6.10); RDW 17.9 % (11.5-14.5)
[2020-02-27 06:49] LABS: WBC 15.3 10x3/uL (4.8-10.8)
[2020-02-27 07:13] LABS: ALBUMIN 2.4 g/dL (3.4-5.0); BILIRUBIN - TOTAL 0.57 mg/dL (0.2-1.3); CALCIUM 9.9 mg/dL (8.5-10.1); CARBON DIOXIDE 26.6 mmol/L (21.0-32.0); PROTEIN - SERUM 6.5 g/dL (6.4-8.2)
--- NOTE | 2020-02-27 07:36 | NUR ---
DR. GREENBERG NOTIFIED OF BP 148/50. ORDERS RECEIVED.
[2020-02-27 07:44] LABS: ANION GAP 19.2 mmol/L (8-16); CREATININE - SERUM 6.8 mg/dL (0.6-1.3); POTASSIUM - SERUM 4.8 mmol/L (3.5-5.1)
--- NOTE | 2020-02-27 09:09 | NUR ---
TINO SAENZ AT THIS TIME PER ORDER. TOLERATED WELL.
--- NOTE | 2020-02-27 12:45 | NUR ---
PT EXTUBATED AT 1240. PLACED ON 6L O2 VIA NC. PROPOFOL TURNED OFF PRIOR TO EXTUBATION. WILL CONTINUE TO MONITOR.
--- NOTE | 2020-02-27 13:24 | NUR ---
ON 6L NC WITH O2 SAT 95%. PT RESTLESS AT THIS TIME. MORPHINE GIVEN FOR PAIN. RESTRAINTS REMAIN IN PLACE TO HELP KEEP PT SAFE. WILL CONTINUE TO MONITOR CLOSELY.
--- NOTE | 2020-02-27 13:33 | NUR ---
CALL RECEIVED FROM PT'S SISTER. PASSCODE VERIFIED. BRIEF UPDATE GIVEN.
--- NOTE | 2020-02-27 14:23 | NUR ---
PT CONTINUES TO BE RESTLESS. YELLING "HELP ME." DOES NOT SAY WHAT HE NEEDS HELP WITH. PULLED UP IN BED AND REPOSITIONED FOR COMFORT. WILL CONTINUE TO MONITOR CLOSELY.
--- NOTE | 2020-02-27 17:00 | NUR ---
BED MAYEN PROVIDED. NO BM NOTED. PULLED UP AND REPOSITIONED FOR COMFORT. MORPHINE 2MG IV WAS GIVEN FOR PAIN. PT CONTINUES TO SAY "HELP ME, HELP ME." UNABLE TO LET NURSE KNOW WHAT HE NEEDS HELP WITH. WILL CONTINUE TO MONITOR.
--- NOTE | 2020-02-27 17:28 | NUR ---
O2 SAT DROPPED TO 88% ON 4L NC. INCREASED TO 6L. O2 SAT INCREASED TO 93%. PULLED AND REPOSITIONED FOR COMFORT. NO FURTHER NEEDS AT THIS TIME.
--- NOTE | 2020-02-27 17:58 | NUR ---
UPDATE GIVEN TO DR. GREENBERG. NO NEW ORDERS RECEIVED.
--- NOTE | 2020-02-27 19:10 | NUR ---
PT RECEIVED IN BED WITH EYES OPEN ON BIPAP 08/05 45%. CONFUSION NOTED. PT YELLING OUT FOR HELP AND CONTINUES TO SAY HELP WHEN ASKED WHAT HE NEEDS HELP WITH. PT KICKING LEGS NOT ATTEMPTING TO KICK STAFF, DID KICK THIS NURSE LIGHTLY AND PT QUICKLY SAYING HE WAS SORRY, BUT CONTINUED TO KICK LEGS JUST IN DIFFERENT DIRECTION. CHEST TUBES X3 TO SUCTION, TIFFANIE DRAIN COMPRESSED. JORGENSEN IN PLACE. RIGHT IJ WITH PLASMALYTE AND CLEVIPREX TO TITRATE NEEDED. WILL CONTINUE TO OBSERVE.
--- NOTE | 2020-02-27 21:58 | NUR ---
PT RESTING WITH EYES CLOSED AND CHEST RISING. PT CALM AT THIS TIME. WILL CONTINUE TO OBSERVE.
--- NOTE | 2020-02-27 23:45 | NUR ---
PT CONTINUES TO YELL OUT HELP AND NOT STOP WHEN ASKED WHAT HE NEEDS HELP. PT RESTLESS CONSTANTLY SLIDING DOWN IN BED. PULLING AGAINST RESTRAINTS. PT PULLED UP IN BED. WILL CONTINUE TO OBSERVE.
[2020-02-28] VITALS (95 sets, daily range): BP systolic 124–178; BP diastolic 45–78
--- NOTE | 2020-02-28 06:00 | NUR ---
PT RESTING WITH EYES CLOSED AND CHEST RISING. NO S/S OF DISTRESS. WILL CONTINUE TO OBSERVE.
[2020-02-28 06:19] LABS: ALBUMIN 2.5 g/dL (3.4-5.0); ANION GAP 21.9 mmol/L (8-16); BILIRUBIN - TOTAL 0.84 mg/dL (0.2-1.3); CALCIUM 9.6 mg/dL (8.5-10.1); CARBON DIOXIDE 23.3 mmol/L (21.0-32.0); CREATININE - SERUM 8.4 mg/dL (0.6-1.3); POTASSIUM - SERUM 5.2 mmol/L (3.5-5.1); PROTEIN - SERUM 6.7 g/dL (6.4-8.2)
--- NOTE | 2020-02-28 06:45 | NUR ---
PT WITH EYES CLOSED AND CHEST RISING. EASILY AWOKEN TO VERBAL STIMULI. PT ABLE TO STATE NAME AND HE WAS IN HOSPITAL. WILL CONTINUE TO OBSERVE.
[2020-02-28 07:07] LABS: HEMOGLOBIN 7.9 g/dL (13.5-17.5); MCHC 31.6 g/dL (31.0-37.0); MCV 95.1 fL (80.0-100.0); MEAN PLATELET VOLUME 9.5 fL (7.4-10.4); PLATELET COUNT 237 10x3/uL (130-400); RBC 2.63 10x6/uL (4.20-6.10); RDW 17.9 % (11.5-14.5); WBC 20.2 10x3/uL (4.8-10.8)
--- NOTE | 2020-02-28 08:09 | NUR ---
DR GREENBERG IN THE UNIT. PER DR GREENBERG. DANGLE THE PT AND PREPARE TO PULL CT. PT DANGLED AT THE SIDE OF THE BED. SCANT AMOUNT OF DRAINAGE NOTED. PT VERY CONFUSED. PT DESATURATED TO 85%. O2 INCREASED TO 7L VIA NC. PT CT PULLED BY DR GREENBERG. DRESSING CHANGED. CT SITES SHOW NO S/SX OF INFECTION. TPM WIRES COILED PER DR GREENBERG. OK TO PULL CANDIS AND FC. PT PUT ON BIPAP AT 45% AND O2 SATURATION INCREASED TO 95. VSS WILL CONT POC.
--- NOTE | 2020-02-28 08:20 | NUR ---
DR LAWRENCE AT THE PTS BEDSIDE. PLAN FOR DIALYSIS TODAY.
--- NOTE | 2020-02-28 09:36 | NUR ---
MEDICATION CRUSHED, THAT WERE ABLE, AND PUT IN APPLE SAUCE. PT TOOK THE MEDICATION WITH NO ISSUES AND NO DYSPAGIA NOTED. VSS. CALL LIGHT IN REACH. WILL CONT POC.
--- NOTE | 2020-02-28 11:29 | NUR ---
LUCHOSYS NURSE AT THE PTS BEDSIDE.
[2020-02-28 11:42] LABS: ANISOCYTOSIS OCC; EOSINOPHILS 3 % (0-7); LYMPHOCYTES 9 % (15-50); MONOCYTES 12 % (2-11); NEUTROPHILS 75 % (40-80); PLATELET ESTIMATE NORMAL
--- NOTE | 2020-02-28 12:35 | NUR ---
Nutrition Follow-up: POD 3 CABG. Extubated yesterday. Remains NPO. ST eval pending. HD today. Wt: 173# (02/27); 156# (02/22) Last BM: 02/20 Labs noted: Na 132, K+ 5.2, Alb 2.5 Meds noted: Colace, Nephrovite -Rec ADAT as medically feasible to renal diet with consistencies per ST. If unable to advance diet, rec consider nutrition support. -Monitor wt. -RD following.
--- NOTE | 2020-02-28 13:00 | NUR ---
PT RECIEVED CONFUSED, ON BIPAP AND DIALYSIS, NO NEEDS NOTED
--- NOTE | 2020-02-28 19:00 | NUR ---
PT ASSESSMENT COMPLETED AT THIS TIME, NO CHANGES NOTED FROM NURSE REPORT, PT IS AWAKE AND ALERT YELLING OUT "HELP" WHEN QUESTIONES ABOUT WHAT THE PATIENT IS NEEDING HE DOES NOT REPLY ONLY YELLS HELP. RESP ARE EVEN AND SHALLOW, VSS, NO ACUTE DISTRESS OR CHANGES FROM PREVIOUS NURSES REPORT, WILL MONITOR FOR CHANGES
--- NOTE | 2020-02-28 21:00 | NUR ---
PT RESTING ON BIPAP, RESP EVEN AND IMPROVED DEPTH, VSS ON CLEVIPREX, WILL MONITOR AND TITRATE NEEDED
--- NOTE | 2020-02-28 23:15 | NUR ---
PT REMAINS CONFUSED, ON BIPAP, CONSTANTLY YELLS OUT, UNABLE TO REDIRECT
[2020-02-29] VITALS (66 sets, daily range): BP systolic 133–166; BP diastolic 51–80
--- NOTE | 2020-02-29 01:00 | NUR ---
PT REMAINS CONFUSED, YELLS OUT CONSTANTLY, VITALS STABLE
--- NOTE | 2020-02-29 04:41 | NUR ---
UNABLE TO GIVE VIBRAMYCIN ANTIBIOTIC, UNAVAILABLE FROM PHARMACY AT THIS TIME
[2020-02-29 06:07] LABS: BASOPHILS 0.3 % (0-2); EOSINOPHILS 2.4 % (0-7); IMMATURE GRANULOCYTES 0.9 % (0-5); LYMPHOCYTES 7.2 % (15-50); MCH 29.3 pg (26.0-34.0); MCHC 30.4 g/dL (31.0-37.0); MCV 96.4 fL (80.0-100.0); MEAN PLATELET VOLUME 9.3 fL (7.4-10.4); MONOCYTES 8.9 % (2-11); NEUTROPHILS 80.3 % (40-80); PLATELET COUNT 240 10x3/uL (130-400); RBC 2.49 10x6/uL (4.20-6.10); RDW 17.8 % (11.5-14.5)
--- NOTE | 2020-02-29 06:30 | NUR ---
DRESSING CHANGED TO SUBSTERNAL TIFFANIE DRAIN AND TPM WIRE SITE, PT CONFUSED, KICKING, SAYING STOP IT BILL, UNABLE TO REORIENT OR REDIRECT
[2020-02-29 06:31] LABS: ALBUMIN 2.3 g/dL (3.4-5.0); ANION GAP 19.8 mmol/L (8-16); BILIRUBIN - TOTAL 0.84 mg/dL (0.2-1.3); CALCIUM 9.7 mg/dL (8.5-10.1); CARBON DIOXIDE 24.7 mmol/L (21.0-32.0); CREATININE - SERUM 5.9 mg/dL (0.6-1.3); POTASSIUM - SERUM 4.5 mmol/L (3.5-5.1); PROTEIN - SERUM 6.6 g/dL (6.4-8.2)
[2020-02-29 06:51] LABS: WBC 14.8 10x3/uL (4.8-10.8)
[2020-02-29 06:52] LABS: HEMOGLOBIN 7.3 g/dL (13.5-17.5)
--- NOTE | 2020-02-29 07:10 | NUR ---
DR GREENBERG NOTIFIED OF H&H
--- NOTE | 2020-02-29 11:37 | NUR ---
0730 PT RECIEVED IN BED, CONFUSED AND BELIEVES HE SPENT NIGHT IN A HOME, UNABLE TO REORIENT, REMINDED PT HE WAS IN HOSPITAL FOR HEART SURGERY AND ATTEMPTED TO DIRECT ATTENTION TO MIDSTERNAL DRESSING, PT STATED HE DID NOT HAVE HEART SURGERY AND THAT HE HAD LOOKED AND HAD NO INCISION, UNABLE TO REOREINT, MOOD MAJORITY PLEASANT BUT REFUSES TO DO IS AND ATTEMPTS TO PULL LINES THAT ARE WITHIN REACH, 0900 TOOK AM MEDS WITHOUT DIFFICULTY 1130 TOLERATED SWALLOW EVAL WITHOUT DIFFICULTY
[2020-03-01] VITALS (23 sets, daily range): BP systolic 131–176; BP diastolic 62–97
[2020-03-01 04:57] LABS: BASOPHILS 0.4 % (0-2); EOSINOPHILS 4.5 % (0-7); HEMATOCRIT 26.4 % (42.0-54.0); HEMOGLOBIN 8.3 g/dL (13.5-17.5); IMMATURE GRANULOCYTES 1.8 % (0-5); LYMPHOCYTES 10.4 % (15-50); MCH 29.9 pg (26.0-34.0); MCHC 31.4 g/dL (31.0-37.0); MEAN PLATELET VOLUME 9.1 fL (7.4-10.4); MONOCYTES 10.6 % (2-11); NEUTROPHILS 72.3 % (40-80); PLATELET COUNT 234 10x3/uL (130-400); RBC 2.78 10x6/uL (4.20-6.10); RDW 18.1 % (11.5-14.5); WBC 13.4 10x3/uL (4.8-10.8)
[2020-03-01 05:03] LABS: ALBUMIN 2.2 g/dL (3.4-5.0); ANION GAP 17.3 mmol/L (8-16); BILIRUBIN - TOTAL 0.76 mg/dL (0.2-1.3); CALCIUM 9.4 mg/dL (8.5-10.1); CARBON DIOXIDE 26.5 mmol/L (21.0-32.0); POTASSIUM - SERUM 4.8 mmol/L (3.5-5.1); PROTEIN - SERUM 6.6 g/dL (6.4-8.2)
[2020-03-01 05:04] LABS: CREATININE - SERUM 7.5 mg/dL (0.6-1.3)
--- NOTE | 2020-03-01 05:15 | NUR ---
DRESSING CHANGED TO TIFFANIE DRAIN AND TPM WIRES, PT COOPERATIVE WITH CARE
--- NOTE | 2020-03-01 07:30 | NUR ---
PATIENT UP IN CHAIR. AWAKE AND ALERT ORIENTATED X 4. COOPERATIVE. TALKATIVE A LITTLE LOUD. RIJ CENTRAL LINE DRESSING DRY AND INTACT. MID LINE CHEST DRESSING DRY AND INTACT. SUBSTERANL DRESSING DRY AND INTACT. EDWIN DRAIN COMPRESSED SERSANG DRAINAGE. RIGHT LEG INCISION WITHOUT REDNESS OR DRAINAGE. ONITOR SR. NO DISTRESS. WEANING OXYGEN.
--- NOTE | 2020-03-01 08:00 | NUR ---
BREAKFAST SERVED ATE 100%. FEEDING SELF. NO DISTRESS. CONTINUE TO WEAN OXYGEN
--- NOTE | 2020-03-01 09:00 | NUR ---
DR. GREENBERG HERE. NEW ORDERS RECEIVED. FOR REHAB EVAL AND DC RIJ CENTRAL LINE
--- NOTE | 2020-03-01 10:57 | NUR ---
Rehab Note- Acute Inpatient Rehab prescreen order received. The patient is noted to be aggitated, in & out of restraints at times, inappropriate with participating with Physical Therapy- the patient is not appropriate at this time for Inpatient Acute Rehab. Thank you for this referral! Amie Wright RN Clinical Liaison, [facility] Rehab
--- NOTE | 2020-03-01 11:00 | NUR ---
DIALYSIS IN PROGRESS WITH PATIENT UP IN CHAIR. PATIENT TOLERATING WELL. COOPERATIVE. NO DISTRESS. VERY TALKATIVE.
--- NOTE | 2020-03-01 11:19 | NUR ---
Nutrition Follow-up: POD 5 CABG. Pt still somewhat confused. Nursing reports pt ate 100% of breakfast this AM. Diet: Renal, Mech Soft, Chopped Meats PO intake: 75-100% Wt: 176.3# (03/01); 156# (02/22) Last recorded BM: 02/20 Labs noted: Na 135, K+ 4.8, Alb 2.2 Meds noted: Colace, Nephrovite -Encourage PO intake and honor food preferences within diet restrictions. -Monitor wt. -RD following.
--- NOTE | 2020-03-01 12:00 | NUR ---
LUNCH TRAY SERVED ATE WELL. NO DISTRESS. DIALYSIS CONTINUES.
--- NOTE | 2020-03-01 13:00 | NUR ---
FAMILY HERE UPDATE GIVEN
--- NOTE | 2020-03-01 14:25 | MORECARE ---
CASE MANAGEMENT DISCHARGE SUMMARY PATIENT: GERALDINE HOWELL UNIT: [id number] ADM DATE: 02/20/20 AGE: 54 : 67 SEX: M ROOM/BED: [facility] AUTHOR: DARIUS,DOC PHYSICIAN: REFERRING PHYSICIAN: NAVEED MIX MD DATE OF SERVICE: 03/01/20 Discharge Plan Patient Name: GERALDINE HOWELL Facility: [facility]:[place] : 1965 Planned Disposition: Anticipated Discharge Date: Discharge Date: Expected LOS: Initial Reviewer: [id number] Initial Review Date: 02/21/2020 Generated: 03/01/20 3:24 pm Comments DCP- Discharge Planning Updated by [email or web address]: Karon Bravo on 03/01/20 1:[address] REHAB PRESCREEN COMPLETED TODAY. SCREENER DIDN'T FEEL HE WAS APPROPRIATE. PATIENT HAD PHYSICAL THERAPY EVAL 02/29/2020. HE WAS NOT COOPERATIVE AND CONFUSED. AWAIT PHYSICAL THERAPY TODAY. REPORTEDLY HE WAS COOPERATIVE TODAY W/ PT. AMBULATED 250 FEET BUT HAD TO STOP TO REST 3 TIMES. NURSE REPORTS MORE ALERT AND COOPERATIVE. WILL REQUEST REHAB EVAL AGAIN. DCP- Discharge Planning Updated by [email or web address]: Tiffanie Houston on 02/23/20 12:[address] Patient Name: GERALDINE HOWELL Admission Status: ER Accout number: [id number] Admission Date: 02-20-2020 : 1965 Admission Diagnosis:NON-ST ELEVATION (NSTEMI) MYOCARDIAL INFARCTION Attending: NAVEED MIX Current LOS: 3 Anticipated DC Date: Planned Disposition: Primary Insurance: MEDICARE A & B Discharge Planning Comments: CM met with patient to complete initial dc planning assessment. CM educated patient on the CM role and verbal consent given by patient to complete assessment. CM verified patient's address, phone number, and emergency contact phone numbers. Patient lives at home with his mother. 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 At discharge patient plans to return home and feels this is a safe discharge. 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 HALLIE signed for [employer] [facility] for or [facility], IP rehab at [facility], and [facility]. Pt has a can, walker, shower chair at home. Pt drives to dialysis MWF in [place]. Patient denies other known discharge needs at this time. Transportation provider at discharge will be . CM will continue to follow and will assist as needed with dc plans/needs. Shot Core Drill Operator Helper: Tiffanie Houston MSN,RN,CM DCPIA - Discharge Planning Initial Assessment Updated by [id number]: Tiffanie Houston on 02/23/20 1:41 pm * Is the patient Alert and Oriented? Yes * How many steps to enter\exit or inside your home? 4/0 * PCP Juan * [facility] [place] * Preadmission Environment Home with Family * ADLs Independent * Equipment Cane Grab Bars Rolling Walker Shower Chair Walker * List name and contact numbers for known caregivers / representatives who currently or will assist patient after discharge: Annalee Steiner [phone] * Verbal permission to speak to the caregivers and representatives has been obtained from the patient. Yes * Community resources currently utilized None * Additional services required to return to the preadmission environment? Yes * Can the patient safely return to the preadmission environment? Yes * Has this patient been hospitalized within the prior 30 days at any hospital? No Coverage Notice Reviewer: [id number] - Tiffanie Houston Notice Issued Date-Time: 02/23/2020 13:30 Notice Type: Patient Choice Letter Notice Delivered To: Patient Relationship to Patient: Guard Immigration Name: Delivery Method: HAND - Hand Delivered Kelsie Days: Prior Verbal Notification: Recipient Understood Notice: Yes Recipient Signature: Yes Med Rec Note Co-signed by Attending: Coverage Notice Comment: Choice signed for [facility] in [place], [place], IP rehab at [facility], and [place] Last DP export: 02/23/20 12:47 p Patient Name: GERALDINE HOWELL Page 11111 at 1425 All edits/amendments must be made on the electronic document DICTATION DATE: 03/01/201424 CCNA: BERYL 03/01/201424 RPT#: [id number] DC DATE: STATUS: ADM IN [facility] [address] [place] [address] END OF REPORT
--- NOTE | 2020-03-01 15:00 | NUR ---
DIALYSIS COMPLETED REMOVED 3 LITERS OF FLUID. PHYSICAL THERAPY HERE AMBULATED IN ALL. ONLY HAD TO STOP FOR SHORTNESS OF BREATH ONCE IN THE 250 FEET. RETURNED TO BED RIJ CENTRAL LINE REMOVED. NO BLEEDING OR HEMATOMA NOTED. DRESSING APPLIED. PATIENT TOLERATED FAIR. PRUNE JUICE GIVEN FOR BOWELS.
--- NOTE | 2020-03-01 16:30 | NUR ---
DR. WHITE CALL ABOUT BLOOD PRESSURE. CLOINDINE 0.1 MG PO Q 4 HOURS PRN. ORDERED
--- NOTE | 2020-03-01 17:00 | NUR ---
UP IN CHAIR AT BEDSIDE. GAIT STILL UNSTEADY. NEEDS ASSISTANCES. DINNER TRAY SERVED.
--- NOTE | 2020-03-01 17:37 | NUR ---
AMBULATED TO BATHROOM FOR BM. GAIT UNSTEADY. HAS TO HOLD ON TO SOMEONE TO STEADY GAIT. TOLERATED FAIR. GOOD APPETITE FOR DINNER.
--- NOTE | 2020-03-01 19:30 | NUR ---
PT AWAKE, TALKING LOUDLY ON PHONE, ASSESSMENT COMPLETED, WILL CONT TO MONITOR
--- NOTE | 2020-03-01 21:15 | NUR ---
PT REMAINS AWAKE, TALKING ON PHONE, TAKES PO MEDS WITHOUT DIFFICULTY, INSTRUCTED PT HE NEEDED TO RELAX DUE TO ELEVATED B/P
--- NOTE | 2020-03-01 23:00 | NUR ---
PT RESTING QUIETLY WITH EYES CLOSED, VITALS STABLE
[2020-03-02] VITALS (19 sets, daily range): BP systolic 138–167; BP diastolic 57–71
[2020-03-02 05:03] LABS: HEMATOCRIT 27.2 % (42.0-54.0); HEMOGLOBIN 8.4 g/dL (13.5-17.5); MCH 29.7 pg (26.0-34.0); MCHC 30.9 g/dL (31.0-37.0); MCV 96.1 fL (80.0-100.0); MEAN PLATELET VOLUME 8.7 fL (7.4-10.4); RBC 2.83 10x6/uL (4.20-6.10); RDW 17.6 % (11.5-14.5); WBC 11.4 10x3/uL (4.8-10.8)
[2020-03-02 05:22] LABS: ALBUMIN 2.2 g/dL (3.4-5.0); ANION GAP 13.4 mmol/L (8-16); BILIRUBIN - TOTAL 0.78 mg/dL (0.2-1.3); CALCIUM 9.4 mg/dL (8.5-10.1); CARBON DIOXIDE 29.8 mmol/L (21.0-32.0); CREATININE - SERUM 6.1 mg/dL (0.6-1.3); POTASSIUM - SERUM 4.2 mmol/L (3.5-5.1); PROTEIN - SERUM 6.4 g/dL (6.4-8.2)
--- NOTE | 2020-03-02 09:01 | NUR ---
0700 PT RECIEVED UP IN CHAIR, PLEASANTLY CONFUSED, VSS DENIES PAIN AND ALL NEEDS, CALL LIGHT WITHIN REACH, SEE SHIFT ASSESSMENT FOR DETAILS 0900 TOOK AM MEDS WITHOUT DIFFICULTY, ATE 75% BREAKFAST
[2020-03-02 09:34] LABS: BASOPHILS 0.3 % (0-2); EOSINOPHILS 4.3 % (0-7); HEMATOCRIT 26.9 % (42.0-54.0); HEMOGLOBIN 8.5 g/dL (13.5-17.5); IMMATURE GRANULOCYTES 1.8 % (0-5); LYMPHOCYTES 9.8 % (15-50); MCH 30.5 pg (26.0-34.0); MCHC 31.6 g/dL (31.0-37.0); MCV 96.4 fL (80.0-100.0); MEAN PLATELET VOLUME 8.8 fL (7.4-10.4); MONOCYTES 8.3 % (2-11); NEUTROPHILS 75.5 % (40-80); PLATELET COUNT 219 10x3/uL (130-400); RBC 2.79 10x6/uL (4.20-6.10); RDW 17.6 % (11.5-14.5)
--- NOTE | 2020-03-02 09:42 | NUR ---
PT ASSISTED TO BED AND TIFFANIE DRAIN AND TPM WIRES DCD BY DR GREENBERG
--- NOTE | 2020-03-02 10:20 | MORECARE ---
CASE MANAGEMENT DISCHARGE SUMMARY PATIENT: GERALDINE HOWELL UNIT: [id number] ADM DATE: 02/20/20 AGE: 54 : 67 SEX: M ROOM/BED: [facility] AUTHOR: DARIUS,DOC PHYSICIAN: REFERRING PHYSICIAN: NAVEED MIX MD DATE OF SERVICE: 03/02/20 Discharge Plan Patient Name: GERALDINE HOWELL Facility: [facility]:[place] : 1965 Planned Disposition: Anticipated Discharge Date: Discharge Date: Expected LOS: Initial Reviewer: [id number] Initial Review Date: 02/21/2020 Generated: 03/02/20 11:19 am Comments DCP- Discharge Planning Updated by [id number]: Karon Bravo on 03/02/20 9:[address] CM SPOKE W/ EBER, REHAB SCREENER AT 1630 03/01/2020. DISCUSSED PATIENT'S PRESENT STATUS AND HIS PROGRESS W/ PHYSICAL THERAPY TODAY. SHE WILL RE-EVAL IN THE AM. DCP- Discharge Planning Updated by [email or web address]: Karon Bravo on 03/01/20 1:[address] REHAB PRESCREEN COMPLETED TODAY. SCREENER DIDN'T FEEL HE WAS APPROPRIATE. PATIENT HAD PHYSICAL THERAPY EVAL 02/29/2020. HE WAS NOT COOPERATIVE AND CONFUSED. AWAIT PHYSICAL THERAPY TODAY. REPORTEDLY HE WAS COOPERATIVE TODAY W/ PT. AMBULATED 250 FEET BUT HAD TO STOP TO REST 3 TIMES. NURSE REPORTS MORE ALERT AND COOPERATIVE. WILL REQUEST REHAB EVAL AGAIN. DCP- Discharge Planning Updated by [id number]: Tiffanie Houston on 02/23/20 12:[address] Patient Name: GERALDNIE HOWELL Admission Status: ER Accout number: [id number] Admission Date: 02-20-2020 : 1965 Admission Diagnosis:NON-ST ELEVATION (NSTEMI) MYOCARDIAL INFARCTION Attending: NAVEED MIX Current LOS: 3 Anticipated DC Date: Planned Disposition: Primary Insurance: MEDICARE A & B Discharge Planning Comments: CM met with patient to complete initial dc planning assessment. CM educated patient on the CM role and verbal consent given by patient to complete assessment. CM verified patient's address, phone number, and emergency contact phone numbers. Patient lives at home with his mother. 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 At discharge patient plans to return home and feels this is a safe discharge. 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 HALLIE signed for [employer] [facility] for or [place], IP rehab at [facility], and [facility]. Pt has a can, walker, shower chair at home. Pt drives to dialysis MWF in [place]. Patient denies other known discharge needs at this time. Transportation provider at discharge will be . CM will continue to follow and will assist as needed with dc plans/needs. Jet Handler: Tiffanie Houston MSN,RN,CM DCPIA - Discharge Planning Initial Assessment Updated by [email or web address]: Tiffanie Houston on 02/23/20 1:41 pm * Is the patient Alert and Oriented? Yes * How many steps to enter\exit or inside your home? 4/0 * PCP Juan * [facility] [place] * Preadmission Environment Home with Family * ADLs Independent * Equipment Cane Grab Bars Rolling Walker Shower Chair Walker * List name and contact numbers for known caregivers / representatives who currently or will assist patient after discharge: Annalee Mother [phone] * Verbal permission to speak to the caregivers and representatives has been obtained from the patient. Yes * Community resources currently utilized None * Additional services required to return to the preadmission environment? Yes * Can the patient safely return to the preadmission environment? Yes * Has this patient been hospitalized within the prior 30 days at any hospital? No Coverage Notice Reviewer: [id number] - Tiffanie Houston Notice Issued Date-Time: 02/23/2020 13:30 Notice Type: Patient Choice Letter Notice Delivered To: Patient Relationship to Patient: Bunch Breaker Machine Operator Name: Delivery Method: HAND - Hand Delivered Kelsie Days: Prior Verbal Notification: Recipient Understood Notice: Yes Recipient Signature: Yes Med Rec Note Co-signed by Attending: Coverage Notice Comment: Choice signed for [facility] in [place], [facility], IP rehab at [facility], and [facility] Last DP export: 03/01/20 1:25 pm Patient Name: GERALDINE HOWELL Page 73270 at 1020 All edits/amendments must be made on the electronic document DICTATION DATE: 03/02/20 [address] [place]: BERYL 03/02/20 1019 RPT#: [id number] DC DATE: STATUS: ADM IN [facility] [address] [facility] [place] [address] END OF REPORT
--- NOTE | 2020-03-02 11:13 | NUR ---
PT OK TO DC TO REHAB PER DR GREENBERG, ACCEPTED AND AWAITING DC ORDER FROM DR MIX PER DR [facility]
--- NOTE | 2020-03-02 11:40 | MORECARE ---
CASE MANAGEMENT DISCHARGE SUMMARY PATIENT: GERALDINE HOWELL UNIT: [id number] ADM DATE: 02/20/20 AGE: 54 : 67 SEX: M ROOM/BED: [facility] AUTHOR: DARIUS,DOC PHYSICIAN: REFERRING PHYSICIAN: NAVEED MIX MD DATE OF SERVICE: 03/02/20 Discharge Plan Patient Name: GERALDINE HOWELL Facility: [facility]:[place] : 1965 Planned Disposition: Inpatient Rehab Anticipated Discharge Date: 03/02/20 Discharge Date: Expected LOS: 11 Initial Reviewer: [email or web address] Initial Review Date: 02/21/2020 Generated: 03/02/20 12:39 pm Comments DCP- Discharge Planning Updated by [email or web address]: Karon Bravo on 03/02/20 9:[address] CM SPOKE W/ EBER, REHAB SCREENER AT 1630 03/01/2020. DISCUSSED PATIENT'S PRESENT STATUS AND HIS PROGRESS W/ PHYSICAL THERAPY TODAY. SHE WILL RE-EVAL IN THE AM. DCP- Discharge Planning Updated by [id number]: Karon Bravo on 03/01/20 1:[address] REHAB PRESCREEN COMPLETED TODAY. SCREENER DIDN'T FEEL HE WAS APPROPRIATE. PATIENT HAD PHYSICAL THERAPY EVAL 02/29/2020. HE WAS NOT COOPERATIVE AND CONFUSED. AWAIT PHYSICAL THERAPY TODAY. REPORTEDLY HE WAS COOPERATIVE TODAY W/ PT. AMBULATED 250 FEET BUT HAD TO STOP TO REST 3 TIMES. NURSE REPORTS MORE ALERT AND COOPERATIVE. WILL REQUEST REHAB EVAL AGAIN. DCP- Discharge Planning Updated by [id number]: Tiffanie Houston on 02/23/20 12:[address] Patient Name: GERALDINE HOWELL Admission Status: ER Accout number: [id number] Admission Date: 02-20-2020 : 1965 Admission Diagnosis:NON-ST ELEVATION (NSTEMI) MYOCARDIAL INFARCTION Attending: NAVEED MIX Current LOS: 3 Anticipated DC Date: Planned Disposition: Primary Insurance: MEDICARE A & B Discharge Planning Comments: CM met with patient to complete initial dc planning assessment. CM educated patient on the CM role and verbal consent given by patient to complete assessment. CM verified patient's address, phone number, and emergency contact phone numbers. Patient lives at home with his mother. 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 At discharge patient plans to return home and feels this is a safe discharge. 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 HALLIE signed for [facility], IP rehab at [facility], and [facility]. Pt has a can, walker, shower chair at home. Pt drives to dialysis MWF in [place]. Patient denies other known discharge needs at this time. Transportation provider at discharge will be . CM will continue to follow and will assist as needed with dc plans/needs. Supervisor Pit And Auxiliaries: Tiffanie Houston MSN,RN,CM DCPIA - Discharge Planning Initial Assessment Updated by [email or web address]: Tiffanie Houston on 02/23/20 1:41 pm * Is the patient Alert and Oriented? Yes * How many steps to enter\exit or inside your home? 4/0 * PCP Juan * [facility] [place] * Preadmission Environment Home with Family * ADLs Independent * Equipment Cane Grab Bars Rolling Walker Shower Chair Walker * List name and contact numbers for known caregivers / representatives who currently or will assist patient after discharge: Annalee Mother [phone] * Verbal permission to speak to the caregivers and representatives has been obtained from the patient. Yes * Community resources currently utilized None * Additional services required to return to the preadmission environment? Yes * Can the patient safely return to the preadmission environment? Yes * Has this patient been hospitalized within the prior 30 days at any hospital? No Coverage Notice Reviewer: [id number] - Tiffanie Houston Notice Issued Date-Time: 02/23/2020 13:30 Notice Type: Patient Choice Letter Notice Delivered To: Patient Relationship to Patient: Pipe Chipper Name: Delivery Method: HAND - Hand Delivered Kelsie Days: Prior Verbal Notification: Recipient Understood Notice: Yes Recipient Signature: Yes Med Rec Note Co-signed by Attending: Coverage Notice Comment: Choice signed for [facility] in [place], [place], IP rehab at [facility], and [facility] Last DP export: 03/02/20 9:20 am Patient Name: GERALDINE HOWELL Page [phone] at 1140 All edits/amendments must be made on the electronic document DICTATION DATE: 03/02/201138 SHIP ERECTOR: BERYL 03/02/20 113 RPT#: [id number] DC DATE: STATUS: ADM IN [facility] [address] [place] [address] END OF REPORT
[2020-03-02] MEDS ORDERED: CATAPRES TTS-20.2 MG TRANSDERM (11:55)
[2020-03-02] MEDS ORDERED: BETADINE OINTMENT TP ×2 (11:56)
[2020-03-02] MEDS ORDERED: MUPIROCIN22 GM NASAL (11:56)
[2020-03-02] MEDS ORDERED: COLACE100 MG PO (11:57)
[2020-03-02] MEDS ORDERED: FLORAJEN3 CAPS460 MG PO (11:57)
[2020-03-02] MEDS ORDERED: SINGULAIR10 MG PO (11:57)
[2020-03-02] MEDS ORDERED: METOPROLOL TART50 MG PO (11:59)
[2020-03-02] MEDS ORDERED: ALBUTEROL2.5 MG/3 M UPD (11:59)
--- NOTE | 2020-03-02 14:46 | NUR ---
Rehab Note- Continued to follow the patient during his acute hospital stay. Hs confusion is clearing and realizes he was confused and is participating in therapy. Spoke with Dr Harriet Browning's nurse and will accept the patient when ready for discharge from the acute hospital. Thank you for this referral! Amie Wright RN Clinical Liaison, [facility] Rehab
--- NOTE | 2020-03-02 16:32 | NUR ---
1200 PT ATE 100% LUNCH PT OK TO DC TO REHAB WHEN AVAILABLE, ABLE TO REPOSITION SELF AND DENIES ALL NEEDS
--- NOTE | 2020-03-02 17:26 | NUR ---
PT ATE 75% DINNER
--- NOTE | 2020-03-02 18:48 | NUR ---
REPORT CALLED, PT TO DC TO REHAB [id number]
--- NOTE | 2020-03-02 19:06 | NUR ---
PT DCD TO REHAB
--- NOTE | 2020-03-03 09:56 | MORECARE ---
CASE MANAGEMENT DISCHARGE SUMMARY PATIENT: GERALDINE HOWELL UNIT: [id number] ADM DATE: 02/20/20 AGE: 54 : 67 SEX: M [facility] AUTHOR: DARIUS,DOC PHYSICIAN: REFERRING PHYSICIAN: NAVEED MIX MD DATE OF SERVICE: 03/03/20 Discharge Plan Patient Name: GERALDINE HOWELL Facility: [facility]:[place] : 1965 Planned Disposition: Inpatient Rehab Anticipated Discharge Date: 03/02/20 Discharge Date: 03/02/2020 Expected LOS: 11 Initial Reviewer: [id number] Initial Review Date: 02/21/2020 Generated: 03/03/20 10:56 am DCP- Discharge Planning Updated by [id number]: Karon Bravo on 03/02/20 9:[address] CM SPOKE W/ EBER, REHAB SCREENER AT 1630 03/01/2020. DISCUSSED PATIENT'S PRESENT STATUS AND HIS PROGRESS W/ PHYSICAL THERAPY TODAY. SHE WILL RE-EVAL IN THE AM. DCP- Discharge Planning Updated by [id number]: Karon Bravo on 03/01/20 1:[address] REHAB PRESCREEN COMPLETED TODAY. SCREENER DIDN'T FEEL HE WAS APPROPRIATE. PATIENT HAD PHYSICAL THERAPY EVAL 02/29/2020. HE WAS NOT COOPERATIVE AND CONFUSED. AWAIT PHYSICAL THERAPY TODAY. REPORTEDLY HE WAS COOPERATIVE TODAY W/ PT. AMBULATED 250 FEET BUT HAD TO STOP TO REST 3 TIMES. NURSE REPORTS MORE ALERT AND COOPERATIVE. WILL REQUEST REHAB EVAL AGAIN. DCP- Discharge Planning Updated by [id number]: Tiffanie Houston on 02/23/20 12:[address] Patient Name: GERALDINE HOWELL Admission Status: ER Accout number: [id number] Admission Date: 02-20-2020 : 1965 Admission Diagnosis:NON-ST ELEVATION (NSTEMI) MYOCARDIAL INFARCTION Attending: NAVEED MIX Current LOS: 3 Anticipated DC Date: Planned Disposition: Primary Insurance: MEDICARE A & B Discharge Planning Comments: CM met with patient to complete initial dc planning assessment. CM educated patient on the CM role and verbal consent given by patient to complete assessment. CM verified patient's address, phone number, and emergency contact phone numbers. Patient lives at home with his mother. 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 At discharge patient plans to return home and feels this is a safe discharge. 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 HALLIE signed for [facility] for [address] [place] [address], IP rehab at [facility], and [facility]. Pt has a can, walker, shower chair at home. Pt drives to dialysis MWF in [place]. Patient denies other known discharge needs at this time. Transportation provider at discharge will be . CM will continue to follow and will assist as needed with dc plans/needs. Carding Supervisor: Tiffanie Houston MSN,RN,CM DCPIA - Discharge Planning Initial Assessment Updated by [email or web address]: Tiffanie Houston on 02/23/20 1:41 pm * Is the patient Alert and Oriented? Yes * How many steps to enter\exit or inside your home? 4/0 * PCP Juan * [facility] [place] * Preadmission Environment Home with Family * ADLs Independent * Equipment Cane Grab Bars Rolling Walker Shower Chair Walker * List name and contact numbers for known caregivers / representatives who currently or will assist patient after discharge: Annalee Mother [phone] * Verbal permission to speak to the caregivers and representatives has been obtained from the patient. Yes * Community resources currently utilized None * Additional services required to return to the preadmission environment? Yes * Can the patient safely return to the preadmission environment? Yes * Has this patient been hospitalized within the prior 30 days at any hospital? No Coverage Notice Reviewer: [id number] - Tiffanie Houston Notice Issued Date-Time: 02/23/2020 13:30 Notice Type: Patient Choice Letter Notice Delivered To: Patient Relationship to Patient: Spice Cleaner Name: Delivery Method: HAND - Hand Delivered Kelsie Days: Prior Verbal Notification: Recipient Understood Notice: Yes Recipient Signature: Yes Med Rec Note Co-signed by Attending: Coverage Notice Comment: Choice signed for [facility] in [place], [place], IP rehab at [facility], and [facility] Reviewer: [id number] Lisa Bravo Notice Issued Date-Time: 03/02/2020 16:00 Notice Type: IM Discharge Notice Notice Delivered To: Patient Relationship to Patient: Self Spice Cleaner Name: Delivery Method: HAND - Hand Delivered Kelsie Days: Prior Verbal Notification: Recipient Understood Notice: Yes Recipient Signature: Yes Med Rec Note Co-signed by Attending: Coverage Notice Comment: DISCHARGE IMM SERVED. ORIGINAL COPY TO THE PATIENT AND ORIGINAL COPY TO THE CHART. Last DP export: 03/02/20 10:40 am Patient Name: GERALDINE HOWELL Page 73651 at 0956 All edits/amendments must be made on the electronic document DICTATION DATE: 03/03/20955 OSTOMY CARE NURSE: BERYL 03/03/2056 RPT#: [id number] DC DATE:03/02/20 STATUS: DIS IN [facility] [address] [place] [address] END OF REPORT
== END 2020-03-02 19:06 | DRG 233 ==
LOC: D.ER 22:26 → D.M2 23:06 → D.CVICU 23:06 → D.M2 02-23 22:04 → D.CVICU 02-24 12:41
PROVIDERS: Family Medicine; Internal Medicine Cardiovascular Disease; Thoracic Surgery (Cardiothoracic Vascular Surgery); ADMIT Family Medicine; ATTEND Family Medicine
PROC: B2151ZZ Fluoroscopy of Left Heart using Low Osmolar Contrast (ICD-10-PCS; 2020-02-23)
PROC: 4A023N7 Measurement of Cardiac Sampling and Pressure, Left Heart, Percutaneous Approach (ICD-10-PCS; 2020-02-23)
PROC: B2111ZZ Fluoroscopy of Multiple Coronary Arteries using Low Osmolar Contrast (ICD-10-PCS; principal; 2020-02-23 09:00)
PROC: 02100Z9 Bypass Coronary Artery, One Artery from Left Internal Mammary, Open Approach (ICD-10-PCS; 2020-02-25)
PROC: B24BZZ4 Ultrasonography of Heart with Aorta, Transesophageal (ICD-10-PCS; 2020-02-25)
DX: I21.4 Non-ST elevation (NSTEMI) myocardial infarction (principal); J96.01 Acute respiratory failure with hypoxia; N18.6 End stage renal disease; J69.0 Pneumonitis due to inhalation of food and vomit; J44.1 Chronic obstructive pulmonary disease with (acute) exacerbation; F17.203 Nicotine dependence unspecified, with withdrawal; I73.9 Peripheral vascular disease, unspecified; I10 Essential (primary) hypertension; E83.39 Other disorders of phosphorus metabolism; E87.5 Hyperkalemia; E83.42 Hypomagnesemia; I12.9 Hypertensive chronic kidney disease with stage 1 through stage 4 chronic kidney disease, or unspecified chronic kidney disease; K21.9 Gastro-esophageal reflux disease without esophagitis; J30.9 Allergic rhinitis, unspecified; R05 Cough; E78.5 Hyperlipidemia, unspecified; D50.9 Iron deficiency anemia, unspecified; M19.90 Unspecified osteoarthritis, unspecified site; Z99.2 Dependence on renal dialysis

== ENCOUNTER 2020-03-02 19:20 | Inpatient (IN) | payer MEDICARE ==
[~2020-03-02] VITALS: Ht 167.6 cm; Wt 69.2 kg
[~2020-03-02 19:20] MED LIST changes: +ALBUTEROL2.5 MG/3 M UPD; +BAYER CHEWABLE81 MG PO; +BENTYL 20 MG TA20 MG PO; +BETADINE OINTMENT TP; +CATAPRES TTS-20.2 MG TRANSDERM; +COLACE100 MG PO; +FLORAJEN3 CAPS460 MG PO; +FUROSEMIDE40 MG PO; +GABAPENTIN100 MG PO; +HYDRALAZINE HCL25 MG PO; +HYDROCODON-ACE1 EAC7 PO; +LIPITOR20 MG PO; +LISINOPRIL40 MG PO; +METOPROLOL TART50 MG PO; +MUPIROCIN22 GM NASAL; +NORMODYNE / TR200 MG PO; +NORVASC5 MG PO; +PLAVIX75 MG PO; +RENA-VITE TABL0.8 MG PO; +SINGULAIR10 MG PO; +TEMAZEPAM30 MG PO
[2020-03-02 21:45] VITALS: BP 166/74
--- NOTE | 2020-03-03 03:47 | NUR ---
PT A&O, IN BED AROUSES EASILY TO VOICE, NO NEEDS NOTED, FALL PRECAUTIONS IN PLACE, FLUIDS/CALL LIGHT WITHIN REACH, NEW ADMIT, TRANSFERS SELF WELL,SBA ONLY
[2020-03-03 05:58] LABS: BASOPHILS 0.3 % (0-2); EOSINOPHILS 5.2 % (0-7); HEMATOCRIT 29.5 % (42.0-54.0); HEMOGLOBIN 9.2 g/dL (13.5-17.5); IMMATURE GRANULOCYTES 1.6 % (0-5); LYMPHOCYTES 11.6 % (15-50); MCH 29.9 pg (26.0-34.0); MCHC 31.2 g/dL (31.0-37.0); MCV 95.8 fL (80.0-100.0); MEAN PLATELET VOLUME 8.8 fL (7.4-10.4); MONOCYTES 8.8 % (2-11); NEUTROPHILS 72.5 % (40-80); RBC 3.08 10x6/uL (4.20-6.10); RDW 17.6 % (11.5-14.5); WBC 13.8 10x3/uL (4.8-10.8)
[2020-03-03 06:07] LABS: ANION GAP 16.4 mmol/L (8-16); CALCIUM 10.2 mg/dL (8.5-10.1); CARBON DIOXIDE 27.3 mmol/L (21.0-32.0); CREATININE - SERUM 8.3 mg/dL (0.6-1.3); POTASSIUM - SERUM 4.7 mmol/L (3.5-5.1)
[2020-03-03 06:10] LABS: PLATELET COUNT 265 10x3/uL (130-400)
[2020-03-03 06:36] VITALS: BP 151/65; BMI 26.5
--- NOTE | 2020-03-03 08:00 | NUR ---
SITTING UP IN BED EATING BREAKFAST, DENIES ANY NEEDS AT THIS TIME, C/L AND FLUIDS IN REACH.
[2020-03-03 08:18] VITALS: BP 151/65
--- NOTE | 2020-03-03 12:00 | NUR ---
SITTING UP IN BED EATING LUNCH, DENIES ANY NEEDS AT THIS TIME, C/L AND FLUIDS IN REACH.
[2020-03-03 12:14] VITALS: BP 107/68
[2020-03-03 12:45] VITALS: Ht 167.6 cm; Wt 69.2 kg
--- NOTE | 2020-03-03 20:47 | NUR ---
PT UP IN ROOM, NO NEEDS NOTED, FLUIDS/CALL LIGHT WITHIN REACH
[2020-03-04 00:20] VITALS: BP 161/68
[2020-03-04 06:04] VITALS: BP 162/76
--- NOTE | 2020-03-04 08:00 | NUR ---
STAFF INFORMED CHARGE NURSE PT WANTED TO LEAVE AMA. THIS NURSE TALKED TO PT AND MAKE SURE HE DID WANT TO GO AMA AND UNDERSTOOD WHAT LEAVING AMA MEANT. HE WAS WALKER X4 AND STATED UNDERSTANDING. PT SIGNED AMA FORM AND WAS SIGNED BY TWO NURSES
--- NOTE | 2020-03-04 08:00 | NUR ---
UP WITH THERAPY EATING BREAKFAST, DENIES ANY NEEDS AT THIS TIME.
--- NOTE | 2020-03-04 10:40 | RHP ---
PATIENT: GERALDINE HOWELL MEDICAL RECORD: [id number] ACCOUNT: [id number] [facility] [birth year] ADMISSION DATE: 03/02/20 REHABILITATION HISTORY AND PHYSICAL EXAMINATION POST ADMISSION PHYSICIAN EXAMINATION ADMITTING DIAGNOSIS: Critical illness myopathy. HISTORY OF PRESENT ILLNESS: The patient is status post coronary artery bypass grafting, got a history of oropharyngeal dysphagia, pulmonary edema, end-stage renal dialysis is on hemodialysis. He is a 54-year-old gentleman who arrived via ambulance after experiencing shortness of breath and chest pain. He has got a history of chronic obstructive pulmonary disease and has frequent exacerbations. The patient was resting comfortably, but was pretty short of breath. His pulse ox was low at that time. He did respond to some nebulizer treatments. The patient had been seen at [facility] for nonhealing wounds of his left foot and toes. He is status post amputation of his second toe on his left foot. States he underwent a stent to his left leg post his amputation. He has a nonhealing wound to his great toe. EKG showed a sinus tachycardia with a right bundle branch block. Cardiology was concerned for non-ST segment elevation myocardial infarction. CTA was negative for PE, but was suggestive of pulmonary congestion. He was found to have an [place] with severe left main coronary artery stenosis, moderately diminished left ventricular function. He had a cardiovascular surgeon and underwent coronary artery bypass grafting. He has been followed by nephrology, pulmonary and cardiovascular surgery during his stay. He had some postop confusion, but this has been slowly clearing. He had been seen in physical and occupational and speech therapy throughout his stay. He needs to be monitored closely with telemetry. He is a new coronary artery bypass patient. He has required some blood products. He has had some mental status changes, acute confusion. He is on end-stage renal dialysis. He had some medication adjustments. He has had some low blood sugars, electrolyte protocol is in place. He has got proximal muscle weakness, balance deficits, decreased activity tolerance, impaired mobility, gait disturbance. He has got limited safety awareness. He fatigues easily, inability to care for himself. These are all barriers to his discharge home. He was independent with ADLs and mobility prior to this. Currently set up for mod assist for ADLs and mod assist for mobility with supplemental O2. He has got acute confusion that has been clearing. He and his family would like for him to return home at his prior level of functioning. COMORBIDITIES: In this patient include oropharyngeal dysphagia, pericardial effusion, chronic renal failure, elevated LFTs, elevated lipase, pneumonia, COPD, hypophosphatemia, hyperlipidemia, allergic rhinitis, hyperkalemia, low magnesium, low sodium. He has had a history of CVA. He has got tobacco use. He has got peripheral vascular disease with nonhealing wounds, leukocytosis. PAST MEDICAL HISTORY: Significant for CVA in the past. He has got history of hypertension, coronary artery disease with stents, angioplasty and coronary artery bypass grafting, COPD, skin cancers, joint pain, tobacco use, end-stage renal disease. PAST SURGICAL HISTORY: Includes gallbladder, tonsillectomy, adenoidectomy, he has got dialysis access and skin cancer to his ear. ALLERGIES: PENICILLIN, SULFA AND SUDAFED. HISTORY AND PHYSICAL [id number] GERALDINE HOWELL CURRENT MEDICATIONS: Include Catapres TTS 2 patch that he applies weekly, Floranex daily, he is on Betadine to apply topically as needed, Zoloft 100 mg daily, furosemide 40 mg daily, folic acid 1 tab daily, Plavix 75 mg daily, aspirin 81 mg daily, Protonix 40 mg daily, Bactroban nasal to apply b.i.d., Singulair 10 mg at bedtime, metoprolol 50 mg b.i.d., lisinopril 40 mg b.i.d., Apresoline 25 mg b.i.d., Neurontin 100 mg b.i.d., Colace 100 mg b.i.d., Bentyl 20 mg b.i.d., atorvastatin 20 mg at bedtime, amlodipine 5 mg b.i.d., Restoril 30 mg at bedtime, Ativan 1 mg b.i.d., [place] 5/325 one tab every 6 hours p.r.n., he uses clonidine p.r.n. elevated systolic blood pressure greater than 160 and Ventolin updrafts as needed. HABITS: Does have a history of tobacco use. FAMILY HISTORY: Noncontributory. SOCIAL HISTORY: The patient hopes to return back home and get back to his prior level of functioning. REVIEW OF SYSTEMS: GENERAL: Does complain of weakness and fatigue. HEENT: Denies cold, cough, or congestion. CARDIOVASCULAR: Denies any chest pain. PHYSICAL EXAMINATION: VITAL SIGNS: Stable, afebrile. GENERAL: A well-developed gentleman, older than stated age appearing. HEENT: Normocephalic and atraumatic. Mucosa moist. NECK: Supple. No lymphadenopathy. LUNGS: Clear in upper soler, decreased breath sounds in the bases. HEART: Regular rate and rhythm. No murmurs, rubs or gallops. ABDOMEN: Soft, benign, and nondistended. Positive bowel sounds times 4. EXTREMITIES: No clubbing, cyanosis, but he does have some nonhealing areas to his feet. NEUROLOGIC: He has got proximal muscle weakness. LABORATORY DATA: His white count is 13,000, H&H of 9.2 and 29.5 and platelet count is 265. Sodium 133, potassium 4.7, BUN and creatinine of 55 and 8.3 and blood sugar is noted to be 104. ASSESSMENT: This is a 54-year-old gentleman admitted to the rehab with a working diagnosis of critical illness myopathy. The patient has potential to make improvement. We instituted the following multidisciplinary therapies including, but not limited to physical, occupational, respiratory, speech, nutritional services, prosthetics and orthotics. Given his complex medical condition and risks for more complications, rehabilitation services cannot be provided at a low level of care such as half-way facility. PLAN: 1. Admit to [facility] for inpatient therapy to include the following disciplines; A. Physical therapy to improve gait, all transfer skills and bed mobility to a modified independent level. B. Occupational therapy to improve activities of daily living. C. Case management to help with discharge planning and placement options. HISTORY AND PHYSICAL [id number] GERALDINE HOWELL Nutrition to assist with nutritional needs. E. Rehabilitation nursing to assist in monitoring the patient's underlying medical conditions and to assist with any type of bowel or bladder management. 2. The patient's current medication and medical care will be continued. 3. The patient will be placed on standard fall precautions. 4. The patient's estimated length of stay is approximately 7-10 days. 5. We will discuss the patient during care team staff meeting this week. TRANSINT:[id number] Voice Confirmation ID: [id number] DOCUMENT ID: [id number] COREY notes whether there has been none or any medical/functional change since admission: - No change since preadmission screen. COREY attests patient continues to be appropriate for IRF: - Continues to be appropriate. SURJIT DE GUZMAN MD at 1040 CC: [id number] DICTATION DATE: 03/03/20 1012 CHILD PSYCHOLOGIST: 03/03/20 1215 ADM IN [facility] [address] [id number]
--- NOTE | 2020-03-04 11:20 | NUR ---
PATIENT D/C TO HOME VIA W/C WITH FAMILY MEMBER, PATIENT HAS ALL PERSONAL BELONGINGS. REVIEWED MEDICATIONS, PT. REFUSED ANY MEDS TO BE CALLED INTO PHARMACY, STATED THEY HAD EVERYTHING THEY NEEDED AT HOME.
== END 2020-03-04 12:01 | disposition left against medical advice (07) | DRG 91 ==
LOC: D.REHAB 19:20
PROVIDERS: ADMIT Emergency Medicine; ATTEND Emergency Medicine
DX: G72.81 Critical illness myopathy (principal); N18.6 End stage renal disease; J18.1 Lobar pneumonia, unspecified organism; J96.01 Acute respiratory failure with hypoxia; I21.4 Non-ST elevation (NSTEMI) myocardial infarction; I13.2 Hypertensive heart and chronic kidney disease with heart failure and with stage 5 chronic kidney disease, or end stage renal disease; I31.3 Pericardial effusion (noninflammatory); E87.1 Hypo-osmolality and hyponatremia; F17.203 Nicotine dependence unspecified, with withdrawal; I50.9 Heart failure, unspecified; Z99.2 Dependence on renal dialysis; R13.12 Dysphagia, oropharyngeal phase; J44.9 Chronic obstructive pulmonary disease, unspecified; I25.10 Atherosclerotic heart disease of native coronary artery without angina pectoris; I73.9 Peripheral vascular disease, unspecified; E87.5 Hyperkalemia; K21.9 Gastro-esophageal reflux disease without esophagitis; J30.9 Allergic rhinitis, unspecified; E78.5 Hyperlipidemia, unspecified; D50.9 Iron deficiency anemia, unspecified

== ENCOUNTER → 2020-03-22 14:51 | Outpatient (CLI) | payer MEDICARE ==
[2020-03-03 12:45] VITALS: BMI 26.5
[2020-03-22 15:25] LABS: BASOPHILS 0.4 % (0-2); EOSINOPHILS 4.9 % (0-7); HEMATOCRIT 30.5 % (42.0-54.0); HEMOGLOBIN 9.4 g/dL (13.5-17.5); LYMPHOCYTES 18.2 % (15-50); MCH 30.7 pg (26.0-34.0); MCHC 30.8 g/dL (31.0-37.0); MCV 99.7 fL (80.0-100.0); MEAN PLATELET VOLUME 8.8 fL (7.4-10.4); MONOCYTES 10.6 % (2-11); NEUTROPHILS 65.9 % (40-80); PLATELET COUNT 185 10x3/uL (130-400); RBC 3.06 10x6/uL (4.20-6.10); RDW 18.1 % (11.5-14.5); WBC 6.9 10x3/uL (4.8-10.8)
[2020-03-22 15:40] LABS: ALBUMIN 3.1 g/dL (3.4-5.0); ANION GAP 13.2 mmol/L (8-16); BILIRUBIN - TOTAL 0.32 mg/dL (0.2-1.3); CALCIUM 8.4 mg/dL (8.5-10.1); CARBON DIOXIDE 29.9 mmol/L (21.0-32.0); CREATININE - SERUM 4.2 mg/dL (0.6-1.3); POTASSIUM - SERUM 5.1 mmol/L (3.5-5.1); PROTEIN - SERUM 7.8 g/dL (6.4-8.2)
== END | disposition home or self-care (01) ==
LOC: D.LAB 14:51
PROVIDERS: ATTEND Thoracic Surgery (Cardiothoracic Vascular Surgery)
DX: Z95.1 Presence of aortocoronary bypass graft (principal); I25.10 Atherosclerotic heart disease of native coronary artery without angina pectoris

== ENCOUNTER → 2020-06-08 11:24 | Outpatient (CLI) | payer MEDICARE ==
[2020-03-03 12:45] VITALS: BMI 26.5
== END | disposition home or self-care (01) ==
LOC: D.HCCECHO 11:24
PROVIDERS: ATTEND Internal Medicine Cardiovascular Disease
DX: I25.10 Atherosclerotic heart disease of native coronary artery without angina pectoris (principal)

== ENCOUNTER 2020-10-16 11:35 | Inpatient (IN) | payer MEDICARE ==
[~2020-10-16] VITALS: Ht 167.6 cm; Wt 70.5 kg
[~2020-10-16 11:35] MED LIST changes: +ADALAT CC90 MG PO; +CARDURA4 MG PO; +CATAPRES TTS-20.2 MG TD; +HYDRALAZINE HCL50 MG PO; +ISOSORBIDE MONO60 M1 PO; +LOPRESSOR25 MG PO; +NORVASC10 MG PO; +PROTONIX40 MG PO; +SENSIPAR60 MG PO; +WELLBUTRIN XL150 M1 PO
--- NOTE | 2020-10-16 12:08 | NUR ---
RIGHT EJ INSERTED BY Mir CORDERO APN (18 GA.)
[2020-10-16 12:24] LABS: APTT 36.3 SECONDS (22.8-39.4); PROTIME 21.1 SECONDS (11.6-15.0)
[2020-10-16 12:30] LABS: INFLUENZA TYPE A NEGATIVE (NEGATIVE); INFLUENZA TYPE B NEGATIVE (NEGATIVE)
[2020-10-16 12:31] LABS: SARS-CoV-2 ANTIGEN NEGATIVE- SARS-COV-2 (NEGATIVE)
[2020-10-16 12:36] LABS: HEMATOCRIT 24.1 % (42.0-54.0); LYMPHOCYTES 5.9 % (15-50); MCH 31.1 pg (26.0-34.0); MCHC 33.2 g/dL (31.0-37.0); MCV 93.8 fL (80.0-100.0); MEAN PLATELET VOLUME 9.3 fL (7.4-10.4); NEUTROPHILS 88.8 % (40-80); RBC 2.57 10x6/uL (4.20-6.10); RDW 18.1 % (11.5-14.5); WBC 17.7 10x3/uL (4.8-10.8)
[2020-10-16 12:40] LABS: ALBUMIN 2.9 g/dL (3.4-5.0); ALKALINE PHOSPHATASE 70 U/L (30-120); ALT (SGPT) 96 U/L (10-68); BILIRUBIN - TOTAL 0.59 mg/dL (0.2-1.3); CALC OSMOLALITY 280 mosm/kg (275-300); CALCIUM 9.6 mg/dL (8.5-10.1); CARBON DIOXIDE 20.8 mmol/L (21.0-32.0); CHLORIDE - SERUM 90 mmol/L (98-107); CKMB 0.3 U/L (0.0-3.6); CREATINE KINASE 64 UL (21-232); CREATININE - SERUM 14.7 mg/dL (0.6-1.3); GLUCOSE 91 mg/dL (74-106); PROTEIN - SERUM 7.1 g/dL (6.4-8.2); SODIUM 130 mmol/L (136-145); UREA NITROGEN 69 mg/dL (7-18); eGFR NON AFRICAN AMERICAN 4 mL/min (90-120)
[2020-10-16 12:43] LABS: PRO BNP > 125 pg/mL (0-125)
[2020-10-16 12:45] LABS: POTASSIUM - SERUM 6.5 mmol/L (3.5-5.1)
[2020-10-16 12:46] LABS: TROPONIN-I 0.715 ng/mL (0.000-0.060)
[2020-10-16 12:54] LABS: PLATELET COUNT 132 10x3/uL (130-400)
[2020-10-16 14:01] VITALS: BP 188/84
[2020-10-16 14:53] VITALS: BP 132/66
--- NOTE | 2020-10-16 15:02 | NUR ---
PT TO ROOM ON CART FROM ER. DEEPIKA HELP ME. FISTULA TO LEFT ARM NOTED. IV INFUSING VIA RIGHT EJ. OXYGEN AT 2LNC. RESTLESS AND BED ALARM SET.
--- NOTE | 2020-10-16 18:40 | NUR ---
PT TO DIALYSIS VIA WHEELCHAIR.
[2020-10-16 18:56] LABS: CKMB 0.8 U/L (0.0-3.6); CREATINE KINASE 66 UL (21-232)
[2020-10-16 18:58] LABS: TROPONIN-I 0.969 ng/mL (0.000-0.060)
[2020-10-16 22:02] VITALS: BP 156/82
--- NOTE | 2020-10-16 23:03 | NUR ---
PT ARRIVED AT UNIT @ 2250 FROM DIALYSIS. 3.5 L WERE REMOVED. LAB REPORTED CRITICAL, GRAM + COCCI IN BLOOD CULTURE. REPORTED TO PASHA DURAN APN. NO NEW ORDERS GIVEN. WILL CONT TO MONITOR.
--- NOTE | 2020-10-16 23:15 | NUR ---
REPORT RECEIVED WILL CONT POC. PT A&O, UP IN BED WATCHING TV. NO S/S OF DISTRESS OBSERVED. RR EVEN & UNLABORED AT THIS TIME. PT COMPLAINS OF MUSCLE CRAMPS. DENIES NEEDS AT THIS TIME. BED LOCKED AND LOWERED, CL IN REACH. ASSESSMENT COMPLETED AT THIS TIME. WILL CONT TO MONITOR.
[2020-10-16 23:25] VITALS: BP 127/55
[2020-10-17] VITALS (7 sets, daily range): BP systolic 99–134; BP diastolic 55–67; Ht 167.6 cm; Wt 70.5 kg
[2020-10-17 01:17] LABS: CKMB 0.8 U/L (0.0-3.6); CREATINE KINASE 57 UL (21-232); TROPONIN-I 0.876 ng/mL (0.000-0.060)
[2020-10-17 05:52] LABS: BASOPHILS 0.1 % (0-2); EOSINOPHILS 0 % (0-7); HEMATOCRIT 23.8 % (42.0-54.0); HEMOGLOBIN 7.6 g/dL (13.5-17.5); IMMATURE GRANULOCYTES 0.3 % (0-5); LYMPHOCYTE ABS# 1.01 10x3/uL (1.32-3.57); LYMPHOCYTES 5.8 % (15-50); MCH 30.2 pg (26.0-34.0); MCHC 31.9 g/dL (31.0-37.0); MCV 94.4 fL (80.0-100.0); MEAN PLATELET VOLUME 9.6 fL (7.4-10.4); MONOCYTES 6.2 % (2-11); NEUTROPHIL ABS# 15.26 10x3/uL (1.78-5.38); NEUTROPHILS 87.6 % (40-80); PLATELET COUNT 126 10x3/uL (130-400); RBC 2.52 10x6/uL (4.20-6.10); WBC 17.4 10x3/uL (4.8-10.8)
[2020-10-17 06:11] LABS: INR 1.64 (0.85-1.17)
[2020-10-17 06:16] LABS: APTT 50.5 SECONDS (22.8-39.4)
[2020-10-17 06:40] LABS: ALBUMIN 2.7 g/dL (3.4-5.0); ALKALINE PHOSPHATASE 67 U/L (30-120); BILIRUBIN - TOTAL 0.62 mg/dL (0.2-1.3); CHLORIDE - SERUM 96 mmol/L (98-107); CKMB 0.7 U/L (0.0-3.6); CREATINE KINASE 43 UL (21-232); GLUCOSE 89 mg/dL (74-106); LDH 274 U/L (85-227); MAGNESIUM - SERUM 2.2 mg/dL (1.8-2.4); PHOSPHOROUS 8.6 mg/dL (2.5-4.9); PROTEIN - SERUM 6.9 g/dL (6.4-8.2); SODIUM 135 mmol/L (136-145)
[2020-10-17 06:43] LABS: CALC OSMOLALITY 277 mosm/kg (275-300); UREA NITROGEN 37 mg/dL (7-18)
[2020-10-17 06:44] LABS: ALT (SGPT) 211 U/L (10-68); CARBON DIOXIDE 28.7 mmol/L (21.0-32.0); FERRITIN 2920 ng/mL (3-244); POTASSIUM - SERUM 4.5 mmol/L (3.5-5.1); TROPONIN-I 0.762 ng/mL (0.000-0.060); eGFR NON AFRICAN AMERICAN 7 mL/min (90-120)
[2020-10-17 06:57] LABS: C-REACTIVE PROTEIN 33.1 mg/dL (0.0-0.9)
[2020-10-17 09:46] LABS: ERYTHROCYTE SEDIMENTATION RATE 78 mm/hr (0-20)
[2020-10-18 05:24] VITALS: BP 136/60
[2020-10-18 07:01] LABS: BASOPHILS 0 % (0-2); EOSINOPHILS 0 % (0-7); HEMATOCRIT 24.8 % (42.0-54.0); HEMOGLOBIN 7.9 g/dL (13.5-17.5); IMMATURE GRANULOCYTES 0.4 % (0-5); LYMPHOCYTE ABS# 0.79 10x3/uL (1.32-3.57); LYMPHOCYTES 5.7 % (15-50); MCH 29.8 pg (26.0-34.0); MCHC 31.9 g/dL (31.0-37.0); MCV 93.6 fL (80.0-100.0); MEAN PLATELET VOLUME 9.9 fL (7.4-10.4); MONOCYTES 7.8 % (2-11); NEUTROPHIL ABS# 11.99 10x3/uL (1.78-5.38); NEUTROPHILS 86.1 % (40-80); RBC 2.65 10x6/uL (4.20-6.10); RDW 17.7 % (11.5-14.5); WBC 13.9 10x3/uL (4.8-10.8)
[2020-10-18 07:02] LABS: ALBUMIN 2.7 g/dL (3.4-5.0); ANION GAP 14.7 mmol/L (8-16); BILIRUBIN - TOTAL 0.61 mg/dL (0.2-1.3); CALCIUM 9.9 mg/dL (8.5-10.1); CARBON DIOXIDE 27.2 mmol/L (21.0-32.0); CREATININE - SERUM 9.5 mg/dL (0.6-1.3); MAGNESIUM - SERUM 2.2 mg/dL (1.8-2.4); PHOSPHOROUS 8.2 mg/dL (2.5-4.9); POTASSIUM - SERUM 3.9 mmol/L (3.5-5.1); PROTEIN - SERUM 7.1 g/dL (6.4-8.2)
[2020-10-18 07:05] LABS: PLATELET COUNT 171 10x3/uL (130-400)
[2020-10-18 08:00] VITALS: BP 136/61
--- NOTE | 2020-10-18 10:00 | NUR ---
NOTIFIED PASHA OF PATIENT D-DIMER AND MRSA RESULTS.
--- NOTE | 2020-10-18 10:17 | NUR ---
ELEVATED D-DIMER CALLED TO DR. FLOOD. NO NEW ORDERS GIVEN AT THIS TIME.
[2020-10-18 12:00] VITALS: BP 141/61
[2020-10-18 15:00] VITALS: BP 132/59
--- NOTE | 2020-10-18 19:50 | NUR ---
REPORT RECEIVED, WILL CONT POC. PT A&O. DIALYZING IN ROOM. BED LOCKED AND LOWERED, CL IN REACH. DENIES NEEDS AT THIS TIME. NO S/S OF DISTRESS OBSERVED. RR EVEN & UNLABORED ON RA. ASSESSMENT TO BE COMPLETED AFTER DIALYSIS COMPLETE.
[2020-10-18 22:11] VITALS: BP 120/52
[2020-10-18 23:47] VITALS: BP 104/41
--- NOTE | 2020-10-18 23:53 | NUR ---
PTS R EJ LEAKING WHILE INFUSING DOXY. PT REFUSES ANOTHER IV. SPOKE WITH PASHA DURAN APN. HOLDING IV MEDS UNTIL RENAL CAN BE CONSULTED IN THE AM.
[2020-10-19 04:54] VITALS: BP 139/57
[2020-10-19 06:09] LABS: ALBUMIN 2.8 g/dL (3.4-5.0); ANION GAP 12.2 mmol/L (8-16); BILIRUBIN - TOTAL 0.67 mg/dL (0.2-1.3); CALCIUM 9.5 mg/dL (8.5-10.1); CARBON DIOXIDE 30.3 mmol/L (21.0-32.0); MAGNESIUM - SERUM 2.1 mg/dL (1.8-2.4); POTASSIUM - SERUM 3.5 mmol/L (3.5-5.1); PROTEIN - SERUM 7.6 g/dL (6.4-8.2)
[2020-10-19 06:10] LABS: CREATININE - SERUM 6.7 mg/dL (0.6-1.3)
[2020-10-19 06:13] LABS: BASOPHILS 0 % (0-2); EOSINOPHILS 0 % (0-7); HEMOGLOBIN 8.2 g/dL (13.5-17.5); IMMATURE GRANULOCYTES 0.3 % (0-5); LYMPHOCYTE ABS# 0.86 10x3/uL (1.32-3.57); LYMPHOCYTES 7.5 % (15-50); MCH 29.9 pg (26.0-34.0); MCHC 31.5 g/dL (31.0-37.0); MCV 94.9 fL (80.0-100.0); MEAN PLATELET VOLUME 9.3 fL (7.4-10.4); MONOCYTES 7.1 % (2-11); NEUTROPHIL ABS# 9.78 10x3/uL (1.78-5.38); NEUTROPHILS 85.1 % (40-80); PLATELET COUNT 198 10x3/uL (130-400); RBC 2.74 10x6/uL (4.20-6.10); RDW 17.8 % (11.5-14.5); WBC 11.5 10x3/uL (4.8-10.8)
--- NOTE | 2020-10-19 07:29 | NUR ---
AM ROUNDING DONE WITH PATIENT IN DROPLET ISOLATION FOR COVID PUI. ON HEART MONITOR SHOWING SR, HR 71. UP IN DOORWAY LOOKING OUT, ASKED HIM TO PLEASE CLOSE THE DOOR, HE DID. LEFT AVF WITH + BRUIT AND THRILL. RIGHT IJ INTACT WITH REPORT THAT IT IS LEAKING. WILL CHECK AND IF IT IS WILL REMOVE. ON EP, K+ IS 3.5, WILL COVER PER PROTOCL. CPOC.
[2020-10-19 08:42] VITALS: BP 146/57
[2020-10-19 11:18] VITALS: BP 144/56
--- NOTE | 2020-10-19 12:03 | NUR ---
RIGHT IJ PIV REMOVED WITH PATIENT YELLING OUT I SLOWLY REMOVED THE DRESSING. PRESSURE HELD. NO BLEEDING SEEN, ASKED THAT HE LAY FLAT X 15 MIN. PATIENT TO REFUSE THE CENTRAL LINE PLACEMENT. PAGE INTO DR WHITE TO LET HIM KNOW THAT AND TO SEE IF DIALYSIS CAN GIVEN THE VANC. DR FITZGERALD CALLED AND NOTIFIED THAT PATIENT IS REFUSING THE CENTRAL LINE PLACEMENT. I LEFT THIS ON HIS VOICEMAIL.
--- NOTE | 2020-10-19 14:33 | NUR ---
CALLED AND SPOKE TO FRANCISCO CAN APN FOR CLARIFICATION OF VANC DOSE SINCE PATIENT HAS REFUSED CVL. NEW ORDER RECEIVED.
[2020-10-19 15:51] VITALS: BP 117/83
--- NOTE | 2020-10-19 19:05 | NUR ---
REPORT RECEIVED, WILL CONT POC. A&O, LAYING IN BED. NO S/S OF DISTRESS OBSERVED. RR EVEN & UNLABORED ON RA. PT DENIES NEEDS AT THIS TIME. BED LOCKED AND LOWERED, CL IN REACH. ASSESSMENT COMPLETED AT THIS TIME. WILL CONT MONITOR.
[2020-10-19 19:47] VITALS: BP 134/63
[2020-10-20 05:45] VITALS: BP 141/57
[2020-10-20 06:29] LABS: BASOPHILS 0.1 % (0-2); EOSINOPHILS 0.1 % (0-7); HEMATOCRIT 24.1 % (42.0-54.0); HEMOGLOBIN 7.6 g/dL (13.5-17.5); IMMATURE GRANULOCYTES 0.6 % (0-5); LYMPHOCYTE ABS# 0.97 10x3/uL (1.32-3.57); LYMPHOCYTES 7.2 % (15-50); MCH 29.2 pg (26.0-34.0); MCHC 31.5 g/dL (31.0-37.0); MEAN PLATELET VOLUME 8.7 fL (7.4-10.4); MONOCYTES 12.2 % (2-11); NEUTROPHIL ABS# 10.78 10x3/uL (1.78-5.38); NEUTROPHILS 79.8 % (40-80); PLATELET COUNT 200 10x3/uL (130-400); RDW 17.8 % (11.5-14.5); WBC 13.5 10x3/uL (4.8-10.8)
[2020-10-20 06:30] LABS: MCV 92.7 fL (80.0-100.0)
--- NOTE | 2020-10-20 07:00 | NUR ---
received report. pt sitting in chair. resp even and unlabored. AAOx4. no distress noted. call light in reach. will continue plan of care
[2020-10-20 07:02] LABS: ALBUMIN 2.9 g/dL (3.4-5.0); ANION GAP 18.1 mmol/L (8-16); CALCIUM 9.7 mg/dL (8.5-10.1); CARBON DIOXIDE 24.7 mmol/L (21.0-32.0); CREATININE - SERUM 8.6 mg/dL (0.6-1.3); PHOSPHOROUS 7.9 mg/dL (2.5-4.9); POTASSIUM - SERUM 3.8 mmol/L (3.5-5.1); VANCOMYCIN - RANDOM 0.6 ug/mL (10.0-20.0)
[2020-10-20 07:29] VITALS: BP 130/55
--- NOTE | 2020-10-20 07:56 | NUR ---
PT ON EP. LABS WNL EXCEPT PHOS. PT WILL BE DIALYZED TODAY.
--- NOTE | 2020-10-20 07:59 | NUR ---
Nutrition Follow-up: PO4 elevated. HD MWF. Covid pending. Refused CVL. Diet: Renal No PO intake recorded Wt: 155# (10/17) Labs noted: Na 130, K+ 3.8, PO4 7.9, Alb 2.9 Meds noted: Florajen, Pepcid, Decadron, zinc sulfate, vit B1, vit C, vit D, electrolyte protocol -Encourage PO intake and honor food preferences within diet restrictions. -Need new wt if possible. -MD may consider PO4 binder 2/2 hyperphosphatemia. -RD follow-up: 10/24
--- NOTE | 2020-10-20 08:29 | NUR ---
SPUTUM SPECIMEN COLLECTED. SENT TO LAB
--- NOTE | 2020-10-20 09:50 | NUR ---
pt left unit for dialysis accompanied by hospital
--- NOTE | 2020-10-20 12:00 | NUR ---
pt returned to unit from dialysis. pulled off 1 L. nurse states pt refused to continue.
--- NOTE | 2020-10-20 15:29 | NUR ---
Camelia ALBA called dialysis and they stated they were unaware vancomycin was to be given with dialysis. Chelsey ALBA notified Sonia 10/19/2020 that vancomycin was to be given with dialysis. Sonia stated she would make a note of it. Camelia ALBA called Layne and explained vacomycin was not given and pt refuses treatment. pt also states he wants to go home. Layne stated she would call Dr. Kc and discuss
[2020-10-20 15:37] VITALS: BP 124/49
--- NOTE | 2020-10-20 16:41 | NUR ---
I have reviewed this patient and I concur with the Shift Assessment completed by the Licensed Practical Nurse today this shift.
--- NOTE | 2020-10-20 19:44 | NUR ---
APPROXIMATELY 1 HOUR INTO TREATMENT, PATIENT STARTS TO MOAN AND CRY OUT STATING HE WANTS TO END TREATMENT EARLY. DR LAWRENCE AT BEDSIDE AND PATIENT TELLS MD THAT HE IS BEING DISCHARGED TODAY. PATIENT ADAMANT THAT HE WILL GO HOME AND REFUSES TO CONTINUE TREATMENT. NEEDLES PULLED X 2 AND PATIENT REFUSED TO ALLOW NURSE TO HOLD PRESSURE SO NURSE MONITORED PATIENT HOLDING PRESSURE TILL BLEEDNG STOPPED. REPORT CALLED TO FLOOR NURSE.
[2020-10-20 20:44] VITALS: BP 130/59
--- NOTE | 2020-10-20 23:59 | NUR ---
PT DIFFICULT TO MANAGE. REFUSES IV, UNABLE TO ADMINISTER ABX. WALKS AROUND THE ROOM, WEAKNESS OBSERVED AND A FALL RISK. PT NOT RECEPTIVE TO FALL PRECAUTIONS. HOWEVER, DEMANDS X2 ASSIST TO THE RESTROOM. PT ASKED "WHO IS GOING TO BE STAYING IN MY ROOM TONIGHT". EDUCATED PT THAT WE DO NOT STAY AT THE BEDSIDE. FREQUENTLY UTALIZES CALL LIGHT DEMONSTRATING ATTENTION SEEKING BEHAVIOR. PT REMOVED DRESSING TO FISTULA, REFUSES TO LEET ANOTHER ONE BE APPLIED. NO S/S OF BLEEDING AT THIS TIME. REPORTED THAT PT REFUSED DIALYSIS AFTER 1L BEING REMOVED. NO DISTRESS. CL IN REACH. WILL CPOC.
[2020-10-21 01:14] VITALS: BP 131/56
[2020-10-21 07:55] LABS: BASOPHILS 0.1 % (0-2); EOSINOPHILS 0.1 % (0-7); HEMATOCRIT 20.6 % (42.0-54.0); IMMATURE GRANULOCYTES 0.6 % (0-5); LYMPHOCYTE ABS# 1.52 10x3/uL (1.32-3.57); LYMPHOCYTES 7.6 % (15-50); MCH 29.6 pg (26.0-34.0); MCV 92.4 fL (80.0-100.0); MEAN PLATELET VOLUME 8.7 fL (7.4-10.4); NEUTROPHIL ABS# 16.41 10x3/uL (1.78-5.38); NEUTROPHILS 82.6 % (40-80); PLATELET COUNT 187 10x3/uL (130-400); RBC 2.23 10x6/uL (4.20-6.10); RDW 17.8 % (11.5-14.5)
[2020-10-21 07:59] LABS: WBC 19.9 10x3/uL (4.8-10.8)
[2020-10-21 08:00] LABS: HEMOGLOBIN 6.6 g/dL (13.5-17.5)
[2020-10-21 08:12] LABS: ALBUMIN 2.7 g/dL (3.4-5.0); ANION GAP 20.8 mmol/L (8-16); BILIRUBIN - TOTAL 1.04 mg/dL (0.2-1.3); CALCIUM 9.3 mg/dL (8.5-10.1); CARBON DIOXIDE 23.2 mmol/L (21.0-32.0); CREATININE - SERUM 8.3 mg/dL (0.6-1.3); PHOSPHOROUS 7.7 mg/dL (2.5-4.9); PROTEIN - SERUM 6.8 g/dL (6.4-8.2)
[2020-10-21 08:40] VITALS: BP 136/63
--- NOTE | 2020-10-21 10:03 | NUR ---
PT AWAKE AND ORIENTED, HAS HIT HIS CALL LIGHT ABOUT 5-15 MINUTES FOR ASSITANCE DOING THINGS HE CAN DO HIMSELF. HE WALKS TO THE DOOR, OPENS IT, THEN YELLS THAT HE NEEDS ASSITANCE THE REST THE WAY TO THE BATHROOM. ASSISTANCE IS STANDBY. REFUSING I/V. REFUISNG TO DO DIAYLYSIS FOR ABX, UNABLE TO GIVE BLOOD D/T LINE REFUSAL. INFROM DRS OF NON COMPLIENCE.
[2020-10-21 11:44] VITALS: BP 124/50
--- NOTE | 2020-10-21 12:17 | NUR ---
PT ALERT AND ORIENTED, SITTINGON SIDE OF BED EATING LUNCH. DELIVERED PERSONAL ITEMS FROM HOME. CL IN REACH,SRX1
--- NOTE | 2020-10-21 12:18 | NUR ---
PT AWAKE AND ORIENTED, CONTINUOUSLY SITTING ON WINDOW SEAL CONTIMPLATING LIFE. FREQUENTLY HITTING CALL IGHT FOR THINGS LIKE OPENING UP SUGAR PACKETS WHICH HE HAS BEEN DOING BY HIMSELF ALL DAY UNASSISTED. EATING LUNCH. CL IN REACH, SRX2.
--- NOTE | 2020-10-21 14:13 | NUR ---
ESCORTED PT TO DIALYSIS VIA WHEELCHIAR. DELIVER/CHECKED OFF BLOOD. DELIVERED VANC FOR ADMINISTRATION.
--- NOTE | 2020-10-21 16:53 | NUR ---
PT BACK IN ROOM POST DIALYSIS.
--- NOTE | 2020-10-21 17:52 | NUR ---
PT AWAKE AND ORIENTED, SITTING IN WINDOW SILL PER PTS USUAL. CAN NOT CONCINCE TO COME DOWN. CL IN REACH
[2020-10-21 20:30] VITALS: BP 150/65
[2020-10-22 00:30] VITALS: BP 159/64
[2020-10-22 06:39] LABS: BASOPHILS 0 % (0-2); EOSINOPHILS 0.6 % (0-7); HEMATOCRIT 23.2 % (42.0-54.0); HEMOGLOBIN 7.6 g/dL (13.5-17.5); IMMATURE GRANULOCYTES 0.4 % (0-5); LYMPHOCYTE ABS# 1.19 10x3/uL (1.32-3.57); LYMPHOCYTES 6.3 % (15-50); MCH 29.8 pg (26.0-34.0); MCHC 32.8 g/dL (31.0-37.0); MEAN PLATELET VOLUME 8.8 fL (7.4-10.4); MONOCYTES 8.2 % (2-11); NEUTROPHILS 84.5 % (40-80); PLATELET COUNT 186 10x3/uL (130-400); RBC 2.55 10x6/uL (4.20-6.10); RDW 17.4 % (11.5-14.5); WBC 18.8 10x3/uL (4.8-10.8)
[2020-10-22 07:15] LABS: ALBUMIN 2.8 g/dL (3.4-5.0); BILIRUBIN - TOTAL 0.99 mg/dL (0.2-1.3); CALCIUM 9.7 mg/dL (8.5-10.1); CARBON DIOXIDE 24.9 mmol/L (21.0-32.0); CREATININE - SERUM 7.3 mg/dL (0.6-1.3); POTASSIUM - SERUM 3.9 mmol/L (3.5-5.1); PROTEIN - SERUM 7.2 g/dL (6.4-8.2); VANCOMYCIN - RANDOM 13.6 ug/mL (10.0-20.0)
[2020-10-22 08:00] VITALS: BP 162/69
--- NOTE | 2020-10-22 09:35 | EC ---
PATIENT:GERALDINE HOWELL DATE OF SERVICE: 10/16/20 SEX: M MEDICAL RECORD: [id number] DATE OF : 67 LOCATION:D.M2 D.213 AGE OF PATIENT: 55 ADMISSION DATE: 10/16/20 REFERRING PHYSICIAN: INTERPRETING PHYSICIAN: CHEMO KNOWLES MD ECHOCARDIOGRAM REPORT ECHO CHARGES 4 ECHO COMPLETE Date: 10/19/20 CLINICAL DIAGNOSIS: MRSA, ASSESS FOR VEGATATION HX OF CAD/CABG/RENAL ECHOCARDIOGRAPHIC MEASUREMENTS (adult normal given) AC root (d.<3.7cm) 3.5 cm LV Septum d (<1.2 cm> 1.9 cm Valve Excursion 1.3 cm LV Septum (systole) 2.1 cm Left Atria (s.<4.0cm> 4.8 cm LVPW d(<1.2cm) 1.5 cm RV (d.<2.3cm) 4.0 cm LVPW (sytole) 2.4 cm LV diastole(<5.6CM) 4.9 cm MV E-F(>70mm/sec) cm LV systole 2.8 cm LVOT Diameter 1.9 cm MV exc.(>10mm) 1.6 cm Est.ejection fraction (50-75%) % DOPPLER: LVIT cm/sec A 125.0cm/sec E 154.0 cm/sec LA cm/sec RVSP 65 mmHg LVOT 139 cm/sec AOP1/2T m/s Asc. 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 Ellis TAPE# PACS Pericardial Effusion N DATE OF SERVICE: Adequate 2D, color-flow imaging, spectral Doppler, and M-Mode FINDINGS: LVH is present. LV internal dimensions are normal. Wall motion is normal. EF is greater than or equal to 55%. Aortic valve sclerosis without evidence of stenosis by Doppler interrogation. Left atrium is dilated at 4.8 cm. Mitral valve is thickened with mitral annular calcification. Mild MR. Right side is grossly normal. Mild TR. ECHOCARDIOGRAM REPORT [id number] GERALDINE HOWELL TRANSINT:[id number] Voice Confirmation ID: [id number] DOCUMENT ID: [id number] CHEMO KNOWLES MD at 0935 CC: [id number] DICTATION DATE: 10/20/20 1149 PASTRY DECORATOR: 10/20/20 1201 ADM IN [address] [id number]
[2020-10-22 11:38] VITALS: BP 161/62
--- NOTE | 2020-10-22 13:14 | NUR ---
18G RFA 1 STICK. CL IN REACH, SITTING IN RECLINER. PT NOT GOING TO D/C TODAY PER RENAL WISHES. PT IS RELIEVED AND HOPING THEY DCLOT HIS VEINS IN HIS LEGS.
[2020-10-22 16:00] VITALS: BP 138/61
--- NOTE | 2020-10-22 18:14 | NUR ---
PT AWAKE AND ORIENTED, IN HIS PREFERED PERCH IN THE WINDOW SEEL DESPITE MY ADVISING AGAIST THIS PARTICULAR HABBIT. PT I/V STILL INTACT. NO COMPLAINTS OR CONCERNS AT THIS TIME. CL IN REACH.
[2020-10-22 19:16] VITALS: BP 151/56
--- NOTE | 2020-10-23 04:44 | NUR ---
PT HAS BEEN NPO SINCE MIDNIGHT FOR OLEKSANDR SCHEDULED TODAY. HELPED BACK TO BED FROM THE RESTROOM FREQUENTLY. NO S/S OF DISTRESS OBSERVED. SOME COMFUSION NOTED THIS AM. PT FOUND IN HALLWAY UNABLE TO STATE WHERE HE IS. REDIRECTED BACK TO BED. CL IN REACH. BARBARA WAY
[2020-10-23 05:13] VITALS: BP 148/60
--- NOTE | 2020-10-23 06:28 | NUR ---
PT WITH INCREASED CONFUSION DRING THE NIGHT. FREQUENTLY COMING OUT OF HIS ROOM AND GOING INTO OTHER ROOMS
[2020-10-23 08:00] VITALS: BP 166/69
[2020-10-23 08:41] LABS: BASOPHILS 0.1 % (0-2); EOSINOPHILS 0.3 % (0-7); HEMATOCRIT 23.2 % (42.0-54.0); HEMOGLOBIN 7.6 g/dL (13.5-17.5); IMMATURE GRANULOCYTES 0.6 % (0-5); LYMPHOCYTE ABS# 0.93 10x3/uL (1.32-3.57); LYMPHOCYTES 5.3 % (15-50); MCH 29.8 pg (26.0-34.0); MCHC 32.8 g/dL (31.0-37.0); MONOCYTES 10.4 % (2-11); NEUTROPHIL ABS# 14.51 10x3/uL (1.78-5.38); NEUTROPHILS 83.3 % (40-80); RBC 2.55 10x6/uL (4.20-6.10); RDW 17.1 % (11.5-14.5); WBC 17.4 10x3/uL (4.8-10.8)
[2020-10-23 08:46] LABS: PLATELET COUNT 234 10x3/uL (130-400)
[2020-10-23 09:14] LABS: ALBUMIN 2.9 g/dL (3.4-5.0); BILIRUBIN - TOTAL 1.23 mg/dL (0.2-1.3); CALCIUM 9.6 mg/dL (8.5-10.1); CARBON DIOXIDE 18.9 mmol/L (21.0-32.0); PROTEIN - SERUM 7.6 g/dL (6.4-8.2); VANCOMYCIN - RANDOM 12.1 ug/mL (10.0-20.0)
[2020-10-23 09:41] LABS: ANION GAP 24.7 mmol/L (8-16); CREATININE - SERUM 9.7 mg/dL (0.6-1.3); POTASSIUM - SERUM 4.6 mmol/L (3.5-5.1)
[2020-10-23 11:00] VITALS: BP 150/70
--- NOTE | 2020-10-23 11:43 | NUR ---
PT ESCORTED TO [facility] BLOOD AND VANC BROUGHT WITH HIM
--- NOTE | 2020-10-23 13:04 | NUR ---
PT CONFUSED IN DIALYSIS. BROUGHT PAIN MEDICATION. PT VERBALLY AGRESSIVE DEMANDING TO BE OFF IDALYISIS.
--- NOTE | 2020-10-23 14:25 | NUR ---
PT EXHIBITING ATTENTION SEEKING BEHAVIOR WITH MALE GLASS PRODUCTION MACHINE OPERATOR'S. CONTINOUSLY CALLING FOR ASSITANCE WITH TASKS HE IS CAPABLE OF DOINOG IE: PUTTING ON HIS JACKET, USING THE RESTROOM, AND OTHER MENIAL TASKS HE PREFORMS UNAIDED WHEN CARE TEAM IS COMPROMISED OF FEMALES. BACK IN ROOM POST DIALYISIS, PROVIDED LUNCH. UPDATED PTS SISTER ON CURRENT CONDITION AND PROCUEDURE SCHEDULE FOR TOMORROW. CL IN REACH, SRX2.
--- NOTE | 2020-10-23 14:29 | NUR ---
DIALYSIS TODAY, 1 LITER REMOVED AND TREATMENT ENDED EARLY PATIENT REFUSED TO COMPLETE TREATMENT ORDERED. I UNIT PRBC'S INFUSED WELL VANCOMYCIN 1 GRAM. PATIENT BECAME INCREASINGLY AGITATED AND CONFUSED THEN INSISTED TREATMENT END EARLY. REPORT GIVEN TO ANTONIO MOTA RN.
[2020-10-23 14:40] VITALS: BP 140/70
--- NOTE | 2020-10-23 15:00 | NUR ---
PT WAS HEARD SCREAMING THROUGH HIS DOOR, THEN THREW DOOR OPEN AND BEGAN SCREAMING OUT! OUT!. INVESTIGATED. PT STATES THAT HIS DOG IS IN THE ROOM IN HIS CHAIR. NO DOG WAS PRESENT. PT BECAME MORE VERBALLY AGRESSIVE STATING HE WOULD BE LEAVING AMA BECASUE HE NEEDS TO GO OUT SIDE. TECH WAS ABLE TO CALM PT DOWN BUT PT CONTINUES TO HAVE MOMENTS OF INTENSE CONFUSION AND AGRESSION. INFROMED FINANCIAL OPERATIONS ANALYST SVETA OF INCIDENT, CALLED PRIMARY AND LEFT VOICEMAIL. CONSULTED PSYCH PER RENAL. CL IN REACH. PT IN RECLINER BESIDE BED.
--- NOTE | 2020-10-23 15:20 | NUR ---
I have reviewed this patient and I concur with the Shift Assessment completed by the Licensed Practical Nurse today this shift.
--- NOTE | 2020-10-23 17:15 | NUR ---
PT REPEATEDLY ASKING FOR SCISSORS TO CUT OFF HIS FOOT WHICH HE BELIEVES ARE ACTUALLY JUST VERY TIGHT SHOES. DID NOT PROVIDE SCISSORS.
--- NOTE | 2020-10-23 19:10 | NUR ---
SITTING UP IN ROOM ON BED AGITATED, UPSET, ALERT, AWAKE, ORIENTED. REFUSING TO WEAR CARIAC MONITOR--IT IS LYING ON THE BEDSIDE TABLE AND PT REFUSES TO PUT BACK ON. PT REQUEST AMA--HOWEVER THEN CHANGES HIS MIND AND WANTS TO STAY. IV TO RT FA REMOVED/REQUEST--CATH INTACT, BANDAGE IN PLACE, PT TOLERATED WELL. DENIES ANY FURTHER NEEDS.
[2020-10-23 20:26] VITALS: BP 168/68
--- NOTE | 2020-10-23 21:15 | NUR ---
MEDS ADMINISTERED/ORDER, PT REQUEST TYLENOL AND BENADRYL. NO FURTHER NEEDS VOICED.
--- NOTE | 2020-10-24 00:14 | MORECARE ---
CASE MANAGEMENT DISCHARGE SUMMARY PATIENT: GERALDINE HOWELL UNIT: [id number] ADM DATE: 10/16/20 AGE: 55 : 67 SEX: M ROOM/BED: D.2134 AUTHOR: LIZBET MCCOY PHYSICIAN: REFERRING PHYSICIAN: NEEL FLORES MD DATE OF SERVICE: 10/24/20 Discharge Plan Patient Name: GERALDINE HOWELL [facility] [facility] 1965 Planned Disposition: Home with Home Health Anticipated Discharge Date: Discharge Date: Expected LOS: Initial Reviewer: [email or web address] Initial Review Date: 10/16/2020 Generated: 10/24/20 1:14 am DCPIA - Discharge Planning Initial Assessment Updated by [email or web address]: Katie Stockton on 10/24/20 12:12 am * Is the patient Alert and Oriented? Yes * How many steps to enter\exit or inside your home? * PCP KATHERYN MAN * [facility] * Preadmission Environment Home Alone * ADLs Independent * Equipment Cane * Other Equipment BSC * List name and contact numbers for known caregivers / representatives who currently or will assist patient after discharge: DANILO CHADWICK -[facility]- [phone] * Verbal permission to speak to the caregivers and representatives has been obtained from the patient. Yes * Community resources currently utilized None * Please name any agencies selected above. [facility] IN [place] * Additional services required to return to the preadmission environment? No * Can the patient safely return to the preadmission environment? Yes * Has this patient been hospitalized within the prior 30 days at any hospital? No Patient Name: GERALDINE HOWELL Page 10023 at 0014 All edits/amendments must be made on the electronic document DICTATION DATE: 10/24/2013 TENSION MACHINE OPERATOR: BERYL 10/24/2013 RPT#: [id number] DC DATE: STATUS: ADM IN [facility] [address] [place] [address] END OF REPORT
--- NOTE | 2020-10-24 00:21 | MORECARE ---
CASE MANAGEMENT DISCHARGE SUMMARY PATIENT: GERALDINE HOWELL UNIT: [id number] ADM DATE: 10/16/20 AGE: 55 : 67 SEX: M ROOM/BED: D.2284 AUTHOR: DARIUSDOC PHYSICIAN: REFERRING PHYSICIAN: NEEL FLORES MD DATE OF SERVICE: 10/24/20 Discharge Plan Patient Name: GERALDINE HOWELL Facility: [facility]:[place] : 1965 Planned Disposition: Home with Home Health Anticipated Discharge Date: Discharge Date: Expected LOS: Initial Reviewer: [email or web address] Initial Review Date: 10/16/2020 Generated: 10/24/20 1:20 am Comments DCP- Discharge Planning Updated by [id number]: Katie Stockton on 10/23/20 11:[address] LATE ENTRY 10/20/20 Patient Name: GERALDINE HOWELL Admission Status: ER Accout number: [id number] Admission Date: 10-16-2020 : 1965 Admission Diagnosis:PNEUMONIA, UNSPECIFIED ORGANISM Attending: NEEL FLORES Current LOS: 8 Anticipated DC Date: Planned Disposition: Home with Home Health Primary Insurance: MEDICARE A & B Discharge Planning Comments: CM met with patient to complete initial dc planning assessment. CM educated patient on the CM role and verbal consent given by patient to complete assessment. Patient lives at home alone. Patient is independent. At discharge patient plans to return home and feels this is a safe discharge. CM discussed availability of home health, rehab services, and medical equipment. Patient would like [facility] when discharged with [facility] . HALLIE completed. Patient will have family to transport home. Patient denied known discharge needs at this time. Patient requested assistance in getting into an assist living facility. CM explained to patient that while he is at dialysis to speak with his drug abuse social worker and can possibly assist with that. CM will continue to follow and will assist as needed with dc plans/needs. Midlevel Provider: Katie Stockton DCPIA - Discharge Planning Initial Assessment Updated by [email or web address]: Katie Stockton on 10/24/20 12:12 am * Is the patient Alert and Oriented? Yes * How many steps to enter\exit or inside your home? * PCP KATHERYN MAN * [facility] * Preadmission Environment Home Alone * ADLs Independent * Equipment Cane * Other Equipment BSC * List name and contact numbers for known caregivers / representatives who currently or will assist patient after discharge: DANILO CHADWICK -[facility]- [phone] * Verbal permission to speak to the caregivers and representatives has been obtained from the patient. Yes * Community resources currently utilized None * Please name any agencies selected above. [facility] [place] * Additional services required to return to the preadmission environment? No * Can the patient safely return to the preadmission environment? Yes * Has this patient been hospitalized within the prior 30 days at any hospital? No Last DP export: 10/23/20 11:14 p Patient Name: GERALDINE HOWELL Page [id number] at 0021 All edits/amendments must be made on the electronic document DICTATION DATE: 10/24/2019 JIG FILLER: BERYL 10/24/2019 RPT#: [id number] DC DATE: STATUS: ADM IN [facility] [address] [place] [address] END OF REPORT
--- NOTE | 2020-10-24 03:19 | NUR ---
NORCO AND FLEXERIL ADMINISTERED AT THIS TIME FOR C/O PAIN TO FEET--SEE MAR. ENCOURAGED PT TO SIT DOWN AND ELEVATE FEET--PT REFUSES, REASSURED AND REORIENTED.
[2020-10-24 04:32] VITALS: BP 168/76
--- NOTE | 2020-10-24 06:05 | NUR ---
UP IN HALLWAY WONDERING AROUND ORIENTED--SENT PT BACK INTO AND REASSURED--REORIENTED TO ISOLATION RULES TO STAY IN ROOM AND WEAR MASK WHEN LEAVING ROOM W/UNDERSTANDING STATED. NO DISTRESS NOTED.
[2020-10-24 06:56] LABS: BASOPHILS 0.1 % (0-2); EOSINOPHILS 0.2 % (0-7); HEMATOCRIT 26.3 % (42.0-54.0); HEMOGLOBIN 8.6 g/dL (13.5-17.5); IMMATURE GRANULOCYTES 0.6 % (0-5); LYMPHOCYTE ABS# 0.72 10x3/uL (1.32-3.57); LYMPHOCYTES 4.2 % (15-50); MCHC 32.7 g/dL (31.0-37.0); MCV 91.6 fL (80.0-100.0); MEAN PLATELET VOLUME 9.1 fL (7.4-10.4); MONOCYTES 8.6 % (2-11); NEUTROPHIL ABS# 14.67 10x3/uL (1.78-5.38); NEUTROPHILS 86.3 % (40-80); PLATELET COUNT 264 10x3/uL (130-400); RBC 2.87 10x6/uL (4.20-6.10)
[2020-10-24 07:30] LABS: ANION GAP 24.6 mmol/L (8-16); BILIRUBIN - TOTAL 1.16 mg/dL (0.2-1.3); CALCIUM 10.1 mg/dL (8.5-10.1); CARBON DIOXIDE 20.9 mmol/L (21.0-32.0); POTASSIUM - SERUM 4.5 mmol/L (3.5-5.1); PROTEIN - SERUM 7.3 g/dL (6.4-8.2)
[2020-10-24 07:33] LABS: VANCOMYCIN - RANDOM 16.6 ug/mL (10.0-20.0)
--- NOTE | 2020-10-24 07:53 | NUR ---
PT UP IN HALLWAY ASKING ABOUT HIS BREATHING TREATMENT ASK PT TO PLEASE GO BACK TO HIS ROOM DUE TO HIM BEING ON ISOLATION
[2020-10-24 08:44] VITALS: BP 173/69
--- NOTE | 2020-10-24 11:34 | NUR ---
Nutrition Reassessment/Follow-up: Good PO intake reported. HD yesterday (-1 L) but tx ended early / pt refusal to continue. Refusing OLEKSANDR. Diet: Renal PO intake: 83% avg x 6 meals No new wt; last wt: 155# (10/17) Labs noted: Na 128, K+ 4.5, Alb 3.0 Meds noted: Florajen, Pepcid, electrolyte protocol -Nutrition needs unchanged; no new wt available. -Encourage PO intake and honor food preferences within diet restrictions. -Need new wt if possible. -RD will follow up within 7 days if pt still admitted.
[2020-10-24 13:02] VITALS: BP 160/73
[2020-10-24] MEDS ORDERED: TESSALON PERLE100 MG PO (13:11)
[2020-10-24] MEDS ORDERED: DULERA 200 MCG8.8 GM INH (13:11)
--- NOTE | 2020-10-24 14:08 | CN ---
PATIENT NAME:GERALDINE HOWELL MEDICAL RECORD: [id number] : 67 LOCATION:D. D.2134 ADMIT DATE: 10/16/20 ACCOUNT: [id number] CONSULTING PHYSICIAN: CRISTIN GOMEZ MD REFERRING PHYSICIAN: NEEL FLORES MD DATE OF CONSULTATION: 10/23/2020 IDENTIFYING DATA: The patient is 55 years old and he was admitted to the hospital on a voluntary basis. CHIEF COMPLAINT: Confusion. HISTORY OF PRESENT ILLNESS: The patient has a long and complicated medical history that is most significant for stroke almost 20 years ago. He has neuropathy, hypertension, congestive heart failure, and coronary artery disease on top of the COPD. The patient is clearly quite confused and only partially oriented. It is unclear what his premorbid state would be, but he has numerous significant abnormal labs that could easily account for some or all of this abnormality. It is unknown if he has a history of drug or alcohol abuse and I do not think the answer that he gave me was reliable. He is oriented only to person. ASSESSMENT: 1. Delirium. 2. 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 However, the degree of impairment is unknown. 3. Rule out substance abuse. PLAN: At this time, I am going to treat the patient with scheduled and p.r.n. medications for agitation. He clearly needs 24-hour a day supervision at this point; however, it is unclear how much he may improve once his underlying metabolic abnormalities are corrected. He does require constant redirection to keep him in his room while he is on infection precautions. I do not think he retains the instructions that he has been given. TRANSINT:[id number] Voice Confirmation ID: [id number] DOCUMENT ID: [id number] CRISTIN GOMEZ MD at 1408 CC: [id number] DICTATION DATE: 10/23/20 1539 DIAMOND SAW OPERATOR: 10/23/20 1627 ADM IN [place] [id number] [place] [address]
--- NOTE | 2020-10-24 14:16 | MORECARE ---
CASE MANAGEMENT DISCHARGE SUMMARY PATIENT: GERALDINE HOWELL UNIT: [id number] ADM DATE: 10/16/20 AGE: 55 : 67 SEX: M ROOM/BED: D.2434 AUTHOR: DARIUSDOC PHYSICIAN: REFERRING PHYSICIAN: NEEL FLORES MD DATE OF SERVICE: 10/24/20 Discharge Plan Patient Name: GERALDINE HOWELL Facility: [facility]:[place] : 1965 Planned Disposition: Home with Home Health Anticipated Discharge Date: Discharge Date: Expected LOS: Initial Reviewer: [email or web address] Initial Review Date: 10/16/2020 Generated: 10/24/20 3:15 pm Comments DCP- Discharge Planning Updated by [email or web address]: Kristy Fisher on 10/24/20 1:[address] CM received DC orders. I called [facility] and they are unable to accept due to availability. I spoke with the patient and he states to use any HHS available. I called [facility] and referral faxed. IMM explained over the phone per Isolation protocol, given at bedside, copy placed in MR. I spoke with Arlene Felipe and he can return to his [place] Unit as usual. He states either his sister will take him home or he will take a taxi. CM will continue to follow and assist with discharge planning/needs. DCP- Discharge Planning Updated by [email or web address]: Katie Stockton on 10/23/20 11:[address] LATE ENTRY 10/20/20 Patient Name: GERALDINE HOWELL Admission Status: ER Accout number: [id number] Admission Date: 10-16-2020 : 1965 Admission Diagnosis:PNEUMONIA, UNSPECIFIED ORGANISM Attending: NEEL FLORES Current LOS: 8 Anticipated DC Date: Planned Disposition: Home with Home Health Primary Insurance: MEDICARE A & B Discharge Planning Comments: CM met with patient to complete initial dc planning assessment. CM educated patient on the CM role and verbal consent given by patient to complete assessment. Patient lives at home alone. Patient is independent. At discharge patient plans to return home and feels this is a safe discharge. CM discussed availability of home health, rehab services, and medical equipment. Patient would like HHs when discharged with [facility] . HALLIE completed. Patient will have family to transport home. Patient denied known discharge needs at this time. Patient requested assistance in getting into an assist living facility. CM explained to patient that while he is at dialysis to speak with his social security benefits interviewer and can possibly assist with that. CM will continue to follow and will assist as needed with dc plans/needs. Section Hand Helper: Katie Stockton DCPIA - Discharge Planning Initial Assessment Updated by [email or web address]: Katie Stockton on 10/24/20 12:12 am * Is the patient Alert and Oriented? Yes * How many steps to enter\exit or inside your home? * PCP KATHERYN Gonzalez [place] * [facility] * Preadmission Environment Home Alone * ADLs Independent * Equipment Cane * Other Equipment BSC * List name and contact numbers for known caregivers / representatives who currently or will assist patient after discharge: DANILO CHADWICK -[facility]- [phone] * Verbal permission to speak to the caregivers and representatives has been obtained from the patient. Yes * Community resources currently utilized None * Please name any agencies selected above. [facility] [place] * Additional services required to return to the preadmission environment? No * Can the patient safely return to the preadmission environment? Yes * Has this patient been hospitalized within the prior 30 days at any hospital? No External Providers External Provider: [facility] Next Contact Date: Service Request Date: Service Type: Resolution: Reviewer: Comments: Coverage Notice Reviewer: [id number] Lisa Fisher Notice Issued Date-Time: 10/24/2020 14:14 Notice Type: IM Discharge Notice Notice Delivered To: Patient Relationship to Patient: Self Architectural Drafter Name: Delivery Method: PHONE - Phone Kelsie Days: Prior Verbal Notification: Recipient Understood Notice: Yes Recipient Signature: Med Rec Note Co-signed by Attending: Coverage Notice Comment: IMM explained, given, copy placed in MR Reviewer: [id number] Lisa Fisher Notice Issued Date-Time: 10/24/2020 14:14 Notice Type: Patient Choice Letter Notice Delivered To: Patient Relationship to Patient: Self Architectural Drafter Name: Delivery Method: PHONE - Phone Kelsie Days: Prior Verbal Notification: Recipient Understood Notice: Yes Recipient Signature: Med Rec Note Co-signed by Attending: Coverage Notice Comment: HALLIE for any home health services Last DP export: 10/23/20 11:21 p Patient Name: GERALDINE HOWELL Page [id number] at 1416 All edits/amendments must be made on the electronic document DICTATION DATE: 10/24/201414 EYEGLASS FRAMES POLISHER: BERYL 10/24/201414 RPT#: [id number] DC DATE: STATUS: ADM IN [facility] [address] [place] [address] END OF REPORT
--- NOTE | 2020-10-24 14:21 | NUR ---
I have reviewed this patient and I concur with the Shift Assessment completed by the Licensed Practical Nurse today this shift.
--- NOTE | 2020-10-24 14:30 | NUR ---
PT WENT TO DIALYSIS VIA WHEELCHAIR
--- NOTE | 2020-10-24 16:56 | MORECARE ---
CASE MANAGEMENT DISCHARGE SUMMARY PATIENT: GERALDINE HOWELL UNIT: [id number] ADM DATE: 10/16/20 AGE: 55 : 67 SEX: M ROOM/BED: D.2134 AUTHOR: DARIUSDOC PHYSICIAN: REFERRING PHYSICIAN: NEEL FLORES MD DATE OF SERVICE: 10/24/20 Discharge Plan Patient Name: GERALDINE HOWELL Facility: [facility]:[place] : 1965 Planned Disposition: Home with Home Health Anticipated Discharge Date: Discharge Date: Expected LOS: Initial Reviewer: [id number] Initial Review Date: 10/16/2020 Generated: 10/24/20 5:56 pm Comments DCP- Discharge Planning Updated by [email or web address]: Kristy Fisher on 10/24/20 3:[address] CM spoke with Urvashi at [facility] and they will accept patient. DCP- Discharge Planning Updated by [email or web address]: Kristy Fisher on 10/24/20 1:[address] CM received DC orders. I called [facility] and they are unable to accept due to availability. I spoke with the patient and he states to use any [facility] available. I called [facility] and referral faxed. IMM explained over the phone per Isolation protocol, given at bedside, copy placed in MR. I spoke with Arlene Felipe and he can return to his [place] Unit as usual. He states either his sister will take him home or he will take a taxi. CM will continue to follow and assist with discharge planning/needs. DCP- Discharge Planning Updated by [email or web address]: Katie Stockton on 10/23/20 11:[address] LATE ENTRY 10/20/20 Patient Name: GERALDINE HOWELL Admission Status: ER Accout number: [id number] Admission Date: 10-16-2020 : 1965 Admission Diagnosis:PNEUMONIA, UNSPECIFIED ORGANISM Attending: NEEL FLORES Current LOS: 8 Anticipated DC Date: Planned Disposition: Home with Home Health Primary Insurance: MEDICARE A & B Discharge Planning Comments: CM met with patient to complete initial dc planning assessment. CM educated patient on the CM role and verbal consent given by patient to complete assessment. Patient lives at home alone. Patient is independent. At discharge patient plans to return home and feels this is a safe discharge. CM discussed availability of home health, rehab services, and medical equipment. Patient would like HHs when discharged with [facility] . HALLIE completed. Patient will have family to transport home. Patient denied known discharge needs at this time. Patient requested assistance in getting into an assist living facility. CM explained to patient that while he is at dialysis to speak with his director social and can possibly assist with that. CM will continue to follow and will assist as needed with dc plans/needs. Superintendent Communications: Katie Stockton DCPIA - Discharge Planning Initial Assessment Updated by [email or web address]: Katie Stockton on 10/24/20 12:12 am * Is the patient Alert and Oriented? Yes * How many steps to enter\exit or inside your home? * PCP KATHERYN MAN * [facility] * Preadmission Environment Home Alone * ADLs Independent * Equipment Cane * Other Equipment BSC * List name and contact numbers for known caregivers / representatives who currently or will assist patient after discharge: DANILO CHADWICK -[facility] [phone] * Verbal permission to speak to the caregivers and representatives has been obtained from the patient. Yes * Community resources currently utilized None * Please name any agencies selected above. [facility] [place] * Additional services required to return to the preadmission environment? No * Can the patient safely return to the preadmission environment? Yes * Has this patient been hospitalized within the prior 30 days at any hospital? No Coverage Notice Reviewer: [id number] Fisher Notice Issued Date-Time: 10/24/2020 14:14 Notice Type: IM Discharge Notice Notice Delivered To: Patient Relationship to Patient: Self Line Clearance Foreman Name: Delivery Method: PHONE - Phone Kelsie Days: Prior Verbal Notification: Recipient Understood Notice: Yes Recipient Signature: Med Rec Note Co-signed by Attending: Coverage Notice Comment: IMM explained, given, copy placed in MR Reviewer: [id number] Lisa Fisher Notice Issued Date-Time: 10/24/2020 14:14 Notice Type: Patient Choice Letter Notice Delivered To: Patient Relationship to Patient: Self Line Clearance Foreman Name: Delivery Method: PHONE - Phone Kelsie Days: Prior Verbal Notification: Recipient Understood Notice: Yes Recipient Signature: Med Rec Note Co-signed by Attending: Coverage Notice Comment: HALLIE for any home health services Last DP export: 10/24/20 1:16 p Patient Name: GERALDINE HOWELL Page [phone] at 1656 All edits/amendments must be made on the electronic document DICTATION DATE: 10/24/201655 RETAIL SELLING FLOOR LEADER: BERYL 10/24/201655 RPT#: [id number] DC DATE: STATUS: ADM IN [facility] [address] [place] [address] END OF REPORT
--- NOTE | 2020-10-24 17:52 | NUR ---
PT BACK FROM DIALYSIS
--- NOTE | 2020-10-24 18:55 | NUR ---
PT DISCHARGED TO HOME VIA WHEELCHAIR WITH SISTER DISCHARGE MEDS AND SUMMARY REVIEWED WITH PT
--- NOTE | 2020-10-25 09:45 | MORECARE ---
CASE MANAGEMENT DISCHARGE SUMMARY PATIENT: GERALDINE HOWELL UNIT: [id number] ADM DATE: 10/16/20 AGE: 55 : 67 SEX: M ROOM/BED: D.2134 AUTHOR: LIZBET MCCOY PHYSICIAN: REFERRING PHYSICIAN: NEEL FLORES MD DATE OF SERVICE: 10/25/20 Discharge Plan Patient Name: GERALDINE HOWELL Facility: [facility]:[place] : 1965 Planned Disposition: Home with Home Health Anticipated Discharge Date: Discharge Date: 10/24/2020 Expected LOS: Initial Reviewer: [id number] Initial Review Date: 10/16/2020 Generated: 10/25/20 10:44 am Comments DCP- Discharge Planning Updated by [email or web address]: Kristy Fisher on 10/24/20 3:[address] CM spoke with Urvashi at [facility] and they will accept patient. DCP- Discharge Planning Updated by [id number]: Kristy Fisher on 10/24/20 1:[address] CM received DC orders. I called [facility] and they are unable to accept due to availability. I spoke with the patient and he states to use any HHS available. I called [facility] and referral faxed. IMM explained over the phone per Isolation protocol, given at bedside, copy placed in MR. I spoke with Arlene Felipe and he can return to his [place] Unit as usual. He states either his sister will take him home or he will take a taxi. CM will continue to follow and assist with discharge planning/needs. DCP- Discharge Planning Updated by [email or web address]: Katie Stockton on 10/23/20 11:[address] LATE ENTRY 10/20/20 Patient Name: GERALDINE HOWELL Admission Status: ER Accout number: [id number] Admission Date: 10-16-2020 : 1965 Admission Diagnosis:PNEUMONIA, UNSPECIFIED ORGANISM Attending: NEEL FLORES Current LOS: 8 Anticipated DC Date: Planned Disposition: Home with Home Health Primary Insurance: MEDICARE A & B Discharge Planning Comments: CM met with patient to complete initial dc planning assessment. CM educated patient on the CM role and verbal consent given by patient to complete assessment. Patient lives at home alone. Patient is independent. At discharge patient plans to return home and feels this is a safe discharge. CM discussed availability of home health, rehab services, and medical equipment. Patient would like [facility] when discharged with [facility] . HALLIE completed. Patient will have family to transport home. Patient denied known discharge needs at this time. Patient requested assistance in getting into an assist living facility. CM explained to patient that while he is at dialysis to speak with his social media project manager and can possibly assist with that. CM will continue to follow and will assist as needed with dc plans/needs. Environmental Health Manager: Katie Stockton DCPIA - Discharge Planning Initial Assessment Updated by [email or web address]: Katie Stockton on 10/24/20 12:12 am * Is the patient Alert and Oriented? Yes * How many steps to enter\exit or inside your home? * PCP KATHERYN MAN * [facility] * Preadmission Environment Home Alone * ADLs Independent * Equipment Cane * Other Equipment BSC * List name and contact numbers for known caregivers / representatives who currently or will assist patient after discharge: DANILO CHADWICK -[facility] [phone] * Verbal permission to speak to the caregivers and representatives has been obtained from the patient. Yes * Community resources currently utilized None * Please name any agencies selected above. [facility] [place] * Additional services required to return to the preadmission environment? No * Can the patient safely return to the preadmission environment? Yes * Has this patient been hospitalized within the prior 30 days at any hospital? No Coverage Notice Reviewer: [id number] Fisher Notice Issued Date-Time: 10/24/2020 14:14 Notice Type: IM Discharge Notice Notice Delivered To: Patient Relationship to Patient: Self Sign Maker Name: Delivery Method: PHONE - Phone Kelsie Days: Prior Verbal Notification: Recipient Understood Notice: Yes Recipient Signature: Med Rec Note Co-signed by Attending: Coverage Notice Comment: IMM explained, given, copy placed in MR Reviewer: [id number] Fisher Notice Issued Date-Time: 10/24/2020 14:14 Notice Type: Patient Choice Letter Notice Delivered To: Patient Relationship to Patient: Self Sign Maker Name: Delivery Method: PHONE - Phone Kelsie Days: Prior Verbal Notification: Recipient Understood Notice: Yes Recipient Signature: Med Rec Note Co-signed by Attending: Coverage Notice Comment: HALLIE for any home health services Last DP export: 10/24/20 3:56 p Patient Name: GERALDINE HOWELL Page [phone] at 0945 All edits/amendments must be made on the electronic document DICTATION DATE: 10/25/20943 BUFFING WHEEL OPERATOR: BERYL 10/25/2044 RPT#: [id number] DC DATE:10/24/20 STATUS: DIS IN [facility] [address] [place] [address] END OF REPORT
== END 2020-10-24 18:57 | disposition home health service (06) | DRG 193 ==
LOC: D.ER 11:35 → D.M2 13:58 → D.EDHOLD 13:58 → D.M2 14:02
PROVIDERS: Emergency Medicine; Internal Medicine Nephrology; ADMIT Emergency Medicine; ATTEND Emergency Medicine
PROC: 5A1D70Z Performance of Urinary Filtration, Intermittent, Less than 6 Hours Per Day (ICD-10-PCS; principal; 2020-10-16)
DX: J18.9 Pneumonia, unspecified organism (principal); J96.21 Acute and chronic respiratory failure with hypoxia; N18.6 End stage renal disease; I50.33 Acute on chronic diastolic (congestive) heart failure; I13.2 Hypertensive heart and chronic kidney disease with heart failure and with stage 5 chronic kidney disease, or end stage renal disease; E87.1 Hypo-osmolality and hyponatremia; F17.203 Nicotine dependence unspecified, with withdrawal; D68.59 Other primary thrombophilia; R78.81 Bacteremia; Z99.2 Dependence on renal dialysis; Z91.15 Patient's noncompliance with renal dialysis; D63.1 Anemia in chronic kidney disease; E87.5 Hyperkalemia; E78.5 Hyperlipidemia, unspecified; K21.9 Gastro-esophageal reflux disease without esophagitis; F41.8 Other specified anxiety disorders; G89.4 Chronic pain syndrome; J30.9 Allergic rhinitis, unspecified; I25.10 Atherosclerotic heart disease of native coronary artery without angina pectoris; D50.9 Iron deficiency anemia, unspecified; I73.9 Peripheral vascular disease, unspecified; Z86.73 Personal history of transient ischemic attack (TIA), and cerebral infarction without residual deficits; Z91.19 Patient's noncompliance with other medical treatment and regimen; A49.02 Methicillin resistant Staphylococcus aureus infection, unspecified site